=== PATIENT | male | born 1935 | race Caucasian/White ===

== ENCOUNTER 2017-03-05 13:53 | Inpatient (IN) | payer MEDICARE, BC ==
[~2017-03-05] VITALS: Ht 182.9 cm; Wt 61.2 kg
[~2017-03-05 13:53] MED LIST: ASPI81TA31 PO; ATOR80TA PO; CITA10TA9 PO; FINA5TAB11 PO; HYDR-3976 PO
--- NOTE | 2017-03-05 14:00 | NUR ---
PT IS IN ROOM #2B. DR OSORIO EVALUATED THE PT.
[2017-03-05] MEDS ORDERED: IV NORMAL SALINE 1000 ML BAG IV ONE (14:45)
[2017-03-05 15:20] LABS: BASOPHILS % (AUTO) 0.7 % (0.0-2.0); EOSINOPHILS # (AUTO) 0.1 K/uL (0.0-0.7); EOSINOPHILS % (AUTO) 2.1 % (0.0-7.0); HEMATOCRIT 32.7 % (36.7-47.1); HEMOGLOBIN 10.8 g/dL (12.5-16.3); LYMPHOCYTES # (AUTO) 0.8 K/uL (20.0-40.0); LYMPHOCYTES % (AUTO) 12.1 % (20.5-51.5); MEAN CORPUSCULAR HEMOGLOBIN 30.7 uug (23.8-33.4); MEAN CORPUSCULAR HGB CONC 33 g/dL (32.5-36.3); MEAN CORPUSCULAR VOLUME 92.8 fL (73.0-96.2); MONOCYTES # (AUTO) 0.9 K/uL (2.0-10.0); MONOCYTES % (AUTO) 12.6 % (0.0-11.0); NEUTROPHILS # (AUTO) 5.1 K/uL (1.8-8.9); NEUTROPHILS % (AUTO) 72.5 % (38.5-71.5); PLATELET COUNT (AUTO) 211 K/uL (152-348); RED BLOOD CELL COUNT(AUTO) 3.52 MIL/uL (4.06-5.63)
[2017-03-05 15:25] LABS: *BILIRUBIN,URIN NEGATIVE (NEGATIVE); *BLOOD, URINE 1+ (NEGATIVE); *CLARITY,URINE SLIGHTLY CLOUDY (CLEAR); *COLOR,URINE YELLOW (YELLOW); *KETONES,URINE 1+ (NEGATIVE); *PROTEIN,URINE NEGATIVE (NEGATIVE); LEUKOCYTE ESTERASE ,URINE NEGATIVE (NEGATIVE); NITRITE, URINE NEGATIVE (NEGATIVE); PH,URINE 7.5 (5.0-8.0); UGLUCOSE NEGATIVE (NEGATIVE)
[2017-03-05 15:38] LABS: ALANINE AMINOTRANSFERASE 12 U/L (16-63); ALKALINE PHOSPHATASE 72 U/L (50-136); ASPARTATE AMINOTRANSFERASE 16 U/L (15-37); BILIRUBIN,DIRECT 0.2 mg/dL (0.0-0.2); BILIRUBIN,TOTAL 0.8 mg/dL (0.2-1.0); CARBON DIOXIDE 28 mmol/L (21-32); CHLORIDE 105 mmol/L (98-107); CREATININE 0.9 mg/dL (0.6-1.3); GLUCOSE 92 mg/dL (74-106); POTASSIUM 3.9 mmol/L (3.5-5.1); TOTAL PROTEIN, SERUM 6.5 g/dL (6.4-8.2); UREA NITROGEN, BLOOD 20 mg/dL (7-18); URINE AMORPHOUS PHOSPHATES MODERATE /HPF; WBC,URINE 0-3 /HPF (0-3)
[2017-03-05 15:43] LABS: BACTERIA,URINE NONE SEEN /HPF (NONE SEEN); SQUAMOUS EPITHELIAL CELL,UR FEW /HPF (NONE SEEN)
[2017-03-05 15:45] LABS: ACETAMINOPHEN < 2.0 ug/mL (10-30)
[2017-03-05 15:46] LABS: THYROID STIMULATING HORMONE 3.826 mIU/mL (0.358-3.740)
[2017-03-05 16:04] LABS: ETHANOL < 3 MG/DL (0-0)
--- NOTE | 2017-03-05 18:03 | NUR ---
REPORT WAS GIVEN TO WARP KNITTER HELPER . PT WAS TRANSFERED TO ROOM #208.
--- NOTE | 2017-03-05 18:30 | NUR ---
received from ER awake but confused, on room air,tele applied SR 80's, denies of pain, oriented to self only, bed alarm on- will endorse to next shift
[2017-03-05 18:39] VITALS: BP 147/78
[2017-03-05] MEDS ORDERED: Z GUARD REMEDY PASTE 57 GM TUBE TOP PRN (19:15)
[2017-03-05] MEDS ORDERED: ENOXAPARIN SODIUM 40 MG/0.4 ML DISP.SYRIN SQ SCH ×2 (19:15→21:00)
--- NOTE | 2017-03-05 19:30 | NUR ---
admitted new patient ,awake,confused calm and cooperative,skin slightly jaundice,NSR on monitor,family at bedside, plan of care explained to patient and family, stated patient having 2 falls at home today,no injury or wound noted,fall precautions, bed alarm on, closely monitor.
[2017-03-05 20:00] VITALS: BP 118/70
[2017-03-05] MEDS: ATORVASTATIN 40 MG TABLET PO SCH (20:43)
[2017-03-05] MEDS: IV NS 1000 ML 1,000 ML IV PRN (20:53)
[2017-03-06] MEDS ORDERED: LORAZEPAM 1 MG TABLET PO ONE (01:15)
--- NOTE | 2017-03-06 01:15 | NUR ---
patient got very confused,agitated, kicking,hitting,try to remove ivf and tele monitor, was notified, Ativan 1 mg po admin.
[2017-03-06] MEDS ORDERED: LORAZEPAM 1 MG TABLET ONE (01:33)
--- NOTE | 2017-03-06 02:35 | NUR ---
Troponin 0.103 ,Oscar Moore SIGNS SALES REPRESENTATIVE was notified order received .patient calm down, no acute distress.
[2017-03-06 04:00] VITALS: BP 133/51
--- NOTE | 2017-03-06 08:00 | NUR ---
awake, alert, very confused, oriented to self only, trying to get out of bed, legs on the rail, repositioned up in bed, bed alarm on, no distress noted, has bruises on right thigh and abrased area on left epperson, fed with breakfast by EPIC ANALYST, aspiration precaution observed
[2017-03-06 08:18] LABS: BASOPHILS # (AUTO) 0.1 K/uL (0.0-8.0); BASOPHILS % (AUTO) 0.8 % (0.0-2.0); HEMOGLOBIN 10.6 g/dL (12.5-16.3); LYMPHOCYTES # (AUTO) 0.7 K/uL (20.0-40.0); MEAN CORPUSCULAR HEMOGLOBIN 30.7 uug (23.8-33.4); MEAN CORPUSCULAR HGB CONC 33 g/dL (32.5-36.3); MEAN CORPUSCULAR VOLUME 92.4 fL (73.0-96.2); MONOCYTES # (AUTO) 1.4 K/uL (2.0-10.0); MONOCYTES % (AUTO) 10.1 % (0.0-11.0); NEUTROPHILS # (AUTO) 11.6 K/uL (1.8-8.9); NEUTROPHILS % (AUTO) 84.1 % (38.5-71.5); PLATELET COUNT (AUTO) 224 K/uL (152-348); RED BLOOD CELL COUNT(AUTO) 3.47 MIL/uL (4.06-5.63); WHITE BLOOD COUNT (AUTO) 13.8 K/uL (3.6-10.2)
[2017-03-06] MEDS: ASPIRIN 81 MG TAB.CHEW PO SCH (08:32)
[2017-03-06] MEDS: CITALOPRAM 10 MG TABLET PO SCH (08:32)
[2017-03-06] MEDS: FINASTERIDE 5 MG TABLET PO SCH (08:32)
[2017-03-06 09:02] LABS: IRON, SERUM 9 ug/dL (50-175)
[2017-03-06 09:09] LABS: CHOLESTEROL 136 mg/dL (<200); HDL CHOLESTEROL 53 mg/dL (40-60); TRIGLYCERIDES 36 MG/DL (30-150)
[2017-03-06 09:20] LABS: ALANINE AMINOTRANSFERASE 14 U/L (16-63); ALKALINE PHOSPHATASE 71 U/L (50-136); ASPARTATE AMINOTRANSFERASE 32 U/L (15-37); BILIRUBIN,TOTAL 1.1 mg/dL (0.2-1.0); CARBON DIOXIDE 23 mmol/L (21-32); CHLORIDE 106 mmol/L (98-107); GLUCOSE 96 mg/dL (74-106); LIPASE 34 U/L (73-393); MAGNESIUM 1.5 mg/dL (1.8-2.4); PHOSPHOROUS 3.1 mg/dL (2.5-4.9); POTASSIUM 3.9 mmol/L (3.5-5.1); TOTAL PROTEIN, SERUM 6.5 g/dL (6.4-8.2); UREA NITROGEN, BLOOD 19 mg/dL (7-18)
--- NOTE | 2017-03-06 10:00 | NUR ---
placed on margaux chair, call light with reach, monitored closely
--- NOTE | 2017-03-06 10:30 | NUR ---
seen by PT- ambulated in [place]- see notes
[2017-03-06 11:45] VITALS: BP 132/59
[2017-03-06] MEDS: IV NS 1000 ML 1,000 ML IV PRN (12:11)
--- NOTE | 2017-03-06 13:00 | NUR ---
back to bed with assist- bed alrm on, family here visiting, 2d tv technician here
--- NOTE | 2017-03-06 14:40 | NUR ---
out of bed, assisted to margaux chair, here at bedside
[2017-03-06 15:56] VITALS: BP 139/54
--- NOTE | 2017-03-06 17:00 | NUR ---
back to bed, still trying to get out of bed, kept clean and dry, at bedside
--- NOTE | 2017-03-06 18:47 | NUR ---
still trying to get out of bed, sitter at bedside, all needs attended and met, no distress noted, remains on SR
[2017-03-06 20:00] VITALS: BP 155/78
[2017-03-06] MEDS ORDERED: ENOXAPARIN SODIUM 40 MG/0.4 ML DISP.SYRIN SQ SCH (21:00)
--- NOTE | 2017-03-06 22:00 | NUR ---
Patient constantly tries to get out of bed, tries to pull out IV and bandages on right elbow. Placed patient on margaux chair, patient settled down. 1:1 sitter provided for safety. Will continue to monitor.
[2017-03-06] MEDS: ATORVASTATIN 40 MG TABLET PO SCH (22:15)
[2017-03-06] MEDS: ACETAMINOPHEN 325 MG TABLET PO PRN (22:15)
[2017-03-06] MEDS: METOPROLOL TARTRATE 25 MG TABLET PO SCH (22:16)
[2017-03-06] MEDS: ENOXAPARIN SODIUM 60 MG/0.6 ML DISP.SYRIN SQ SCH (22:19)
[2017-03-07] VITALS: BP 140/70
[2017-03-07] MEDS: IV NS 1000 ML 1,000 ML IV PRN (01:49)
[2017-03-07] MEDS: ONDANSETRON 4 MG/2 ML VIAL IV PRN (02:03)
[2017-03-07 05:00] VITALS: BP 131/65
--- NOTE | 2017-03-07 06:30 | NUR ---
Patient awake most of the night, keeps eyes close but easily wakes up. Patient more comfortable in margaux chair than in bed, does not try to get up. Patient is in no distress, no sob, no repeated episodes of c/o nausea/vomiting. Provided oral fluids. IVF infusing, no infiltration noted. Safety measures in place, 1:1 sitter provided, will continue to monitor.
[2017-03-07 07:07] LABS: BASOPHILS % (AUTO) 0.1 % (0.0-2.0); HEMATOCRIT 32.3 % (36.7-47.1); HEMOGLOBIN 10.7 g/dL (12.5-16.3); LYMPHOCYTES # (AUTO) 0.8 K/uL (20.0-40.0); LYMPHOCYTES % (AUTO) 3.8 % (20.5-51.5); MEAN CORPUSCULAR HEMOGLOBIN 30.7 uug (23.8-33.4); MEAN CORPUSCULAR HGB CONC 33 g/dL (32.5-36.3); MEAN CORPUSCULAR VOLUME 92.7 fL (73.0-96.2); MONOCYTES # (AUTO) 1.7 K/uL (2.0-10.0); MONOCYTES % (AUTO) 8.2 % (0.0-11.0); NEUTROPHILS # (AUTO) 18.4 K/uL (1.8-8.9); NEUTROPHILS % (AUTO) 87.9 % (38.5-71.5); PLATELET COUNT (AUTO) 283 K/uL (152-348); RED BLOOD CELL COUNT(AUTO) 3.49 MIL/uL (4.06-5.63); WHITE BLOOD COUNT (AUTO) 20.9 K/uL (3.6-10.2)
[2017-03-07 07:22] VITALS: BP 149/68
[2017-03-07 07:28] LABS: ALANINE AMINOTRANSFERASE 32 U/L (16-63); ALKALINE PHOSPHATASE 73 U/L (50-136); ASPARTATE AMINOTRANSFERASE 109 U/L (15-37); BILIRUBIN,TOTAL 0.9 mg/dL (0.2-1.0); CARBON DIOXIDE 23 mmol/L (21-32); CHLORIDE 108 mmol/L (98-107); CREATININE 1.8 mg/dL (0.6-1.3); GLUCOSE 96 mg/dL (74-106); MAGNESIUM 1.9 mg/dL (1.8-2.4); PHOSPHOROUS 4.1 mg/dL (2.5-4.9); POTASSIUM 4.5 mmol/L (3.5-5.1); TOTAL PROTEIN, SERUM 6.9 g/dL (6.4-8.2); UREA NITROGEN, BLOOD 33 mg/dL (7-18)
--- NOTE | 2017-03-07 08:00 | NUR ---
still very confused, still tries to get out of bed, sitter at bedside, fed with breakfast by CORE WINDER MACHINE OPERATOR, took his meds, aspiration precautions observed, Tele SR with PACs, bed alarm on, Troponin level 6.793- called Dr Kaufman and informed, no order given
[2017-03-07] MEDS: FINASTERIDE 5 MG TABLET PO SCH (08:29)
[2017-03-07] MEDS: ASPIRIN 81 MG TAB.CHEW PO SCH (08:29)
[2017-03-07] MEDS: CITALOPRAM 10 MG TABLET PO SCH (08:30)
[2017-03-07] MEDS: METOPROLOL TARTRATE 25 MG TABLET PO SCH ×2 (08:30→21:02)
[2017-03-07] MEDS: ENOXAPARIN SODIUM 60 MG/0.6 ML DISP.SYRIN SQ SCH ×2 (08:31→21:05)
--- NOTE | 2017-03-07 11:00 | NUR ---
pt calm and resting, seen by Dr Franco with orders- in need of urine specimen- 1:[address] Wright informed of elevated troponin and bun and creat- no order given
[2017-03-07] MEDS ORDERED: DOSING BY PHARMACY-MD TO SPECIFY MED/ROUTE XX PRN (11:45)
[2017-03-07 12:01] VITALS: BP 116/58
[2017-03-07 12:02] LABS: BAND % (MANUAL) 7 % (0-10); LYMPHOCYTES % (MANUAL) 4 % (20-40); MONOCYTES % (MANUAL) 5 % (2-10); NEUTROPHILS % (MANUAL) 84 % (42-75)
[2017-03-07] MEDS ORDERED: VANCOMYCIN IV 1 G in PREMIXED 0 EACH IV ONE (14:15)
[2017-03-07] MEDS: PIPERACILLIN/TAZOBACTAM/D5W 2.25 G in PREMIXED 1 EACH IV SCH ×3 (14:29→23:38)
--- NOTE | 2017-03-07 14:58 | NUR ---
Clinical pharmacy Note: Vancomycin Pharmacy to Dose Subjective: To start vancomycin in this 81 y/o gentleman for indication of sepsis Objective: height 182 cm weight 61 kg BUN 33 Scr 1.8 Wbc 20.9 temp 98.6 Assessment/Plan Due to advanced age and renal function, will dose per fall off level for now. 1gm x 1 given today at 1430. Random level ordered with am labs tomorrow. Will check level and dose as needed. Will follow renal function and consider ordering scheduled regimen if were to appear stable.
--- NOTE | 2017-03-07 15:25 | NUR ---
voided small amount of very cloudy urine- sent to lab
[2017-03-07 16:00] VITALS: BP 139/61
--- NOTE | 2017-03-07 16:00 | NUR ---
restless and looks in discomfort, urinary bladder looks distended, bladder scan done- obtained >900ml, informed with order to insert nazario cath and send urine for culture
--- NOTE | 2017-03-07 16:23 | NUR ---
nazario cath coudet #16 inserted- dtolerated fairly- drained over 1000ml, urine specimen sent to lab, Dr Kaufman spoke to at length and so with Dr Bowling (family MD) and Dr Wright- pt to be DNR/DNI
[2017-03-07 16:39] LABS: *BILIRUBIN,URIN NEGATIVE (NEGATIVE); *BLOOD, URINE 3+ (NEGATIVE); *CLARITY,URINE TURBID (CLEAR); *COLOR,URINE YELLOW (YELLOW); *KETONES,URINE 1+ (NEGATIVE); *PROTEIN,URINE 2+ (NEGATIVE); *UROBILINOGEN,URINE 0.2 E.U./dl (NORMAL); LEUKOCYTE ESTERASE ,URINE 3+ (NEGATIVE); NITRITE, URINE NEGATIVE (NEGATIVE); UGLUCOSE NEGATIVE (NEGATIVE)
[2017-03-07 17:09] LABS: *CREATININE,URINE 109.3 mg/dL (30-125); *URINE TOTAL PROTEIN RANDOM 134.6 mg/dL (<150/24HR)
--- NOTE | 2017-03-07 18:00 | NUR ---
pt is resting on bed. pt urine draining amounted 1750 ml . safety was provided. Medications are given.
[2017-03-07 18:31] LABS: BACTERIA,URINE MANY /HPF (NONE SEEN); SQUAMOUS EPITHELIAL CELL,UR MODERATE /HPF (NONE SEEN); WBC,URINE TNTC /HPF (0-3)
[2017-03-07 19:00] VITALS: BP 109/54
--- NOTE | 2017-03-07 19:30 | NUR ---
PATIENT IN BED AWAKE, NO SOB NO CHEST PAIN NOTED, RHYTHM IS SINUS RHYTHM AT THIS TIME, KIM CATH DRAINING WITH BLOOD TINGE COLOR, CONT TO MONITOR.
--- NOTE | 2017-03-07 20:00 | NUR ---
DR RENEE UROLOGIST CAME TO SEE THE PATIENT WITH NO NEW ORDER AT THIS TIME. CONT TO MONITOR.
[2017-03-07] MEDS: ATORVASTATIN 40 MG TABLET PO SCH (21:01)
[2017-03-08] VITALS (7 sets, daily range): BP systolic 90–113; BP diastolic 41–67
--- NOTE | 2017-03-08 02:11 | NUR ---
PATIENT KIM CATH STILL DRAINING WITH BLOODY TINGE COLOR URINE, NOTIFY DR. JURGEN RIOJAS WITH ORDER OF CBC, AND IRRIGATE THE KIM NEEDED.
--- NOTE | 2017-03-08 02:15 | NUR ---
PATIENT KIM CATH DRAINING WITH BLOODY URINE, IRRIGATED PATIENT KIM UNTIL FAIRLY CLEAR, NO SOB NO CHEST PAIN NOTED, RHYTHM SINUS RHYTHM, NO COMPLAIN OF PAIN, AWAKE, VERBALLY RESPONSIVE, CONT TO MONITOR. CONT 1;1 SITTER FOR SAFETY, NO BEHAVIORAL PROBLEM NOTED, AT THIS TIME. CONT TO MONITOR.
[2017-03-08 02:55] LABS: BASOPHILS % (AUTO) 0.3 % (0.0-2.0); EOSINOPHILS % (AUTO) 0.3 % (0.0-7.0); HEMATOCRIT 29.3 % (36.7-47.1); HEMOGLOBIN 9.9 g/dL (12.5-16.3); LYMPHOCYTES # (AUTO) 0.6 K/uL (20.0-40.0); LYMPHOCYTES % (AUTO) 3.8 % (20.5-51.5); MEAN CORPUSCULAR HEMOGLOBIN 31.2 uug (23.8-33.4); MEAN CORPUSCULAR HGB CONC 34 g/dL (32.5-36.3); MEAN CORPUSCULAR VOLUME 92.4 fL (73.0-96.2); MONOCYTES # (AUTO) 0.8 K/uL (2.0-10.0); NEUTROPHILS # (AUTO) 14.6 K/uL (1.8-8.9); NEUTROPHILS % (AUTO) 90.6 % (38.5-71.5); PLATELET COUNT (AUTO) 268 K/uL (152-348); RED BLOOD CELL COUNT(AUTO) 3.17 MIL/uL (4.06-5.63); WHITE BLOOD COUNT (AUTO) 16.1 K/uL (3.6-10.2)
--- NOTE | 2017-03-08 03:37 | NUR ---
PATIENT STAT CBC RESULTED HGH 9.9, HCT 29.3, CONT TO MONITOR.
[2017-03-08] MEDS: PIPERACILLIN/TAZOBACTAM/D5W 2.25 G in PREMIXED 1 EACH IV SCH ×3 (05:06→17:21)
--- NOTE | 2017-03-08 06:28 | NUR ---
PATIENT AWAKE EYES OPENS, NO SOB NO CHEST PAIN, RHYTHM IS SINUS RHYTHM AT THIS TIME, KIM CATH DRAINING WITH BLOODY TINGED COLOR, IRRIGATE KIM ORDERED WITH HELP, CONT TO MONITOR HGH AND HCT, CONT 1;1 SITTER FOR SAFETY, NO BEHAVIORAL PROBLEM NOTED AT THIS TIME. CONT TO MONITOR.
[2017-03-08 08:17] LABS: BASOPHILS # (AUTO) 0.1 K/uL (0.0-8.0); BASOPHILS % (AUTO) 0.6 % (0.0-2.0); EOSINOPHILS # (AUTO) 0.2 K/uL (0.0-0.7); EOSINOPHILS % (AUTO) 1.7 % (0.0-7.0); HEMATOCRIT 29.9 % (36.7-47.1); HEMOGLOBIN 10.1 g/dL (12.5-16.3); LYMPHOCYTES # (AUTO) 0.7 K/uL (20.0-40.0); MEAN CORPUSCULAR HGB CONC 34 g/dL (32.5-36.3); MONOCYTES # (AUTO) 0.7 K/uL (2.0-10.0); MONOCYTES % (AUTO) 4.8 % (0.0-11.0); NEUTROPHILS % (AUTO) 87.9 % (38.5-71.5); PLATELET COUNT (AUTO) 279 K/uL (152-348); RED BLOOD CELL COUNT(AUTO) 3.25 MIL/uL (4.06-5.63); WHITE BLOOD COUNT (AUTO) 13.6 K/uL (3.6-10.2)
[2017-03-08] MEDS: METOPROLOL TARTRATE 25 MG TABLET PO SCH ×2 (08:23→21:00)
[2017-03-08] MEDS: FINASTERIDE 5 MG TABLET PO SCH (08:23)
[2017-03-08] MEDS: CITALOPRAM 10 MG TABLET PO SCH (08:23)
[2017-03-08] MEDS: ASPIRIN 81 MG TAB.CHEW PO SCH (09:00)
[2017-03-08] MEDS: ENOXAPARIN SODIUM 60 MG/0.6 ML DISP.SYRIN SQ SCH (09:00)
[2017-03-08 09:13] LABS: ALANINE AMINOTRANSFERASE 28 U/L (16-63); ALKALINE PHOSPHATASE 57 U/L (50-136); ASPARTATE AMINOTRANSFERASE 60 U/L (15-37); BILIRUBIN,TOTAL 0.6 mg/dL (0.2-1.0); CARBON DIOXIDE 25 mmol/L (21-32); CHLORIDE 111 mmol/L (98-107); CREATINE KINASE, TOTAL 263 U/L (39-308); CREATININE 1.6 mg/dL (0.6-1.3); GLUCOSE 89 mg/dL (74-106); MAGNESIUM 2.1 mg/dL (1.8-2.4); PHOSPHOROUS 3.8 mg/dL (2.5-4.9); POTASSIUM 3.7 mmol/L (3.5-5.1); UREA NITROGEN, BLOOD 40 mg/dL (7-18); VANCOMYCIN,RANDOM 8.4 ug/mL (18.0-26.0)
--- NOTE | 2017-03-08 10:05 | NUR ---
Upon receiving report patient assessed and bloody urine output noted. As reported both attending physician and urologist aware. Hicks irrigated at this time and several blood clots removed. Patient reporting tolerable level of pain 1/10. vitals stable at this time.
[2017-03-08] MEDS ORDERED: VANCOMYCIN IV 1 G in PREMIXED 0 EACH IV ONE (11:00)
--- NOTE | 2017-03-08 14:07 | NUR ---
Clinical pharmacy Note: Vancomycin Pharmacy to Dose Subjective: To continue vancomycin in this 81 y/o gentleman for indication of sepsis Objective: height 182 cm weight 61 kg BUN 40 Scr 1.6 Wbc 13.6 temp 98 Vanco random level: 8.4 (with am labs- post one dose of 1gm yesterday at 1430) UC + Staph - pending sensitivity Assessment/Plan Due to advanced age and renal function, will dose per fall off level for now. Will give vanco 1gm IVPB x1 today at 1200. Random level ordered with am labs tomorrow. Will check level and dose as needed. Will follow renal function and consider ordering scheduled regimen if were to appear stable.
--- NOTE | 2017-03-08 19:47 | NUR ---
RECEIVED PATIENT IN BED AWAKE, VERBALLY RESPONSIVE, KIM CATH PATENT DRAINING WITH BLOOD TINGED COLOR URINE, DR RENEE UROLOGIST CAME TO SEE THE PATIENT WITH NEW INSTRUCTIONS. CONT TO MONITOR.
[2017-03-08] MEDS: ATORVASTATIN 40 MG TABLET PO SCH (22:01)
[2017-03-09 00:02] VITALS: BP 102/54
[2017-03-09] MEDS: PIPERACILLIN/TAZOBACTAM/D5W 2.25 G in PREMIXED 1 EACH IV SCH ×3 (01:01→11:23)
[2017-03-09] MEDS: ACETAMINOPHEN 325 MG TABLET PO PRN ×2 (01:02→23:23)
[2017-03-09 04:45] VITALS: BP 113/52
--- NOTE | 2017-03-09 06:15 | NUR ---
PATIENT SLEPT MOST OF THE NIGHT, KIM CATH DRAINING WITH PALE BLOOD TINGED COLOR URINE IN MODERATE AMOUNT, IRRIGATE KIM WITH NS X2 TO PREVENT CLOTS FORMING, MEDICATED FOR MILD PAIN GEN. WITH HELP AFTER ONE HOUR, NO SOB NO CHEST PAIN, RHYTHM SINUS RHYTHM, RESPIRATION EVEN AND UNLABORED, OXYGEN SAT WNL, CONT 1;1 SITTER FOR SAFETY. KEPT COMFORTABLE.
[2017-03-09 07:24] LABS: EOSINOPHILS # (AUTO) 0.5 K/uL (0.0-0.7); LYMPHOCYTES # (AUTO) 0.8 K/uL (20.0-40.0); MONOCYTES # (AUTO) 0.5 K/uL (2.0-10.0); RED BLOOD CELL COUNT(AUTO) 2.86 MIL/uL (4.06-5.63)
[2017-03-09 07:25] LABS: CARBON DIOXIDE 25 mmol/L (21-32); CHLORIDE 111 mmol/L (98-107); CREATININE 1.1 mg/dL (0.6-1.3); GLUCOSE 87 mg/dL (74-106); MAGNESIUM 1.8 mg/dL (1.8-2.4); PHOSPHOROUS 2.6 mg/dL (2.5-4.9); UREA NITROGEN, BLOOD 35 mg/dL (7-18); VANCOMYCIN,RANDOM 11.9 ug/mL (18.0-26.0)
[2017-03-09 07:36] LABS: BASOPHILS % (AUTO) 0.5 % (0.0-2.0); EOSINOPHILS % (AUTO) 7.8 % (0.0-7.0); HEMOGLOBIN 8.9 g/dL (12.5-16.3); LYMPHOCYTES % (AUTO) 11.1 % (20.5-51.5); MEAN CORPUSCULAR HEMOGLOBIN 31.1 uug (23.8-33.4); MEAN CORPUSCULAR HGB CONC 34 g/dL (32.5-36.3); MEAN CORPUSCULAR VOLUME 91.9 fL (73.0-96.2); MONOCYTES % (AUTO) 7.2 % (0.0-11.0); NEUTROPHILS % (AUTO) 73.4 % (38.5-71.5)
[2017-03-09 07:37] LABS: WHITE BLOOD COUNT (AUTO) 6.8 K/uL (3.6-10.2)
[2017-03-09 07:38] LABS: HEMATOCRIT 26.3 % (36.7-47.1); PLATELET COUNT (AUTO) 206 K/uL (152-348)
[2017-03-09] MEDS: ASPIRIN 81 MG TAB.CHEW PO SCH (08:41)
[2017-03-09] MEDS: METOPROLOL TARTRATE 25 MG TABLET PO SCH ×2 (08:41→21:20)
[2017-03-09] MEDS: CITALOPRAM 10 MG TABLET PO SCH (08:41)
[2017-03-09] MEDS: FINASTERIDE 5 MG TABLET PO SCH (08:41)
[2017-03-09 08:46] VITALS: BP 128/50
[2017-03-09] MEDS ORDERED: VANCOMYCIN IV 1 G in PREMIXED 0 EACH IV ONE ×2 (09:30→11:30)
[2017-03-09 10:07] LABS: A/G RATIO 0.8 (0.7-1.7); ALBUMIN 2.4 g/dL (2.9-4.4); ALPHA-1-GLOBULIN 0.5 g/dL (0.0-0.4); BETA GLOBULIN 0.8 g/dL (0.7-1.3); GAMMA GLOBULIN 0.6 g/dL (0.4-1.8); GLOBULIN, TOTAL 2.9 g/dL (2.2-3.9); M-SPIKE Not Observed g/dL (Not Observed)
[2017-03-09] MEDS ORDERED: POTASSIUM CHLORIDE 20 MEQ POWDER PACKET PO ONE (12:00)
[2017-03-09] MEDS ORDERED: POTASSIUM CHLORIDE 50 ML IV SCH (12:00)
--- NOTE | 2017-03-09 14:48 | NUR ---
Clinical pharmacy Note: Vancomycin Pharmacy to Dose Subjective: To continue vancomycin in this 81 y/o gentleman for indication of sepsis due to UTI Objective: height 182 cm weight 61 kg BUN 35 Scr 1.1 Wbc 6.8 temp 99.4 Vancomycin random 11.9- today at 0600 Assessment/Plan Since random level is under 20, 1 gram Vancomycin was given today at 1200. Since renal function is stable, will start Vancomycin 1 gram IV every 23 hrs (second dose tomorrow at 1100) and draw trough by 4th dose(not ordered yet) for expected trough around 15. Will monitor daily.
[2017-03-09 15:07] VITALS: BP 93/49
[2017-03-09] MEDS: CLOPIDOGREL 75 MG TABLET PO SCH (17:26)
[2017-03-09] MEDS: PIPERACILLIN/TAZOBACTAM/D5W 50 ML IV SCH ×2 (17:27→23:23)
[2017-03-09 19:00] VITALS: BP 108/52
--- NOTE | 2017-03-09 19:35 | NUR ---
RECEIVED PATIENT IN BED, NO CHEST PAIN NO COUGHING NOTED, KIM CATH PATENT, WITH BLOOD TINGED COLOR URINE, UROLOGIST CAME TO SEE THE PATIENT, IRRIGATE KIM CATH ORDERED, CONT 1;1 SITTER FOR SAFETY, NO COMPLAIN OF PAIN CONT TO MONITOR.
[2017-03-09] MEDS: ATORVASTATIN 40 MG TABLET PO SCH (21:19)
--- NOTE | 2017-03-10 03:30 | NUR ---
HEARD A BANG NOISE WHILE I WAS STATION CHARTING. WHEN WENT TO ROOM 208 FOUND PATIENT SEATING ON THE FLOOR WHILE SITTER HOLDING THE PATIENT. WHEN INNERVED THE SITTER, SITTER STATED THAT PATIENT TRIED TO GET OUT OF BED TRYING TO WALK, SITTER TRIED TO UNPLUG THE IV PUMP FROM THE WALL, THE PATIENT TRIP FROM KIM CATHETER CAUSING OFF BALANCE LANDED ON BOTH KNEES. PATIENT HAS NO APPARENT INJURY NOTED AT THIS TIME, CONT TO MONITOR. REORIENT THE PATIENT NOT TO WALK, CONT 1;1 SITTER. PATIENT HAS NO COMPLAIN OF PAIN NOR DISCOMFORT, SKIN INTACT. CONT TO MONITOR.
[2017-03-10 04:00] VITALS: BP 139/68
--- NOTE | 2017-03-10 05:00 | NUR ---
PATIENT AWAKE VERBALLY RESPONSIVE NO COMPLAIN OF PAIN NOR DISCOMFORT, CONT 1;1 SITTER FOR SAFETY, NOTED WITH BRUISE ON R KNEE SKIN INTACT, KEPT CLEAN AND ICE PACK WAS APPLIED, NO COMPLAIN OF PAIN , ABLE TO MOVED BOTH LOWER EXTREMETY WITHOUT DIFFICULTY. DR. UGARTE S WAS NOTIFY OF INCIDENT. CONT TO MONITOR.
[2017-03-10] MEDS: PIPERACILLIN/TAZOBACTAM/D5W 50 ML IV SCH ×4 (05:40→23:22)
[2017-03-10 06:06] LABS: *TESTOSTERONE, SERUM 36 ng/dL (264-916)
[2017-03-10 06:56] LABS: BASOPHILS % (AUTO) 0.4 % (0.0-2.0); EOSINOPHILS # (AUTO) 0.5 K/uL (0.0-0.7); EOSINOPHILS % (AUTO) 7.5 % (0.0-7.0); HEMATOCRIT 26.2 % (36.7-47.1); HEMOGLOBIN 8.9 g/dL (12.5-16.3); LYMPHOCYTES # (AUTO) 0.8 K/uL (20.0-40.0); LYMPHOCYTES % (AUTO) 12.1 % (20.5-51.5); MEAN CORPUSCULAR HGB CONC 34 g/dL (32.5-36.3); MEAN CORPUSCULAR VOLUME 91.2 fL (73.0-96.2); MONOCYTES # (AUTO) 0.6 K/uL (2.0-10.0); MONOCYTES % (AUTO) 8.7 % (0.0-11.0); NEUTROPHILS # (AUTO) 4.8 K/uL (1.8-8.9); NEUTROPHILS % (AUTO) 71.3 % (38.5-71.5); PLATELET COUNT (AUTO) 219 K/uL (152-348); RED BLOOD CELL COUNT(AUTO) 2.87 MIL/uL (4.06-5.63); WHITE BLOOD COUNT (AUTO) 6.7 K/uL (3.6-10.2)
[2017-03-10 07:08] LABS: ALANINE AMINOTRANSFERASE 28 U/L (16-63); ALKALINE PHOSPHATASE 54 U/L (50-136); ASPARTATE AMINOTRANSFERASE 44 U/L (15-37); BILIRUBIN,TOTAL 0.5 mg/dL (0.2-1.0); CARBON DIOXIDE 25 mmol/L (21-32); CHLORIDE 109 mmol/L (98-107); CREATININE 0.9 mg/dL (0.6-1.3); GLUCOSE 87 mg/dL (74-106); MAGNESIUM 1.6 mg/dL (1.8-2.4); PHOSPHOROUS 2.8 mg/dL (2.5-4.9); POTASSIUM 3.4 mmol/L (3.5-5.1); TOTAL PROTEIN, SERUM 5.5 g/dL (6.4-8.2); UREA NITROGEN, BLOOD 24 mg/dL (7-18)
--- NOTE | 2017-03-10 07:43 | NUR ---
ENDORSED TO NEXT SHIFT TO NOTIFY THE REGARDING THE INCIDENT.
[2017-03-10] MEDS: CITALOPRAM 10 MG TABLET PO SCH (08:51)
[2017-03-10] MEDS: FINASTERIDE 5 MG TABLET PO SCH (08:51)
[2017-03-10] MEDS: METOPROLOL TARTRATE 25 MG TABLET PO SCH ×2 (08:52→20:37)
[2017-03-10] MEDS: ASPIRIN 81 MG TAB.CHEW PO SCH (08:52)
[2017-03-10] MEDS: ACETAMINOPHEN 325 MG TABLET PO PRN ×2 (09:43→20:34)
[2017-03-10] MEDS ORDERED: POTASSIUM CHLORIDE 20 MEQ TAB.PRT.SR PO ONE (11:00)
[2017-03-10] MEDS ORDERED: VANCOMYCIN IV 1 G in PREMIXED 0 EACH IV SCH (11:00)
[2017-03-10] MEDS: CLOPIDOGREL 75 MG TABLET PO SCH (11:11)
[2017-03-10] MEDS: MAGNESIUM SULFATE/D5W 100 ML IV SCH ×2 (11:11→13:31)
--- NOTE | 2017-03-10 11:30 | NUR ---
PT NOTED TO HAVE ABOUT 50CC REDDISH URINE IN KIM BAG, BLADDER SCAN PERFORMED SHOWING 430CC RETAINED URINE. ATTEMPTED TO FLUSH AND ADVANCE CATHETER BUT RESISTANCE WAS MET. CALLED DR CORREA EXCHANGE AND ANALOG DESIGN ENGINEER RETURNED PHONE BUT NO PRIVILEGES TO GIVE ORDERS. ENDORSED TO CHARGE NURSE AND MANAGER ZONE.
[2017-03-10 11:32] VITALS: BP 117/55
[2017-03-10 13:00] VITALS: BP 142/63
--- NOTE | 2017-03-10 14:10 | NUR ---
Clinical pharmacy Note: Vancomycin Pharmacy to Dose Subjective: To continue vancomycin in this 81 y/o gentleman for indication of sepsis due to UTI Objective: height 182 cm weight 61 kg BUN 24 Scr 0.9 Wbc 6.7 temp 98.7 Assessment/Plan Since Scr further improved overnight, will reschedule Vancomycin 1 gram IV every 23 hrs to 1gm q20hr for new expected trough of 15.04. First dose at 1400 today, will order trough before 4th scheduled dose (not ordered yet). Will follow
[2017-03-10] MEDS ORDERED: LIDOCAINE 2% (UROJET) 10 ML JELLY MM PRN (15:00)
--- NOTE | 2017-03-10 15:02 | NUR ---
CHARGE NURSE WAS ABLE TO REACH DR CORREA, ADVANCE CATHETER AND 625CC DARK RED URINE WAS DRAINED. BLADDER SCAN DONE WHICH SHOWED 30CC, WILL CONTINUE TO MONITOR CLOSELY
[2017-03-10] MEDS: VANCOMYCIN IV 1 G in PREMIXED 0 EACH IV SCH (15:22)
--- NOTE | 2017-03-10 17:52 | NUR ---
PT RESTING IN BED. KIM CATHETER CONTINUING TO DRAIN GOOD URINE OUTPUT. STILL RED IN COLOR. 1:1 SITTER MAINTAINED THROUGHOUT SHIFT FOR SAFETY.CALL LIGHT IN REACH.
[2017-03-10] MEDS: ATORVASTATIN 40 MG TABLET PO SCH (20:27)
[2017-03-10 20:38] VITALS: BP 145/61
--- NOTE | 2017-03-10 20:54 | NUR ---
PATIENT HAS EPISODE OF AGITATION , TRIES TO PULL OUT KIM CATHETER, RESIST CARE, ASSESSED FOR PAIN, CONT ON 1;1 SITTER FOR SAFETY, DR REAL CAME IN AND REPORT THE BEHAVIOR WITH ORDER. ORDER NOTED AND CARRIED OUT.
[2017-03-10] MEDS: QUETIAPINE FUMARATE 25 MG TABLET PO PRN (20:58)
[2017-03-10] MEDS ORDERED: QUETIAPINE FUMARATE 25 MG TABLET ONE (21:13)
[2017-03-11] MEDS: ONDANSETRON 4 MG/2 ML VIAL IV PRN (00:14)
[2017-03-11 04:00] VITALS: BP 131/61
[2017-03-11] MEDS: PIPERACILLIN/TAZOBACTAM/D5W 50 ML IV SCH ×2 (05:42→12:12)
--- NOTE | 2017-03-11 06:54 | NUR ---
PATIENT HAD FEW HOURS SLEEP, NO SOB NO CHEST PAIN, DENIES PAIN, KIM CATH DRAINING WITH BLOOD TINGED COLOR URINE, IRRIGATION DONE ORDERED WITH SMALL AMOUNT OF BLOOD CLOTS NOTED, PATIENT HAD EPISODES OF AGITATION, YELLING AND SCREAMING, KEPT COMFORTABLE, MD AWARE, CONT 1;1 SITTER.
[2017-03-11 07:03] LABS: BASOPHILS % (AUTO) 0.5 % (0.0-2.0); EOSINOPHILS # (AUTO) 0.3 K/uL (0.0-0.7); EOSINOPHILS % (AUTO) 3.6 % (0.0-7.0); HEMATOCRIT 26.7 % (36.7-47.1); LYMPHOCYTES # (AUTO) 0.8 K/uL (20.0-40.0); LYMPHOCYTES % (AUTO) 11.3 % (20.5-51.5); MEAN CORPUSCULAR HEMOGLOBIN 30.5 uug (23.8-33.4); MEAN CORPUSCULAR HGB CONC 34 g/dL (32.5-36.3); MEAN CORPUSCULAR VOLUME 90.8 fL (73.0-96.2); MONOCYTES # (AUTO) 0.8 K/uL (2.0-10.0); NEUTROPHILS # (AUTO) 5.2 K/uL (1.8-8.9); NEUTROPHILS % (AUTO) 73.6 % (38.5-71.5); PLATELET COUNT (AUTO) 227 K/uL (152-348); RED BLOOD CELL COUNT(AUTO) 2.94 MIL/uL (4.06-5.63); WHITE BLOOD COUNT (AUTO) 7.1 K/uL (3.6-10.2)
[2017-03-11 07:13] VITALS: BP 131/61
[2017-03-11 07:17] LABS: CARBON DIOXIDE 22 mmol/L (21-32); CHLORIDE 107 mmol/L (98-107); CREATININE 0.9 mg/dL (0.6-1.3); GLUCOSE 85 mg/dL (74-106); MAGNESIUM 1.8 mg/dL (1.8-2.4); PHOSPHOROUS 3.3 mg/dL (2.5-4.9); POTASSIUM 3.3 mmol/L (3.5-5.1); UREA NITROGEN, BLOOD 22 mg/dL (7-18)
--- NOTE | 2017-03-11 07:47 | NUR ---
SEROQUEL WAS PULLED FROM THE Witel AT 2112 DURING THE ASSISTANT EXECUTIVE HOUSEKEEPER.
[2017-03-11] MEDS: FINASTERIDE 5 MG TABLET PO SCH (08:37)
[2017-03-11] MEDS: CITALOPRAM 10 MG TABLET PO SCH (08:38)
[2017-03-11] MEDS: CLOPIDOGREL 75 MG TABLET PO SCH (08:38)
[2017-03-11] MEDS: ASPIRIN 81 MG TAB.CHEW PO SCH (08:38)
[2017-03-11] MEDS: METOPROLOL TARTRATE 25 MG TABLET PO SCH ×2 (08:38→20:45)
[2017-03-11] MEDS: VANCOMYCIN IV 1 G in PREMIXED 0 EACH IV SCH (09:20)
[2017-03-11] MEDS ORDERED: POTASSIUM CHLORIDE 20 MEQ TAB.PRT.SR PO ONE (10:45)
--- NOTE | 2017-03-11 14:41 | NUR ---
Clinical pharmacy Note: Vancomycin Pharmacy to Dose Subjective: To continue vancomycin in this 81 y/o gentleman for indication of sepsis due to UTI Objective: height 182 cm weight 61 kg BUN 22 Scr 0.9 Wbc 7.1 temp 98.5 Assessment/Plan Renal function appears stable, Will continue 1gm q20hr for new expected trough of 15.04. Second dose was today at 1000. will order trough before 4th scheduled dose (not ordered yet). Will follow
[2017-03-11 19:00] VITALS: BP 116/50
--- NOTE | 2017-03-11 20:00 | NUR ---
RECEIVED PATIENT ASLEEP IN BED. HE IS RESTING AND CALM WITH NO EVIDENCE OF DISTRESS OR DISCOMFORT, NO AGITATION/RESTLESS AT THIS TIME. WILL CONTINUE TO MONITOR PATIENT
[2017-03-11 20:21] VITALS: BP 116/50
[2017-03-11] MEDS: ATORVASTATIN 40 MG TABLET PO SCH (20:45)
[2017-03-11] MEDS: NITROFURANTOIN/NITROFURAN MAC 100 MG CAPSULE PO SCH (20:47)
[2017-03-12] MEDS: QUETIAPINE FUMARATE 25 MG TABLET PO PRN (00:56)
--- NOTE | 2017-03-12 00:56 | NUR ---
PATIENT IS AGITATED AND RESTLESS TRYING TO GET OUT OF BED, SEROQUEL GIVEN PER MD ORDERS. CALM AND QUIET ENVIRONMENT PROVIDED WILL CONTINUE TO MONITOR PATIENT
--- NOTE | 2017-03-12 02:11 | NUR ---
SEROQUEL WITH EFFECT, PATIENT IS ASLEEP WITH NO AGITATION NOTED AT PRESENT. WILL CONTINUE TO MONITOR PATIENT
[2017-03-12 05:42] VITALS: BP 129/53
[2017-03-12] MEDS: VANCOMYCIN IV 1 G in PREMIXED 0 EACH IV SCH (05:48)
--- NOTE | 2017-03-12 07:35 | NUR ---
CLIENT ASLEEP IN SANJEEV CHAIR LISTENING TO MUSIC. SITTER IN THE ROOM. ONE ON ONE. NO SIGNS AND SYMPTOMS OF PAIN, DISTRESS OR DISCOMFORT.
[2017-03-12] MEDS: ASPIRIN 81 MG TAB.CHEW PO SCH (08:57)
[2017-03-12] MEDS: FINASTERIDE 5 MG TABLET PO SCH (08:57)
[2017-03-12] MEDS: ALFUZOSIN HCL 10 MG TAB.SR.24H PO SCH (08:57)
[2017-03-12] MEDS: CITALOPRAM 10 MG TABLET PO SCH (08:57)
[2017-03-12] MEDS: NITROFURANTOIN/NITROFURAN MAC 100 MG CAPSULE PO SCH ×2 (08:57→22:06)
--- NOTE | 2017-03-12 09:00 | NUR ---
CLIENT COMPLIANT WITH MEDICATION. CONTINUE TO SLEEP IN SANJEEV CHAIR COMFORTABLY LISTENING TO MUSIC.
[2017-03-12] MEDS: METOPROLOL TARTRATE 25 MG TABLET PO SCH ×2 (09:02→21:00)
[2017-03-12] MEDS: CLOPIDOGREL 75 MG TABLET PO SCH (09:36)
--- NOTE | 2017-03-12 11:30 | NUR ---
CLIENT IN BED RESTING, NO SIGNS AND SYMPTOMS OF PAIN, DISTRESS, DISCOMFORT OR SOB. SITTER BY BEDSIDE FOR SAFETY
[2017-03-12 12:00] VITALS: BP 110/77
--- NOTE | 2017-03-12 15:57 | NUR ---
Clinical pharmacy Note: Vancomycin Pharmacy to Dose Subjective: To continue vancomycin in this 81 y/o gentleman for indication of sepsis due to UTI Objective: height 182 cm weight 61 kg BUN 22 (03/11) Scr 0.9 (03/11) Wbc 7.1 (03/11) temp 98.5 Assessment/Plan Will continue 1gm q20hr for new expected trough of 15.04. Third dose was today at 0600. Trough due tomorrow at 0130. RN to hold if trough >20. Will check level tomorrow in am and adjust. Will continue to follow
[2017-03-12 16:00] VITALS: BP 101/58
--- NOTE | 2017-03-12 16:44 | NUR ---
CLIENT HAS BEEN MOVED FROM ROOM 208 TO ROOM 229. IS AWARE AND BY BEDSIDE
--- NOTE | 2017-03-12 17:40 | NUR ---
HOSPITAL'S LEARNING SOLUTIONS SPECIALIST DOCTOR SAW CLIENT WITH NEW ORDERS, XANAX 0.5MG PO A ROUTINE QHS. ORDERS HAVE BEEN PLACED
--- NOTE | 2017-03-12 19:30 | NUR ---
Pt in room alert with confusion. No acute distress noted. Maintaining contact isolation at this time. Denies any pain or discomfort. Sitter at bedside. 3 side rails raised. Continue to monitor.
--- NOTE | 2017-03-12 19:57 | NUR ---
LEFT AT THIS TIME. CLIENT IN BED AWAKE AND RESTING. SITTER AT BEDSIDE. NO SIGNS OF SYMPTOMS OF PAIN, DISTRESS, DISCOMFORT OR SOB. REPORT GIVEN TO OCCUPATIONAL THERAPY ASSISTANT
[2017-03-12 20:23] VITALS: BP 102/43
[2017-03-12] MEDS: ATORVASTATIN 40 MG TABLET PO SCH (22:06)
[2017-03-12] MEDS: ALPRAZOLAM 0.5 MG TABLET PO SCH (22:07)
[2017-03-13] MEDS: QUETIAPINE FUMARATE 25 MG TABLET PO PRN (00:39)
[2017-03-13] MEDS: VANCOMYCIN IV 1 G in PREMIXED 0 EACH IV SCH (02:00)
[2017-03-13 03:48] VITALS: BP 124/49
--- NOTE | 2017-03-13 05:00 | NUR ---
PT IN ROOM ASLEEP WITH NO INCREASED AGITATION NOTED. PT NOTED WITH SITTER. VANCOMYCIN HELD D/T AWAITING TROUGH LEVELS ORDERED. CONTINUE TO MONITOR.
--- NOTE | 2017-03-13 07:30 | NUR ---
RECEIVED CLIENT IN A SANJEEV-CHAIR SOUND ASLEEP. CLIENT HAS A 1:1 SITTER. NO APPARENT SIGNS AND SYMPTOMS OF SOB, PAIN, DISTRESS OR DISCOMFORT.
[2017-03-13 07:33] LABS: BASOPHILS % (AUTO) 0.6 % (0.0-2.0); EOSINOPHILS # (AUTO) 0.3 K/uL (0.0-0.7); EOSINOPHILS % (AUTO) 4.2 % (0.0-7.0); HEMATOCRIT 28.6 % (36.7-47.1); HEMOGLOBIN 9.6 g/dL (12.5-16.3); LYMPHOCYTES # (AUTO) 0.9 K/uL (20.0-40.0); LYMPHOCYTES % (AUTO) 12.6 % (20.5-51.5); MEAN CORPUSCULAR HEMOGLOBIN 30.5 uug (23.8-33.4); MEAN CORPUSCULAR HGB CONC 34 g/dL (32.5-36.3); MEAN CORPUSCULAR VOLUME 90.7 fL (73.0-96.2); MONOCYTES # (AUTO) 0.8 K/uL (2.0-10.0); MONOCYTES % (AUTO) 11.5 % (0.0-11.0); NEUTROPHILS # (AUTO) 5.2 K/uL (1.8-8.9); NEUTROPHILS % (AUTO) 71.1 % (38.5-71.5); PLATELET COUNT (AUTO) 250 K/uL (152-348); RED BLOOD CELL COUNT(AUTO) 3.15 MIL/uL (4.06-5.63); WHITE BLOOD COUNT (AUTO) 7.3 K/uL (3.6-10.2)
[2017-03-13 08:00] VITALS: BP 120/42
[2017-03-13 08:30] LABS: ALANINE AMINOTRANSFERASE 24 U/L (16-63); ALKALINE PHOSPHATASE 66 U/L (50-136); ASPARTATE AMINOTRANSFERASE 27 U/L (15-37); BILIRUBIN,TOTAL 0.5 mg/dL (0.2-1.0); CARBON DIOXIDE 24 mmol/L (21-32); CHLORIDE 105 mmol/L (98-107); CREATININE 0.8 mg/dL (0.6-1.3); GLUCOSE 91 mg/dL (74-106); MAGNESIUM 1.7 mg/dL (1.8-2.4); PHOSPHOROUS 2.9 mg/dL (2.5-4.9); POTASSIUM 3.4 mmol/L (3.5-5.1); TOTAL PROTEIN, SERUM 6.2 g/dL (6.4-8.2); UREA NITROGEN, BLOOD 20 mg/dL (7-18)
[2017-03-13] MEDS: FINASTERIDE 5 MG TABLET PO SCH (08:56)
[2017-03-13] MEDS: CLOPIDOGREL 75 MG TABLET PO SCH (08:56)
[2017-03-13] MEDS: ASPIRIN 81 MG TAB.CHEW PO SCH (08:56)
[2017-03-13] MEDS: CITALOPRAM 10 MG TABLET PO SCH (08:56)
[2017-03-13] MEDS: ALFUZOSIN HCL 10 MG TAB.SR.24H PO SCH (08:56)
[2017-03-13] MEDS: NITROFURANTOIN/NITROFURAN MAC 100 MG CAPSULE PO SCH ×3 (08:56→21:00)
--- NOTE | 2017-03-13 09:00 | NUR ---
CLIENT IN BED AWAKE, ALERT AND ORIENTED TIMES 2, LAYING SUPINE WITH THE HOB AT 30 DEGREES. COMPLIANT WITH MORNING MEDICATIONS. CLIENT KEEPS ASKING FOR HIS STATING HE HAS NOT SEEN HER IN WEEKS. 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 1:1 SITTER FOR SAFETY.
[2017-03-13] MEDS: METOPROLOL TARTRATE 25 MG TABLET PO SCH ×2 (09:01→20:24)
[2017-03-13] MEDS ORDERED: POTASSIUM CHLORIDE 10 MEQ CAPSULE.SA PO ONE (10:45)
--- NOTE | 2017-03-13 10:59 | NUR ---
AT BEDSIDE AND BROUGHT THE CLIENT ORACOAT XYLIMETS FOR DRY MOUTH. PHARMACY AWARE STATING TO BRING THEM DOWN TO PHARMACY AND GE AN ORDER FROM DOCTOR. IS AWARE OF PHARMACY REQUEST, SHE STATES SHE WILL HOLD ON TO THE ORACOAT XYLIMETS AND ASK THE DOCTOR IF IT IS OK TO GIVE.
--- NOTE | 2017-03-13 13:38 | NUR ---
SEEN BY UROLOGIST WITH NEW ORDERS TO D/C KIM CATHETER. PLACE A URINAL BY BEDSIDE AND CHART URINE OUTPUT AND BLADDER SCAN STARTING AT 1800 HRS FOLLOW BY BLADDER SCAN EVERY 12 HOURS. IS AT BEDSIDE, DOCTOR INFORMED THAT CLIENT WILL NOT BE DISCHARGED TODAY.
--- NOTE | 2017-03-13 14:12 | NUR ---
KIM CATHETER D/C PER UROLOGIST ORDERS. 400 MLS REMOVED FROM CATHETER. URINAL PLACED BY BEDSIDE. CLIENT TOLERATED PROCEDURE WELL. NO COMPLIANT OF PAIN OR DISCOMFORT. BY BEDSIDE WITH THE PERMISSION OF THE CLIENT
[2017-03-13] MEDS ORDERED: MAGNESIUM OXIDE 400 MG TABLET PO ONE (14:45)
[2017-03-13 16:00] VITALS: BP 103/36
--- NOTE | 2017-03-13 18:10 | NUR ---
Bladder scan done as ordered, result were 271 ml noted
--- NOTE | 2017-03-13 19:30 | NUR ---
PT IN ROOM IN NO ACUTE DISTRESS. CONTINUES REDIRECTION AND REORIENTATION. PT SEATED IN GERICHAIR. CONTINUE TO MONITOR FOR ANY S/S OF AGITATION. NO SIGNS OF DISTENDED BLADDER. PT REMINDED TO USE URINAL WHEN NEEDING TO VOID. SITTER AT BEDSIDE.
[2017-03-13] MEDS: ALPRAZOLAM 0.5 MG TABLET PO SCH ×2 (20:53→21:00)
[2017-03-13] MEDS: ATORVASTATIN 40 MG TABLET PO SCH (21:00)
--- NOTE | 2017-03-13 22:20 | NUR ---
PT NOTED WITH INCREASED CONFUSION AND AGITATION TOWARDS SITTER. DR DAVIS WAS NOTIFED THAT PT WAS NON COMPLIANT WITH HS ROUTINE PO MEDICATIONS. ORDERED ATIVAN 1M IVP ONCE. NOTED AND CARRIED OUT. CONTINUE TO MONITOR.
[2017-03-13] MEDS ORDERED: LORAZEPAM 2 MG/1 ML VIAL IV PRN (22:30)
[2017-03-13] MEDS ORDERED: LORAZEPAM 2 MG/1 ML VIAL ONE (22:40)
--- NOTE | 2017-03-14 01:48 | NUR ---
SKIN TEARS NOTED TO RIGHT LOWER ANTEIOR FOOT 0.5CM X 0.5CM AND LEFT FOREARM 0.3 X 0.3CM AND RIGHT HAND 0.5CM X 0.5CM. PT CONTINUES TO BE NOTED WITH AGITATION AND REFUSES TO HAVE PCITURES TAKEN. SITE WAS CLEANSED WITH NS, AND WRAPPED WITH DSD. CONTINUE TO MONITOR.
[2017-03-14] MEDS: ACETAMINOPHEN 325 MG TABLET PO PRN (04:24)
--- NOTE | 2017-03-14 04:30 | NUR ---
PT REFUSING ROUTINE V/S AT THIS TIME AND NON COMPLIANT. CONTINUE TO MONITOR.
--- NOTE | 2017-03-14 06:00 | NUR ---
PT ABLE TO SLEEP IN GERICHAIR AT THIS TIME. BLADDER SCAN NOTED 239ML AND NOTED WITH 2 VOIDS SINCE MIDNIGHT. NO C/O ABDOMINAL PAIN OR DISTENTION NOTED. CONTINUE TO MONITOR. MULTIPLE SKIN ABRASIONS WERE COVERED TO UPPER AND LOWER EXTREMITIES. PT AGITATED AND UNABLE TO TAKE PICTURES WHEN ATTEMPTED. CONTINUE TO MONITOR.
--- NOTE | 2017-03-14 07:10 | NUR ---
RECEIVED CLIENT SLEEPING IN A SAJNEEV-CHAIR. 1:1 SITTER FOR SAFETY. NO APPARENT SIGNS AND SYMPTOMS OF PAIN, SOB, DISTRESS OR DISCOMFORT
[2017-03-14 07:26] LABS: CARBON DIOXIDE 24 mmol/L (21-32); CHLORIDE 108 mmol/L (98-107); GLUCOSE 85 mg/dL (74-106); MAGNESIUM 1.7 mg/dL (1.8-2.4); POTASSIUM 3.9 mmol/L (3.5-5.1); UREA NITROGEN, BLOOD 27 mg/dL (7-18)
[2017-03-14 08:00] VITALS: BP 118/76
--- NOTE | 2017-03-14 08:10 | NUR ---
RECEIVED CALL FROM UROLOGIST, ENDORSED TO HIM ABOUT LAST NIGHT'S REPORT: CLIENT VOIDED TWICE IN A DIAPER, UNABLE TO USE URINAL. DOCTOR STATED IT WOULD BE OK TO DISCHARGE TODAY
[2017-03-14] MEDS: CLOPIDOGREL 75 MG TABLET PO SCH (09:33)
[2017-03-14] MEDS: ALFUZOSIN HCL 10 MG TAB.SR.24H PO SCH (09:33)
[2017-03-14] MEDS: ASPIRIN 81 MG TAB.CHEW PO SCH (09:34)
[2017-03-14] MEDS: FINASTERIDE 5 MG TABLET PO SCH (09:34)
[2017-03-14] MEDS: NITROFURANTOIN/NITROFURAN MAC 100 MG CAPSULE PO SCH (09:34)
[2017-03-14] MEDS: CITALOPRAM 10 MG TABLET PO SCH (09:34)
[2017-03-14] MEDS: METOPROLOL TARTRATE 25 MG TABLET PO SCH (09:35)
[2017-03-14] MEDS ORDERED: MAGNESIUM OXIDE 400 MG TABLET PO ONE (11:15)
[2017-03-14 12:00] VITALS: BP 96/41
--- NOTE | 2017-03-14 14:39 | NUR ---
BLADDER SCAN DONE AT BEDSIDE WITH UROLOGIST IN THE ROOM. DOCTOR STATED IT WAS OKAY TO BE DISCHARGE
[2017-03-14 16:00] VITALS: BP 107/53
[2017-03-14] MEDS ORDERED: ALFU10TA PO (19:22)
[2017-03-14] MEDS ORDERED: MULT1TAB73 PO (19:22)
[2017-03-14] MEDS ORDERED: NITR100C11 PO (19:22)
[2017-03-14] MEDS ORDERED: QUET25TA PO ×2 (19:22)
[2017-03-14] MEDS ORDERED: CLOP75TA15 PO (19:22)
[2017-03-14] MEDS ORDERED: HYDR-3326 PO (19:22)
[2017-03-14] MEDS ORDERED: ALPR0.5T PO (19:22)
[2017-03-14] MEDS ORDERED: MENT71OI TOP (19:22)
[2017-03-14] MEDS ORDERED: ACET325T53 PO (19:22)
--- NOTE | 2017-03-14 19:28 | NUR ---
CLIENT IN BED SLEEPING IN A SUPINE POSITION. IS AT BED SIDE. PENDING FINALIZED DISCHARGE ORDER FROM DOCTOR.
--- NOTE | 2017-03-14 20:50 | NUR ---
PATIENT DISCHARGE TO [facility] USER EXPERIENCE MANAGER BY AMBULANCE ACCOMPANIED BY , REPORT GIVEN TO WILFREDO HARRIS . PATIENT CELLPHONE WAS WITH THE . SO INVENTORY STATE THAT NO CELL PHONE. TOOK ALL HIS BELONGINGS.
== END 2017-03-14 20:54 | DRG 871 ==
LOC: ER 13:53 → TELE 17:57 → MED 03-09 13:30
PROVIDERS: ADMIT Nurse Practitioner Acute Care; ATTEND Nurse Practitioner Acute Care
DX: A41.9 Sepsis, unspecified organism (principal); N17.0 Acute kidney failure with tubular necrosis; I21.A1 Myocardial infarction type 2; E43 Unspecified severe protein-calorie malnutrition; G92 Toxic encephalopathy; D68.59 Other primary thrombophilia; I50.33 Acute on chronic diastolic (congestive) heart failure; R13.10 Dysphagia, unspecified; D63.8 Anemia in other chronic diseases classified elsewhere; N39.0 Urinary tract infection, site not specified; Z68.1 Body mass index [BMI] 19.9 or less, adult; W18.30XA Fall on same level, unspecified, initial encounter; G30.9 Alzheimer's disease, unspecified; F02.80 Dementia in other diseases classified elsewhere, unspecified severity, without behavioral disturbance, psychotic disturbance, mood disturbance, and anxiety; Z66 Do not resuscitate; I11.0 Hypertensive heart disease with heart failure; I67.2 Cerebral atherosclerosis; I73.9 Peripheral vascular disease, unspecified; R65.20 Severe sepsis without septic shock; B95.62 Methicillin resistant Staphylococcus aureus infection as the cause of diseases classified elsewhere; B95.2 Enterococcus as the cause of diseases classified elsewhere; S40.011A Contusion of right shoulder, initial encounter; S20.211A Contusion of right front wall of thorax, initial encounter; Y92.009 Unspecified place in unspecified non-institutional (private) residence as the place of occurrence of the external cause; Z96.643 Presence of artificial hip joint, bilateral; Z85.810 Personal history of malignant neoplasm of tongue; E78.5 Hyperlipidemia, unspecified; Z79.82 Long term (current) use of aspirin; Z79.899 Other long term (current) drug therapy; R29.6 Repeated falls; M50.31 Other cervical disc degeneration, high cervical region; M25.78 Osteophyte, vertebrae; F41.9 Anxiety disorder, unspecified; E87.6 Hypokalemia; E03.9 Hypothyroidism, unspecified; I25.10 Atherosclerotic heart disease of native coronary artery without angina pectoris; Z87.440 Personal history of urinary (tract) infections; Z74.09 Other reduced mobility; T14.8XXA Other injury of unspecified body region, initial encounter; N40.1 Benign prostatic hyperplasia with lower urinary tract symptoms; R33.8 Other retention of urine; R31.0 Gross hematuria; I35.1 Nonrheumatic aortic (valve) insufficiency
CPT/HCPCS: 36415; 70030-TC; 70450; 71010; 72125; 82378; 83550; 83605; 83690; 83735; 83970; 84100; 84153; 84155; 84156; 84165; 84300; 84403; 84443; 85025; 85730; 87040; 87077; 87086; 93005; 93307; 97116; 97530; A4217; A4663; C1758; G0480; G0480-TC; J1650; J2060; J2405; J2543; J3370; J3475; J7030; J7050

== ENCOUNTER 2017-10-01 11:35 | Emergency (ER) | payer MEDICARE, BC ==
[~2017-10-01] VITALS: Ht 177.8 cm; Wt 56.7 kg
[~2017-10-01 11:35] MED LIST changes: +ACET325T53 PO; +ALFU10TA PO; +ALPR0.5T PO; +CLOP75TA15 PO; +HYDR-3326 PO; -HYDR-3976 PO; +MENT71OI TOP; +MULT1TAB73 PO; +NITR100C11 PO; +QUET25TA PO
--- NOTE | 2017-10-01 12:35 | NUR ---
Dr James at the bedside for MSE.
[2017-10-01] MEDS ORDERED: NEOMY/BACITRA/POLYMYXIN B OINT UD PACKET TP ONE ×2 (12:59→13:00)
--- NOTE | 2017-10-01 13:27 | NUR ---
Patient discharged to home in stable conditon. Written and verbal after care instructions given. Patient verbalizes understanding of instructions. Pt left ER w/ steady gait accompained by .
[2017-10-01 13:28] VITALS: BP 129/52
== END 2017-10-01 13:29 | disposition home or self-care (01) ==
LOC: ER 11:35
DX: S61.412A Laceration without foreign body of left hand, initial encounter (principal); S61.512A Laceration without foreign body of left wrist, initial encounter; S41.012A Laceration without foreign body of left shoulder, initial encounter; E78.5 Hyperlipidemia, unspecified; Z79.891 Long term (current) use of opiate analgesic; Z79.01 Long term (current) use of anticoagulants; Z79.82 Long term (current) use of aspirin; Z79.899 Other long term (current) drug therapy; W18.30XA Fall on same level, unspecified, initial encounter; Y93.89 Activity, other specified; Y92.89 Other specified places as the place of occurrence of the external cause; Y99.8 Other external cause status
CPT/HCPCS: 99283; A4217; A4663

== ENCOUNTER 2017-12-13 22:44 | Inpatient (IN) | payer MEDICARE, BC ==
[~2017-12-13] VITALS: Ht 177.8 cm; Wt 58.1 kg
--- NOTE | 2017-12-13 23:05 | NUR ---
MD DUENAS AT BEDSIDE FOR MSE
--- NOTE | 2017-12-13 23:35 | NUR ---
PT IN ROUTE TO CT IN [place] W/ TRANSPORTER
[2017-12-13 23:37] LABS: LYMPHOCYTES % (AUTO) 14.9 % (20.5-51.5)
[2017-12-13 23:44] LABS: BASOPHILS % (AUTO) 0.4 % (0.0-2.0); EOSINOPHILS # (AUTO) 0.1 K/uL (0.0-0.7); EOSINOPHILS % (AUTO) 0.8 % (0.0-7.0); HEMATOCRIT 33.5 % (36.7-47.1); HEMOGLOBIN 11.8 g/dL (12.5-16.3); MEAN CORPUSCULAR HEMOGLOBIN 33.1 uug (23.8-33.4); MEAN CORPUSCULAR HGB CONC 35 g/dL (32.5-36.3); MEAN CORPUSCULAR VOLUME 94.4 fL (73.0-96.2); MONOCYTES # (AUTO) 0.6 K/uL (2.0-10.0); MONOCYTES % (AUTO) 9.3 % (0.0-11.0); NEUTROPHILS # (AUTO) 5.1 K/uL (1.8-8.9); NEUTROPHILS % (AUTO) 74.6 % (38.5-71.5); PLATELET COUNT (AUTO) 165 K/uL (152-348); RED BLOOD CELL COUNT(AUTO) 3.56 MIL/uL (4.06-5.63); WHITE BLOOD COUNT (AUTO) 6.8 K/uL (3.6-10.2)
[2017-12-13 23:47] LABS: ALANINE AMINOTRANSFERASE 26 U/L (16-63); ALKALINE PHOSPHATASE 94 U/L (50-136); ASPARTATE AMINOTRANSFERASE 35 U/L (15-37); BILIRUBIN,DIRECT 0.3 mg/dL (0.0-0.2); BILIRUBIN,TOTAL 0.7 mg/dL (0.2-1.0); CARBON DIOXIDE 23 mmol/L (21-32); CHLORIDE 101 mmol/L (98-107); GLUCOSE 94 mg/dL (74-106); POTASSIUM 3.4 mmol/L (3.5-5.1); TOTAL PROTEIN, SERUM 7.3 g/dL (6.4-8.2); UREA NITROGEN, BLOOD 26 mg/dL (7-18)
[2017-12-14] MEDS ORDERED: IV NORMAL SALINE 500 ML BAG IV ONE (00:15)
--- NOTE | 2017-12-14 01:02 | NUR ---
PT IN BED RESTING QUIETLY WITH EYES CLOSED. PT IS EASILY ARROUSABLE TO VOICE. PT IS AAOX1. PT IS CALM AND COOPERATIVE. NO SIGNS OF DISTRESS WITNESSED AT THIS TIME.
[2017-12-14 01:07] LABS: *BILIRUBIN,URIN NEGATIVE (NEGATIVE); *BLOOD, URINE 2+ (NEGATIVE); *CLARITY,URINE SLIGHTLY CLOUDY (CLEAR); *COLOR,URINE YELLOW (YELLOW); *KETONES,URINE 1+ (NEGATIVE); *PROTEIN,URINE 1+ (NEGATIVE); *UROBILINOGEN,URINE 0.2 E.U./dl (NORMAL); LEUKOCYTE ESTERASE ,URINE 1+ (NEGATIVE); NITRITE, URINE NEGATIVE (NEGATIVE); PH,URINE 5.5 (5.0-8.0); UGLUCOSE NEGATIVE (NEGATIVE)
[2017-12-14 01:17] LABS: BACTERIA,URINE FEW /HPF (NONE SEEN); MUCUS,URINE FEW /LPF (0-FEW); RBC,URINE 20-50 /HPF (0-3); SQUAMOUS EPITHELIAL CELL,UR FEW /HPF (NONE SEEN); WBC,URINE 50-80 /HPF (0-3); YEAST,URINE BUDDING YEAST /HPF (NONE SEEN)
[2017-12-14] MEDS ORDERED: CEFTRIAXONE 1 G VIAL ONE (01:23)
[2017-12-14] MEDS ORDERED: ONDANSETRON 4 MG/2 ML VIAL IV PRN (01:30)
[2017-12-14] MEDS ORDERED: MAGNESIUM HYDROXIDE 30 ML LIQUID UDC PO PRN (01:30)
[2017-12-14] MEDS ORDERED: CEFTRIAXONE 1 G in IV DEXTROSE 5% 50 ML IV ONE (01:30)
--- NOTE | 2017-12-14 01:30 | NUR ---
REPORT GIVEN TO TELE NURSEALICIA
[2017-12-14] MEDS ORDERED: CEFTRIAXONE 1 G in IV DEXTROSE 5% 50 ML IV SCH (02:00)
--- NOTE | 2017-12-14 02:00 | NUR ---
Pt. admitted to TELEMETRY, under care of Dr. LESTER Belongs List completed
[2017-12-14 02:10] VITALS: BP 151/51
--- NOTE | 2017-12-14 02:50 | NUR ---
RECEIVED PT FROM ER VIA [facility]. UNDER THE CARE OF DR. LESTER. DX: DEHYDRATION. PT SHOWS NO SIGNS OF DISTRESS. IV INTACT AND PATENT. HALFWAY ASSESSMENT DONE. SAFETY AND COMFORT PROVIDED. BELONGING LIST DONE. ADMISSION PROCESS AND CARE PLAN INITIATED. WILL CONTINUE TO MONITOR.
[2017-12-14] MEDS: IV NS 1000 ML 1,000 ML IV PRN ×2 (03:30→17:22)
[2017-12-14 04:00] VITALS: BP 117/51
[2017-12-14] MEDS: ACETAMINOPHEN 325 MG TABLET PO PRN (04:21)
--- NOTE | 2017-12-14 06:12 | NUR ---
PT SLEPT INTERMITTENTLY. PT TRYING TO GET OUT OF THE BED. PT CONFUSED. SAFETY AND COMFORT PROVIDED. IV INTACT AND PATENT. ALL NEEDS ARE MET. WILL ENDORSE ACCORDINGLY TO DAYSHIFT NURSE FOR CONTINUITY OF CARE.
--- NOTE | 2017-12-14 07:30 | NUR ---
PT.IN BED,STILL SLEEPY,DENIES ANY PAIN,NO S/S OF DISTRESS.
[2017-12-14] MEDS: ASPIRIN 81 MG TAB.CHEW PO SCH (10:56)
[2017-12-14] MEDS ORDERED: POTASSIUM CHLORIDE 10 MEQ, LIDOCAINE-MPF 1% 1 ML in IV DEXTROSE 5% 100 ML IV SCH (11:00)
[2017-12-14] MEDS ORDERED: POTASSIUM CHLORIDE 20 MEQ TAB.PRT.SR PO ONE (11:15)
[2017-12-14 11:52] VITALS: BP 131/55
--- NOTE | 2017-12-14 12:15 | NUR ---
PT.EATING LUNCH,WATCHING TV.
--- NOTE | 2017-12-14 13:30 | NUR ---
FAMILY MEMBERS AT BEDSIDE,UPDATED WITH PT.CONDITION AND PLAN OF CARE.
--- NOTE | 2017-12-14 15:47 | NUR ---
PT.WATCHING TV,NO S/S OF DISTRESS.
[2017-12-14 15:58] VITALS: BP 124/58
--- NOTE | 2017-12-14 17:30 | NUR ---
PT.WAS SEEN BY .
--- NOTE | 2017-12-14 19:30 | NUR ---
Received patient from day shift nurse. Patient in stable condition with no acute distress noted. A/Ox1-2 with periods of confusion & needs frequent reorienting. Sinus rhythm on tele monitor. at the bedside with the patient. Noted with right forearm 20G running with NS at 75cc/hr. No signs of infiltration at IV site. On ATB therapy for UTI. Bed in low position, locked, x2 side rails up. Bed alarm placed on. Call light in reach. Will continue to monitor.
[2017-12-14] MEDS: CIPROFLOXACIN HCL 250 MG TABLET PO SCH (20:12)
[2017-12-14 20:15] VITALS: BP 150/66
--- NOTE | 2017-12-14 21:10 | NUR ---
Patient noted to be agitated, restless, non compliant, & confused. Attempting to get out of bed on his own & pull out his IV. Spoke with inbound call center representative BRICK SHADER Iman Lyle with new order for 1:1 sitter for safety & one time dose of seroquel 25mg PO. Will carry out order & continue to monitor.
[2017-12-14] MEDS ORDERED: QUETIAPINE FUMARATE 25 MG TABLET PO ONE (21:30)
[2017-12-15 00:05] VITALS: BP 133/66
[2017-12-15] MEDS: IV NS 1000 ML 1,000 ML IV PRN ×2 (05:43→20:58)
[2017-12-15 06:08] LABS: BASOPHILS % (AUTO) 0.4 % (0.0-2.0); EOSINOPHILS # (AUTO) 0.2 K/uL (0.0-0.7); EOSINOPHILS % (AUTO) 4.7 % (0.0-7.0); HEMATOCRIT 29.8 % (36.7-47.1); HEMOGLOBIN 10.3 g/dL (12.5-16.3); LYMPHOCYTES # (AUTO) 0.7 K/uL (20.0-40.0); LYMPHOCYTES % (AUTO) 12.9 % (20.5-51.5); MEAN CORPUSCULAR HEMOGLOBIN 32.2 uug (23.8-33.4); MEAN CORPUSCULAR HGB CONC 34 g/dL (32.5-36.3); MEAN CORPUSCULAR VOLUME 93.8 fL (73.0-96.2); MONOCYTES # (AUTO) 0.4 K/uL (2.0-10.0); NEUTROPHILS # (AUTO) 3.7 K/uL (1.8-8.9); PLATELET COUNT (AUTO) 131 K/uL (152-348); RED BLOOD CELL COUNT(AUTO) 3.18 MIL/uL (4.06-5.63); WHITE BLOOD COUNT (AUTO) 5.1 K/uL (3.6-10.2)
[2017-12-15 06:17] LABS: ALANINE AMINOTRANSFERASE 17 U/L (16-63); ALKALINE PHOSPHATASE 73 U/L (50-136); ASPARTATE AMINOTRANSFERASE 25 U/L (15-37); BILIRUBIN,TOTAL 0.8 mg/dL (0.2-1.0); CARBON DIOXIDE 20 mmol/L (21-32); CHLORIDE 107 mmol/L (98-107); CHOLESTEROL 95 mg/dL (<200); CREATININE 0.8 mg/dL (0.6-1.3); GLUCOSE 81 mg/dL (74-106); HDL CHOLESTEROL 33 mg/dL (40-60); MAGNESIUM 1.5 mg/dL (1.8-2.4); PHOSPHOROUS 2.8 mg/dL (2.5-4.9); POTASSIUM 3.2 mmol/L (3.5-5.1); TOTAL PROTEIN, SERUM 5.7 g/dL (6.4-8.2); TRIGLYCERIDES 27 MG/DL (30-150); UREA NITROGEN, BLOOD 12 mg/dL (7-18)
--- NOTE | 2017-12-15 06:28 | NUR ---
Patient slept intermittently through the night. Continues to have periods of restlessness, confusion, & gets easily agitated. 1:1 sitter at bedside for safety. Vital signs within range. Medications administered per MD order. Sinus rhythm on tele monitor with frequent PVC's. All needs attended to. Kept clean & dry, changed per diaper soiling. Safety measures implemented. Will endorse to day shift nurse.
[2017-12-15 06:55] VITALS: BP 160/64
--- NOTE | 2017-12-15 07:30 | NUR ---
on bed, resting . anxious, trying to get oob per self. voided urinal due to difficulty walking steady. food encourage
[2017-12-15] MEDS ORDERED: CEFTRIAXONE 1 G in IV DEXTROSE 5% 50 ML IV SCH (09:00)
[2017-12-15] MEDS: ASPIRIN 81 MG TAB.CHEW PO SCH (09:36)
[2017-12-15] MEDS: CIPROFLOXACIN HCL 250 MG TABLET PO SCH (09:38)
--- NOTE | 2017-12-15 11:00 | NUR ---
in ,supportive of patient care. able to encourage patient to have more fluid and to eat later.
[2017-12-15] MEDS ORDERED: DEXTROSE 50% 50 ML DISP.SYRIN IV PRN (11:45)
[2017-12-15] MEDS: BLOOD SUGAR DIAGNOSTIC 1 EACH STRIP VI SCH ×3 (12:17→20:57)
[2017-12-15] MEDS ORDERED: POTASSIUM CHLORIDE 20 MEQ TAB.PRT.SR PO ONE (15:00)
--- NOTE | 2017-12-15 15:00 | NUR ---
med supplement given as requested.
[2017-12-15] MEDS: MAGNESIUM SULFATE/D5W 100 ML IV SCH ×2 (15:04→16:08)
[2017-12-15 15:30] VITALS: BP 142/65
--- NOTE | 2017-12-15 17:45 | NUR ---
patient resting well. no outburst noted, needed prn reminder of plan of care, need to eat , drink and take meds
--- NOTE | 2017-12-15 18:04 | NUR ---
seen by dr Brown,aware of patient status, cipro change to iv as of tonight. voiding well, x 1 blood clot with urination.
--- NOTE | 2017-12-15 18:18 | NUR ---
back, aware seen by dr Brown, appreciative of follow up
[2017-12-15 19:31] VITALS: BP 133/66
--- NOTE | 2017-12-15 19:45 | NUR ---
RECEIVED IN BED ALERT BUT FORGETFUL, NO SOB NO CHEST PAIN NOTED, TELE SINUS RYTHM WITH PVC, NO COMPLAIN OF PAIN AT THIS TIME. ON 1 SITTER FOR SAFETY, TURN AND REPOSITION EVERY TWO HOURS, CALL LIGHT WITHIN REACH.
[2017-12-15] MEDS: CIPROFLOXACIN IV 400 MG in PREMIXED 1 EACH IV SCH (20:28)
[2017-12-15] MEDS: HYDROCODONE/APAP 5-325MG TABLET PO PRN (20:28)
[2017-12-15] MEDS ORDERED: QUETIAPINE FUMARATE 25 MG TABLET PO PRN (22:00)
[2017-12-16] VITALS (12 sets, daily range): BP systolic 76–151; BP diastolic 37–70
[2017-12-16] MEDS: ACETAMINOPHEN 325 MG TABLET PO PRN (05:43)
[2017-12-16] MEDS: BLOOD SUGAR DIAGNOSTIC 1 EACH STRIP VI SCH ×4 (06:07→21:38)
[2017-12-16 06:42] LABS: BASOPHILS % (AUTO) 0.4 % (0.0-2.0); EOSINOPHILS # (AUTO) 0.3 K/uL (0.0-0.7); EOSINOPHILS % (AUTO) 4.7 % (0.0-7.0); HEMATOCRIT 31.1 % (36.7-47.1); HEMOGLOBIN 10.9 g/dL (12.5-16.3); LYMPHOCYTES # (AUTO) 0.8 K/uL (20.0-40.0); MEAN CORPUSCULAR HEMOGLOBIN 32.2 uug (23.8-33.4); MEAN CORPUSCULAR HGB CONC 35 g/dL (32.5-36.3); MEAN CORPUSCULAR VOLUME 91.6 fL (73.0-96.2); MONOCYTES # (AUTO) 0.6 K/uL (2.0-10.0); NEUTROPHILS # (AUTO) 4.5 K/uL (1.8-8.9); NEUTROPHILS % (AUTO) 72.9 % (38.5-71.5); PLATELET COUNT (AUTO) 146 K/uL (152-348); RED BLOOD CELL COUNT(AUTO) 3.39 MIL/uL (4.06-5.63); WHITE BLOOD COUNT (AUTO) 6.2 K/uL (3.6-10.2)
[2017-12-16 07:26] LABS: CARBON DIOXIDE 20 mmol/L (21-32); CHLORIDE 109 mmol/L (98-107); CREATININE 0.8 mg/dL (0.6-1.3); GLUCOSE 89 mg/dL (74-106); MAGNESIUM 1.7 mg/dL (1.8-2.4); PHOSPHOROUS 2.6 mg/dL (2.5-4.9); POTASSIUM 3.5 mmol/L (3.5-5.1); UREA NITROGEN, BLOOD 10 mg/dL (7-18)
[2017-12-16] MEDS: FINASTERIDE 5 MG TABLET PO SCH (08:46)
[2017-12-16] MEDS: MULTIVITAMINS,THERAPEUTIC TABLET PO SCH (08:46)
[2017-12-16] MEDS: CITALOPRAM 10 MG TABLET PO SCH (08:46)
[2017-12-16] MEDS: ASPIRIN 81 MG TAB.CHEW PO SCH (08:46)
[2017-12-16] MEDS: ALFUZOSIN HCL 10 MG TAB.SR.24H PO SCH (08:46)
[2017-12-16] MEDS: CIPROFLOXACIN IV 400 MG in PREMIXED 1 EACH IV SCH ×2 (08:47→21:55)
[2017-12-16] MEDS ORDERED: ASPIRIN 81 MG TAB.CHEW PO SCH (09:00)
[2017-12-16] MEDS: CLOPIDOGREL 75 MG TABLET PO SCH (09:58)
[2017-12-16] MEDS ORDERED: MAGNESIUM OXIDE 400 MG TABLET PO ONE (10:45)
[2017-12-16] MEDS: Z GUARD REMEDY PASTE 57 GM TUBE TOP PRN (11:31)
--- NOTE | 2017-12-16 12:10 | NUR ---
BP LOW, WILL MONITOR, FLUIDS GIVEN . DENIES PAIN OR DISCOMFORT, HR ELEVATED.
[2017-12-16] MEDS ORDERED: IV NORMAL SALINE 500 ML IV ONE (12:30)
[2017-12-16] MEDS ORDERED: FLUCONAZOLE 200 MG/NS 100ML IV 100 MG in PREMIXED 1 EACH IV SCH (12:30)
--- NOTE | 2017-12-16 12:30 | NUR ---
MONITORED FOR CONTINUED LOW BP, SEEN BY JOE BUNCH. MADE ORDER AND CARRIED OUT
--- NOTE | 2017-12-16 13:26 | NUR ---
IN , AT BEDSIDE, SUPPORTIVE OF PATIENT CARE. SPOKE WITH JOE BUNCH ABOUT PATIENT STATUS. SEE VITAL SIGNS IN CHART
[2017-12-16] MEDS ORDERED: MICAFUNGIN SODIUM 100 MG in IV NORMAL SALINE 100 ML IV SCH (15:00)
--- NOTE | 2017-12-16 16:00 | NUR ---
PATIENT TRANSFERRED TO [facility] TELE TD, REPORT GIVEN TO HOMER, RN. PATIENT COMFORTABLE, NO COMPLAINT OF CHEST PAIN OR DISCOMFORT. AND DAUGHTER AT BEDSIDE, AWARE OF CHANGES, APPRECIATIVE OF CARE. WILL CONTINUE MONITOR BP AND TELE
[2017-12-16] MEDS: QUETIAPINE FUMARATE 25 MG TABLET PO PRN (17:04)
[2017-12-16] MEDS ORDERED: POTASSIUM CHLORIDE 20 MEQ TAB.PRT.SR PO ONE (17:30)
[2017-12-16] MEDS: HYDROCODONE/APAP 5-325MG TABLET PO PRN (17:52)
--- NOTE | 2017-12-16 19:30 | NUR ---
PT A/A BUT CONFUSED, AT BS. NO DISTRESS NOTED OR VOICED.
[2017-12-16] MEDS ORDERED: ATORVASTATIN 40 MG TABLET PO SCH (21:00)
[2017-12-16] MEDS: IV NS 1000 ML 1,000 ML IV PRN (21:39)
--- NOTE | 2017-12-17 00:15 | NUR ---
INFORMED THAT PT HAD RUN 8 BEAT RUN OF V-TACH. NOTED PT HANDLING MONITOR BOX.WILL CONTINUE TO MONITOR.
[2017-12-17] MEDS: HYDROCODONE/APAP 5-325MG TABLET PO PRN (00:46)
[2017-12-17 05:15] VITALS: BP 135/53
[2017-12-17 06:36] LABS: CARBON DIOXIDE 21 mmol/L (21-32); CHLORIDE 108 mmol/L (98-107); CREATININE 0.8 mg/dL (0.6-1.3); GLUCOSE 92 mg/dL (74-106); MAGNESIUM 1.7 mg/dL (1.8-2.4); PHOSPHOROUS 2.9 mg/dL (2.5-4.9); UREA NITROGEN, BLOOD 13 mg/dL (7-18)
--- NOTE | 2017-12-17 07:00 | NUR ---
PT RESTLESS MOST OF NIGHT EVEN AFTER BEING GIVEN SEROQUEL. EASILY CALMED DOWN AFTER SPEAKING SOFTLY TO HIM.
[2017-12-17] MEDS: BLOOD SUGAR DIAGNOSTIC 1 EACH STRIP VI SCH ×4 (07:39→20:21)
[2017-12-17 07:45] LABS: BASOPHILS % (AUTO) 0.3 % (0.0-2.0); EOSINOPHILS # (AUTO) 0.2 K/uL (0.0-0.7); EOSINOPHILS % (AUTO) 4.5 % (0.0-7.0); LYMPHOCYTES # (AUTO) 0.7 K/uL (20.0-40.0); LYMPHOCYTES % (AUTO) 13.3 % (20.5-51.5); MEAN CORPUSCULAR HEMOGLOBIN 32.4 uug (23.8-33.4); MEAN CORPUSCULAR HGB CONC 35 g/dL (32.5-36.3); MEAN CORPUSCULAR VOLUME 93.8 fL (73.0-96.2); MONOCYTES # (AUTO) 0.6 K/uL (2.0-10.0); MONOCYTES % (AUTO) 10.9 % (0.0-11.0); NEUTROPHILS # (AUTO) 3.7 K/uL (1.8-8.9); PLATELET COUNT (AUTO) 135 K/uL (152-348); RED BLOOD CELL COUNT(AUTO) 2.88 MIL/uL (4.06-5.63); WHITE BLOOD COUNT (AUTO) 5.2 K/uL (3.6-10.2)
[2017-12-17 07:48] LABS: HEMOGLOBIN 9.3 g/dL (12.5-16.3)
--- NOTE | 2017-12-17 08:00 | NUR ---
1:1 sitter for safety at bedside. Plan of care implemented re: fall precaution, pain management. Call light is within reach.
[2017-12-17 08:30] VITALS: BP 111/54
[2017-12-17] MEDS: CITALOPRAM 10 MG TABLET PO SCH (08:46)
[2017-12-17] MEDS: FINASTERIDE 5 MG TABLET PO SCH (08:46)
[2017-12-17] MEDS: MULTIVITAMINS,THERAPEUTIC TABLET PO SCH (08:46)
[2017-12-17] MEDS: ASPIRIN 81 MG TAB.CHEW PO SCH (08:46)
[2017-12-17] MEDS: ALFUZOSIN HCL 10 MG TAB.SR.24H PO SCH (08:46)
[2017-12-17] MEDS: QUETIAPINE FUMARATE 25 MG TABLET PO PRN (08:53)
[2017-12-17] MEDS: CIPROFLOXACIN IV 400 MG in PREMIXED 1 EACH IV SCH (10:19)
[2017-12-17] MEDS: MAGNESIUM SULFATE/D5W 100 ML IV SCH ×2 (10:19→11:29)
[2017-12-17] MEDS: CLOPIDOGREL 75 MG TABLET PO SCH (10:19)
[2017-12-17] MEDS: METOPROLOL TARTRATE 25 MG TABLET PO SCH ×2 (11:50→20:25)
[2017-12-17 12:00] VITALS: BP 122/54
[2017-12-17 15:30] VITALS: BP 94/43
--- NOTE | 2017-12-17 19:30 | NUR ---
RECEIVED PT VERBALLY RESPONSIVE, FOLLOWS TO COMMAND, IV RESTARTED ON L HAND W/ #22 ANGIO ON IVF OF NS @ 75CC/HR. SITTER @ BEDSIDE AT ALL TIMES FOR PT. SAFETY. C-SCOPE SR. TEMP-99.9 ORALLY, TYLENOL 650MG GIVEN PO.
[2017-12-17 19:40] LABS: *BILIRUBIN,URIN NEGATIVE (NEGATIVE); *BLOOD, URINE Trace-lysed (NEGATIVE); *CLARITY,URINE CLEAR (CLEAR); *COLOR,URINE YELLOW (YELLOW); *KETONES,URINE NEGATIVE (NEGATIVE); *PROTEIN,URINE NEGATIVE (NEGATIVE); *UROBILINOGEN,URINE 0.2 E.U./dl (NORMAL); LEUKOCYTE ESTERASE ,URINE 3+ (NEGATIVE); NITRITE, URINE NEGATIVE (NEGATIVE); PH,URINE 7.5 (5.0-8.0); UGLUCOSE NEGATIVE (NEGATIVE)
[2017-12-17 20:00] VITALS: BP 121/48
[2017-12-17 20:14] LABS: BACTERIA,URINE FEW /HPF (NONE SEEN); SQUAMOUS EPITHELIAL CELL,UR FEW /HPF (NONE SEEN)
[2017-12-17] MEDS: ACETAMINOPHEN 325 MG TABLET PO PRN (20:22)
[2017-12-17] MEDS: CIPROFLOXACIN HCL 250 MG TABLET PO SCH (20:23)
--- NOTE | 2017-12-17 21:00 | NUR ---
REPORT GIVEN TO DENAE HARRIS FOR CONTINUITY OF CARE.
[2017-12-18] VITALS: BP 115/49
--- NOTE | 2017-12-18 02:00 | NUR ---
PT. IS CONFUSED & DISORIENTED SLEPT @ SHORT INTERVAL. NOT IN ANY DISTRESS.
[2017-12-18] MEDS: QUETIAPINE FUMARATE 25 MG TABLET PO PRN ×3 (02:57→12:06)
--- NOTE | 2017-12-18 07:30 | NUR ---
report received from Jasmyne HARRIS. 82 yr old socrates was admitted on 12/14/17 for dehydration. ROBERT status. patient confused. has 1 24 hr 1:1 sitter. IV fluid NS infusing at 75ml/hr via left #22 Addendum: 12/18/17 at 1055 by SOPHIA ARROYO RN Amended: Links added.
[2017-12-18 07:33] LABS: BASOPHILS % (AUTO) 0.3 % (0.0-2.0); EOSINOPHILS # (AUTO) 0.2 K/uL (0.0-0.7); EOSINOPHILS % (AUTO) 3.9 % (0.0-7.0); HEMATOCRIT 29.4 % (36.7-47.1); LYMPHOCYTES # (AUTO) 0.8 K/uL (20.0-40.0); LYMPHOCYTES % (AUTO) 12.6 % (20.5-51.5); MEAN CORPUSCULAR HEMOGLOBIN 31.9 uug (23.8-33.4); MEAN CORPUSCULAR HGB CONC 34 g/dL (32.5-36.3); MEAN CORPUSCULAR VOLUME 93.8 fL (73.0-96.2); MONOCYTES # (AUTO) 0.6 K/uL (2.0-10.0); MONOCYTES % (AUTO) 9.5 % (0.0-11.0); NEUTROPHILS # (AUTO) 4.4 K/uL (1.8-8.9); NEUTROPHILS % (AUTO) 73.7 % (38.5-71.5); PLATELET COUNT (AUTO) 168 K/uL (152-348); RED BLOOD CELL COUNT(AUTO) 3.13 MIL/uL (4.06-5.63)
[2017-12-18 07:40] LABS: CARBON DIOXIDE 21 mmol/L (21-32); CHLORIDE 108 mmol/L (98-107); CREATININE 0.8 mg/dL (0.6-1.3); GLUCOSE 82 mg/dL (74-106); MAGNESIUM 1.8 mg/dL (1.8-2.4); PHOSPHOROUS 3.2 mg/dL (2.5-4.9); POTASSIUM 3.9 mmol/L (3.5-5.1); UREA NITROGEN, BLOOD 13 mg/dL (7-18)
--- NOTE | 2017-12-18 07:45 | NUR ---
KRISTI VARGAS BS 86, NO COVERAGE Addendum: 12/18/17 at 0809 by SOPHIA ARROYO RN Amended: Links added.
[2017-12-18] MEDS: BLOOD SUGAR DIAGNOSTIC 1 EACH STRIP VI SCH ×4 (08:07→21:25)
[2017-12-18] MEDS: ASPIRIN 81 MG TAB.CHEW PO SCH (08:51)
[2017-12-18] MEDS: FINASTERIDE 5 MG TABLET PO SCH (08:52)
[2017-12-18] MEDS: CLOPIDOGREL 75 MG TABLET PO SCH (08:52)
[2017-12-18] MEDS: ALFUZOSIN HCL 10 MG TAB.SR.24H PO SCH (08:52)
[2017-12-18] MEDS: MULTIVITAMINS,THERAPEUTIC TABLET PO SCH (08:52)
[2017-12-18] MEDS: CITALOPRAM 10 MG TABLET PO SCH (08:52)
[2017-12-18] MEDS: CIPROFLOXACIN HCL 250 MG TABLET PO SCH ×2 (08:53→20:21)
[2017-12-18] MEDS: METOPROLOL TARTRATE 25 MG TABLET PO SCH ×2 (08:58→20:21)
[2017-12-18] MEDS: IV NS 1000 ML 1,000 ML IV PRN ×2 (09:09→15:30)
[2017-12-18 10:51] VITALS: BP 136/53
--- NOTE | 2017-12-18 11:26 | NUR ---
KRISTI 86, NO INSULIN COVERAGE. Addendum: 12/18/17 at 1126 by SOPHIA ARROYO RN Amended: Links added.
--- NOTE | 2017-12-18 11:30 | NUR ---
ambulated with PT. desaturated down to 88% whith activity. back to bed. o2 at 2l nc Addendum: 12/18/17 at 1250 by SOPHIA ARROYO RN Amended: Links added. Addendum: 12/18/17 at 1251 by SOPHIA ARROYO RN Amended: Links added. Addendum: 12/18/17 at 1253 by SOPHIA ARROOY RN Amended: Links added.
--- NOTE | 2017-12-18 12:51 | NUR ---
medicated with seroquel for increased agitation Addendum: 12/18/17 at 1251 by SOPHIA ARROYO RN Amended: Vanessa added. Addendum: 12/18/17 at 1253 by SOPHIA ARROYO RN Amended: Vanessa added.
--- NOTE | 2017-12-18 12:52 | NUR ---
seen by JOE Gotti Addendum: 12/18/17 at 1253 by SOPHIA ARROYO RN Amended: Links added.
--- NOTE | 2017-12-18 13:35 | NUR ---
nilda Mayers Telemetry status Addendum: 12/18/17 at 1335 by SOPHIA ARROYO RN Amended: Links added.
--- NOTE | 2017-12-18 15:02 | NUR ---
PATIENT HIGHLY AGITATED. AMBULATED ALL THE WAY [facility] DESPITE PRESENCE OF THE SITTER.assisted back to room Addendum: 12/18/17 at 1503 by SOPHIA ARROYO RN Amended: Links added.
[2017-12-18] MEDS: LORAZEPAM 2 MG/1 ML VIAL IV PRN ×2 (15:45→23:10)
--- NOTE | 2017-12-18 15:45 | NUR ---
medicated with ativan 1 mg IV for agitation. lynn ryan was called to assist patient back to bed. Addendum: 12/18/17 at 1557 by SOPHIA ARROYO RN Amended: Links added.
[2017-12-18 16:00] VITALS: BP 129/50
--- NOTE | 2017-12-18 16:06 | NUR ---
anisa 89, no coverage Addendum: 12/18/17 at 1606 by SOPHIA ARROYO RN Amended: Links added.
--- NOTE | 2017-12-18 16:11 | NUR ---
charge nurse Indira left message to Dr Louise Pompa to see patient. Addendum: 12/18/17 at 1612 by SOPHIA ARROYO RN Amended: Links added.
--- NOTE | 2017-12-18 19:27 | NUR ---
report given to Riky RN Addendum: 12/18/17 at 1927 by SOPHIA ARROYO RN Amended: Links added.
[2017-12-18 20:00] VITALS: BP 121/48
[2017-12-18] MEDS: ACETAMINOPHEN 325 MG TABLET PO PRN (20:22)
[2017-12-18] MEDS: Z GUARD REMEDY PASTE 57 GM TUBE TOP PRN (20:22)
[2017-12-18 23:50] VITALS: BP 149/79
[2017-12-19 04:00] VITALS: BP 150/78
[2017-12-19] MEDS: IV NS 1000 ML 1,000 ML IV PRN (05:46)
[2017-12-19 07:03] LABS: BASOPHILS % (AUTO) 0.4 % (0.0-2.0); EOSINOPHILS # (AUTO) 0.3 K/uL (0.0-0.7); EOSINOPHILS % (AUTO) 3.6 % (0.0-7.0); HEMATOCRIT 29.1 % (36.7-47.1); LYMPHOCYTES # (AUTO) 0.9 K/uL (20.0-40.0); LYMPHOCYTES % (AUTO) 12.1 % (20.5-51.5); MEAN CORPUSCULAR HEMOGLOBIN 32.3 uug (23.8-33.4); MEAN CORPUSCULAR HGB CONC 34 g/dL (32.5-36.3); MEAN CORPUSCULAR VOLUME 93.9 fL (73.0-96.2); MONOCYTES # (AUTO) 0.7 K/uL (2.0-10.0); MONOCYTES % (AUTO) 9.6 % (0.0-11.0); NEUTROPHILS # (AUTO) 5.5 K/uL (1.8-8.9); NEUTROPHILS % (AUTO) 74.3 % (38.5-71.5); PLATELET COUNT (AUTO) 188 K/uL (152-348); WHITE BLOOD COUNT (AUTO) 7.4 K/uL (3.6-10.2)
[2017-12-19 07:08] LABS: CARBON DIOXIDE 22 mmol/L (21-32); CHLORIDE 107 mmol/L (98-107); CREATININE 0.8 mg/dL (0.6-1.3); GLUCOSE 74 mg/dL (74-106); UREA NITROGEN, BLOOD 13 mg/dL (7-18)
[2017-12-19 08:00] VITALS: BP 150/54
[2017-12-19] MEDS: FINASTERIDE 5 MG TABLET PO SCH (08:10)
[2017-12-19] MEDS: CITALOPRAM 10 MG TABLET PO SCH (08:10)
[2017-12-19] MEDS: ASPIRIN 81 MG TAB.CHEW PO SCH (08:10)
[2017-12-19] MEDS: METOPROLOL TARTRATE 25 MG TABLET PO SCH ×2 (08:10→20:13)
[2017-12-19] MEDS: MULTIVITAMINS,THERAPEUTIC TABLET PO SCH (08:10)
[2017-12-19] MEDS: CLOPIDOGREL 75 MG TABLET PO SCH (08:10)
[2017-12-19] MEDS: BLOOD SUGAR DIAGNOSTIC 1 EACH STRIP VI SCH ×4 (08:11→20:16)
[2017-12-19] MEDS: CIPROFLOXACIN HCL 250 MG TABLET PO SCH ×2 (08:12→20:12)
[2017-12-19] MEDS: ALFUZOSIN HCL 10 MG TAB.SR.24H PO SCH (08:12)
[2017-12-19 10:44] VITALS: BP 100/48
[2017-12-19 12:00] VITALS: BP 100/48
[2017-12-19] MEDS ORDERED: HALOPERIDOL LACTATE 5 MG/1 ML VIAL IM PRN (13:15)
[2017-12-19] MEDS ORDERED: TEMAZEPAM 7.5 MG CAPSULE PO PRN (13:30)
[2017-12-19 15:37] LABS: BILIRUBIN,DIRECT 0.1 mg/dL (0.0-0.2); BILIRUBIN,TOTAL 0.6 mg/dL (0.2-1.0); TOTAL PROTEIN, SERUM 5.8 g/dL (6.4-8.2)
[2017-12-19 16:13] VITALS: BP 92/46
[2017-12-19] MEDS ORDERED: FLUCONAZOLE 200 MG/NS 100ML IV 100 MG in PREMIXED 1 EACH IV SCH ×4 (18:00)
--- NOTE | 2017-12-19 18:39 | NUR ---
PATIENT SLEPT INTERMITTENTLY THROUGHOUT THE SHIFT. PATIENT IS COOPERATIVE WITH PATIENT CARE, NO BEHAVIORAL ISSUES, NON COMBATIVE. PATIENT OCCASIONALLY TRIES TO GET OUT OF BED BUT IS REDIRECTABLE. IVF RUNNING, SAFETY MEASURES IN PLACE. 1:1 SITTER PROVIDED.
--- NOTE | 2017-12-19 19:20 | NUR ---
Received patient lying in bed. AAOX1. Able to make needs known and understand simple questions. In no acute distress. On O2 at 2LPM via NC in place.O2 sat at 95%. Denies any SOB. Companied of back pain. Will give [place] PRN per order. 1:1 sitter on bedside. No anxiety noted at this time. IV site on left hand intact and patent. IVF infusing. Safety measure initiated and Addendum: 12/19/17 at 2058 by LONDON FRITZ RN call abdi within reach.
[2017-12-19 19:43] VITALS: BP 131/62
[2017-12-19] MEDS ORDERED: MICAFUNGIN SODIUM 100 MG in IV NORMAL SALINE 100 ML IV SCH (20:00)
[2017-12-19] MEDS: CLONAZEPAM 0.5 MG TABLET PO SCH (20:12)
[2017-12-19] MEDS: HYDROCODONE/APAP 5-325MG TABLET PO PRN (20:13)
[2017-12-19] MEDS ORDERED: TRAZODONE 50 MG TABLET PO SCH (21:00)
[2017-12-19] MEDS ORDERED: PIPERACILLIN SODIUM/TAZO 3.375 GM VIAL ONE (23:42)
[2017-12-20] MEDS: PIPERACILLIN/TAZOBACTAM/D5W 3.375 G in PREMIXED 1 EACH IV SCH ×3 (00:08→11:02)
[2017-12-20 05:16] VITALS: BP 125/71
--- NOTE | 2017-12-20 06:03 | NUR ---
AAOX1 with periods of confusion. In no acute distress. On O2 at 2LPM via NC in place. O2 sat at 94%. No s/sx of SOB. No further pain complain. 1:1 sitter on bedside. IV site on left hand intact and patent. No adverse effect noted from IV ABX. Safety measure maintained and call abdi within reach.
[2017-12-20 08:15] VITALS: BP 134/58
[2017-12-20] MEDS: CLONAZEPAM 0.5 MG TABLET PO SCH (08:21)
[2017-12-20] MEDS: PROTEIN SUPPLEMENT (PROSTAT) 30 ML LIQUID PO SCH ×2 (08:21→11:01)
[2017-12-20] MEDS: ASPIRIN 81 MG TAB.CHEW PO SCH (08:21)
[2017-12-20] MEDS: MULTIVITAMINS,THERAPEUTIC TABLET PO SCH (08:21)
[2017-12-20] MEDS: CLOPIDOGREL 75 MG TABLET PO SCH (08:21)
[2017-12-20] MEDS: FINASTERIDE 5 MG TABLET PO SCH (08:21)
[2017-12-20] MEDS ORDERED: LACTOBACILLUS RHAMNOSUS GG 1 EACH CAPSULE PO SCH (09:00)
[2017-12-20 12:00] VITALS: BP 152/73
[2017-12-20] MEDS ORDERED: TRAZ-213 PO (16:01)
[2017-12-20] MEDS ORDERED: CLON0.5T12 PO (16:01)
[2017-12-20] MEDS ORDERED: PIPE3.379 IV (16:01)
[2017-12-20] MEDS ORDERED: PROT30LI PO (16:01)
[2017-12-20] MEDS ORDERED: ALFU10TA PO (16:01)
[2017-12-20] MEDS ORDERED: TEMA7.5C PO (16:01)
[2017-12-20] MEDS ORDERED: LACT1CAP57 PO (16:01)
[2017-12-20 16:07] VITALS: BP 130/59
--- NOTE | 2017-12-20 16:30 | NUR ---
PATIENT DISCHARGED TO ARU. DISCHARGE INSTRUCTIONS/TEACHINGS PROVIDED TO PT/SPOUSE, SPOUSE VERBALIZED UNDERSTANDING. PATIENT'S IV SITE INTACT, ID BAND ON. BELONGING LIST DONE. PHOTOS TAKEN.
--- NOTE | 2017-12-20 16:40 | NUR ---
PATIENT TRANSPORTED TO ARU VIA GURNEY. REPORT GIVEN TO KIMBERLY PINA. PATIENT IS ALERT, RESPONSIVE, IN NO DISTRESS.
[2017-12-20] MEDS ORDERED: ALFUZOSIN HCL 10 MG TAB.SR.24H PO SCH (21:00)
== END 2017-12-20 16:45 | DRG 871 ==
LOC: ER 22:47 → TELE 12-14 01:00 → TELE-TD 12-16 15:08 → TELE 12-18 14:34 → MED 12-19 10:32
PROVIDERS: ADMIT Internal Medicine; ATTEND Nurse Practitioner Acute Care
DX: A41.9 Sepsis, unspecified organism (principal); J69.0 Pneumonitis due to inhalation of food and vomit; E43 Unspecified severe protein-calorie malnutrition; G92 Toxic encephalopathy; J96.01 Acute respiratory failure with hypoxia; B37.49 Other urogenital candidiasis; Z68.1 Body mass index [BMI] 19.9 or less, adult; I50.32 Chronic diastolic (congestive) heart failure; E87.1 Hypo-osmolality and hyponatremia; D68.59 Other primary thrombophilia; Z86.14 Personal history of Methicillin resistant Staphylococcus aureus infection; E83.42 Hypomagnesemia; E78.5 Hyperlipidemia, unspecified; R29.6 Repeated falls; N40.1 Benign prostatic hyperplasia with lower urinary tract symptoms; R35.0 Frequency of micturition; R39.15 Urgency of urination; G30.9 Alzheimer's disease, unspecified; F02.80 Dementia in other diseases classified elsewhere, unspecified severity, without behavioral disturbance, psychotic disturbance, mood disturbance, and anxiety; B96.5 Pseudomonas (aeruginosa) (mallei) (pseudomallei) as the cause of diseases classified elsewhere; N39.3 Stress incontinence (female) (male); F41.9 Anxiety disorder, unspecified; F32.9 Major depressive disorder, single episode, unspecified; I25.10 Atherosclerotic heart disease of native coronary artery without angina pectoris; I73.9 Peripheral vascular disease, unspecified; E86.0 Dehydration; I11.0 Hypertensive heart disease with heart failure; I25.2 Old myocardial infarction; M43.12 Spondylolisthesis, cervical region; M48.02 Spinal stenosis, cervical region; Z79.82 Long term (current) use of aspirin; Z85.810 Personal history of malignant neoplasm of tongue; Z96.643 Presence of artificial hip joint, bilateral; Z91.81 History of falling; E87.6 Hypokalemia; D69.6 Thrombocytopenia, unspecified; Z74.09 Other reduced mobility; D63.8 Anemia in other chronic diseases classified elsewhere
CPT/HCPCS: 36415; 70030-TC; 70450; 71045; 72125; 83735; 84100; 85025; 85730; 87086; 92610; 93005; 93307; 97110; 97116; 97530; A4663; J0696; J0744; J1630; J2060; J2248; J2543; J3475; J3490; J7030; J7040; J7060; J8499

== ENCOUNTER 2017-12-20 16:57 | Inpatient (IN) | payer MEDICARE, BC ==
[~2017-12-20] VITALS: Ht 180.3 cm; Wt 61.7 kg
[~2017-12-20 16:57] MED LIST changes: +CLON0.5T12 PO; +LACT1CAP57 PO; +PIPE3.379 IV; +PROT30LI PO; +TEMA7.5C PO; +TRAZ-213 PO
[2017-12-20] MEDS ORDERED: Z GUARD REMEDY PASTE 57 GM TUBE TOP PRN (17:15)
--- NOTE | 2017-12-20 18:18 | NUR ---
Patient came from [facility] in stable condition at 5pm with oxygen via nasal cannula PRN with pulse OXY 95% with diagnosis of Acute metabolic encephalopathy. MD notified. Continue for recurrent UTI. will continue monitor
[2017-12-20] MEDS ORDERED: BISACODYL 10 MG SUPP.RECT RC PRN (18:45)
[2017-12-20 19:34] VITALS: BP 110/50
[2017-12-20] MEDS: CLONAZEPAM 0.5 MG TABLET PO SCH (20:40)
[2017-12-20] MEDS: LACTOBACILLUS RHAMNOSUS GG 1 EACH CAPSULE PO SCH (20:40)
[2017-12-20] MEDS: DOCUSATE SODIUM 100 MG CAPSULE PO SCH (20:40)
[2017-12-20] MEDS: ALFUZOSIN HCL 10 MG TAB.SR.24H PO SCH (20:41)
[2017-12-20] MEDS: TRAZODONE 50 MG TABLET PO SCH (20:45)
[2017-12-20] MEDS: PIPERACILLIN/TAZOBACTAM/D5W 50 ML IV SCH (21:02)
[2017-12-20] MEDS ORDERED: PIPERACILLIN/TAZO/D5W 3.375 GM FROZEN IV SCH (22:00)
--- NOTE | 2017-12-21 04:45 | NUR ---
admitted from med-surg with admitting diagnosis of recurrent UTI/ acute metabolic encepalopathy. aaox2-3 with periodsof confusion and forgetful at times. Patient redirected and follow commands. Hx of dementia, recurrent UTI, anxiety, PVD and S/P carotid endarterectomy. Lung CTA. No respiratory distress noted. On pureed diet. Aspiration precautions maintained. Took meds whole with pudding. Denies any pain nor any discomfort. Voiding in urinal sometimes get incontinence. Fall precautions maintained. Will monitor patient. VSS. Patient on antibiotic for UTI. Tolerated well. No ill effects noted. Skin assessment done, bruises noted and scabs noted all over. left elbow has a skin tear. ( see pictures) Fall precautions maintained. siderails up for safety.
[2017-12-21 05:21] VITALS: BP 131/54
[2017-12-21] MEDS: PIPERACILLIN/TAZOBACTAM/D5W 50 ML IV SCH ×3 (05:33→22:15)
[2017-12-21 07:26] LABS: BASOPHILS % (AUTO) 0.6 % (0.0-2.0); EOSINOPHILS # (AUTO) 0.2 K/uL (0.0-0.7); HEMATOCRIT 27.7 % (36.7-47.1); HEMOGLOBIN 9.6 g/dL (12.5-16.3); LYMPHOCYTES # (AUTO) 0.8 K/uL (20.0-40.0); MEAN CORPUSCULAR HGB CONC 35 g/dL (32.5-36.3); MEAN CORPUSCULAR VOLUME 92.6 fL (73.0-96.2); MONOCYTES # (AUTO) 0.7 K/uL (2.0-10.0); MONOCYTES % (AUTO) 9.9 % (0.0-11.0); NEUTROPHILS # (AUTO) 5.6 K/uL (1.8-8.9); NEUTROPHILS % (AUTO) 75.5 % (38.5-71.5); PLATELET COUNT (AUTO) 239 K/uL (152-348); RED BLOOD CELL COUNT(AUTO) 2.99 MIL/uL (4.06-5.63); WHITE BLOOD COUNT (AUTO) 7.4 K/uL (3.6-10.2)
[2017-12-21 07:44] LABS: CARBON DIOXIDE 24 mmol/L (21-32); CHLORIDE 104 mmol/L (98-107); CHOLESTEROL 96 mg/dL (<200); GLUCOSE 86 mg/dL (74-106); HDL CHOLESTEROL 26 mg/dL (40-60); POTASSIUM 3.5 mmol/L (3.5-5.1); TRIGLYCERIDES 34 MG/DL (30-150); UREA NITROGEN, BLOOD 17 mg/dL (7-18)
[2017-12-21] MEDS ORDERED: Medication Not On Formulary EA (Protein Supplement (Prosource) 30 ML) PO SCH (08:00)
[2017-12-21] MEDS: PROTEIN SUPPLEMENT (PROSTAT) 30 ML LIQUID PO SCH ×3 (08:11→18:32)
[2017-12-21] MEDS: LACTOBACILLUS RHAMNOSUS GG 1 EACH CAPSULE PO SCH ×2 (08:12→21:08)
[2017-12-21] MEDS: MULTIVITAMINS,THERAPEUTIC TABLET PO SCH (08:12)
[2017-12-21] MEDS: CLONAZEPAM 0.5 MG TABLET PO SCH ×2 (08:13→21:09)
[2017-12-21] MEDS: METOPROLOL TARTRATE 25 MG TABLET PO SCH ×2 (11:30→21:10)
[2017-12-21] MEDS: CLOPIDOGREL 75 MG TABLET PO SCH (12:30)
[2017-12-21] MEDS: ASPIRIN 81 MG TAB.CHEW PO SCH (12:30)
--- NOTE | 2017-12-21 18:38 | NUR ---
Pt currently sitting up with visiting at bedside. Pt refused dinner. VSS. Bed in locked and lowest position, with side rails up x2. Bed alarm on, call light within reach. Pt compliant with routine medication administration. No change in status this shift. Pt pulled out IV intact this morning, new IV #18 started in right forearm, flushed, intact, and wrapped for protection. Will continue to monitor and endorse to oncoming research advisor.
[2017-12-21 19:30] VITALS: BP 123/48
[2017-12-21] MEDS: DOCUSATE SODIUM 100 MG CAPSULE PO SCH (21:09)
[2017-12-21] MEDS: TRAZODONE 50 MG TABLET PO SCH (21:09)
[2017-12-21] MEDS: ALFUZOSIN HCL 10 MG TAB.SR.24H PO SCH (21:09)
--- NOTE | 2017-12-21 23:34 | NUR ---
INTERDISCIPLINARY TEAM CONFERENCE
[2017-12-22] MEDS: PIPERACILLIN/TAZOBACTAM/D5W 50 ML IV SCH ×3 (06:28→21:33)
--- NOTE | 2017-12-22 07:15 | NUR ---
Patient received in bed, AAO X3, confused. Able to make needs known. No sign of acute distress or SOB noted. On O2 2 L/min via N/C. No complain of pain V/S checked, brief assessment done. Medication given as ordered. IV on RT FA G 20, intact, no sign of inflammation. Safety measures maintained. Bed brake and alarm on, side rails upx2. Call light and personal belonging within reach. Continue to monitor and will endorse to the day shift nurse.
[2017-12-22 08:00] VITALS: BP 110/44
[2017-12-22] MEDS: PROTEIN SUPPLEMENT (PROSTAT) 30 ML LIQUID PO SCH ×3 (08:00→17:57)
[2017-12-22] MEDS: METOPROLOL TARTRATE 25 MG TABLET PO SCH ×2 (09:00→21:24)
--- NOTE | 2017-12-22 10:00 | NUR ---
Received pt. sitting in chair, no s/sx of distress noted. Pt. A/Ox1 with baseline confusion / dx: Dementia. Denies chest pain or SOB. On 2 LPM via NC sat 99% and tolerating well. No new skin condition noted, Lt. skin tear cleaned and kept dry. On IV zosyn for UTI with RFA PIV. All due meds administered and tolerated well. Held Toprol this AM due to low BP, pt asymptomatic. Fall precaution and safety measures in place. Call light and all frequently used items in reach. Will continue to monitor accordingly.
[2017-12-22] MEDS: ASPIRIN 81 MG TAB.CHEW PO SCH (10:03)
[2017-12-22] MEDS: MULTIVITAMINS,THERAPEUTIC TABLET PO SCH (10:03)
[2017-12-22] MEDS: CLOPIDOGREL 75 MG TABLET PO SCH (10:04)
[2017-12-22] MEDS: LACTOBACILLUS RHAMNOSUS GG 1 EACH CAPSULE PO SCH ×2 (10:04→21:25)
[2017-12-22] MEDS: CLONAZEPAM 0.5 MG TABLET PO SCH ×2 (10:04→21:23)
[2017-12-22 16:15] VITALS: BP 110/52
--- NOTE | 2017-12-22 19:30 | NUR ---
Received patient in bed. Alert and verbally responsive. Able to make needs known. Denies any pain and discomfort at this time. No acute distress. No SOB. IV site on right forearm. No s/s of infection. Patent and intact. Kept clean and dry. All needs attended to promptly. Call light within reach. Will continue to monitor.
[2017-12-22 20:00] VITALS: BP 132/67
[2017-12-22] MEDS: DOCUSATE SODIUM 100 MG CAPSULE PO SCH (21:23)
[2017-12-22] MEDS: TRAZODONE 50 MG TABLET PO SCH (21:24)
[2017-12-22] MEDS: ALFUZOSIN HCL 10 MG TAB.SR.24H PO SCH (21:26)
[2017-12-23 04:00] VITALS: BP 115/55
[2017-12-23 05:34] VITALS: BP 115/55
[2017-12-23] MEDS: PIPERACILLIN/TAZOBACTAM/D5W 50 ML IV SCH ×3 (06:22→23:15)
--- NOTE | 2017-12-23 07:13 | NUR ---
Patient slept comfortably throughout the night. No c/o pain and discomfort. No acute distress. No SOB. IV site to right arm patent and intact. Tolerated IV abx. Kept clean and dry. All needs attended to promptly. Call light within reach. Will continue to monitor.
[2017-12-23] MEDS: LACTOBACILLUS RHAMNOSUS GG 1 EACH CAPSULE PO SCH ×2 (08:48→20:57)
[2017-12-23] MEDS: MULTIVITAMINS,THERAPEUTIC TABLET PO SCH (08:49)
[2017-12-23] MEDS: METOPROLOL TARTRATE 25 MG TABLET PO SCH ×2 (08:49→20:57)
[2017-12-23] MEDS: CLONAZEPAM 0.5 MG TABLET PO SCH ×2 (08:49→20:57)
[2017-12-23] MEDS: PROTEIN SUPPLEMENT (PROSTAT) 30 ML LIQUID PO SCH ×3 (08:50→18:00)
[2017-12-23] MEDS: CLOPIDOGREL 75 MG TABLET PO SCH (08:50)
[2017-12-23] MEDS: ASPIRIN 81 MG TAB.CHEW PO SCH (08:50)
--- NOTE | 2017-12-23 15:35 | NUR ---
PATIENT PULLED OUT RIGHT UPPER ARM IV 20 GAUGE CATHETER INTACT. RE-INSERTED 22 GAUGE LEFT FOREARM. TOLERATED WELL.
[2017-12-23 15:48] VITALS: BP 115/44
--- NOTE | 2017-12-23 19:30 | NUR ---
Sleeping during initial rounds. No s/s of respiratory distress. No s/s of pain/discomforts noted. Safety measures and fall precaution maintained. Continue care as planned.
[2017-12-23 20:52] VITALS: BP 124/55
[2017-12-23] MEDS: DOCUSATE SODIUM 100 MG CAPSULE PO SCH (20:56)
[2017-12-23] MEDS: TRAZODONE 50 MG TABLET PO SCH (20:57)
[2017-12-23] MEDS: ALFUZOSIN HCL 10 MG TAB.SR.24H PO SCH (20:58)
[2017-12-23] MEDS: TEMAZEPAM 7.5 MG CAPSULE PO PRN (23:57)
[2017-12-24] MEDS: PIPERACILLIN/TAZOBACTAM/D5W 50 ML IV SCH ×3 (05:42→22:43)
[2017-12-24 06:05] VITALS: BP 124/55
[2017-12-24 06:09] VITALS: BP 106/68
--- NOTE | 2017-12-24 06:56 | NUR ---
Shift End Report: Vs stable. Slept in between care. Attempted to get out of bed several times when awake, Confused and disoriented. Closed visual observation and fall precaution maintained. Continue on IV antibiotic as ordered without s/s of adverse reaction noted. Continue current rehab plan of care.
[2017-12-24] MEDS: PROTEIN SUPPLEMENT (PROSTAT) 30 ML LIQUID PO SCH ×3 (08:34→17:30)
[2017-12-24] MEDS: CLONAZEPAM 0.5 MG TABLET PO SCH ×2 (08:35→20:21)
[2017-12-24] MEDS: ASPIRIN 81 MG TAB.CHEW PO SCH (08:35)
[2017-12-24] MEDS: LACTOBACILLUS RHAMNOSUS GG 1 EACH CAPSULE PO SCH ×2 (08:35→20:19)
[2017-12-24] MEDS: METOPROLOL TARTRATE 25 MG TABLET PO SCH ×2 (08:35→20:23)
[2017-12-24] MEDS: CLOPIDOGREL 75 MG TABLET PO SCH (08:35)
[2017-12-24] MEDS: MULTIVITAMINS,THERAPEUTIC TABLET PO SCH (08:35)
[2017-12-24] MEDS: MEGESTROL ACETATE 400 MG/10 ML LIQUID UDC PO SCH (14:19)
[2017-12-24 15:51] VITALS: BP 95/43
[2017-12-24 19:43] VITALS: BP 133/52
[2017-12-24] MEDS: ALFUZOSIN HCL 10 MG TAB.SR.24H PO SCH (20:19)
[2017-12-24] MEDS: MIRTAZAPINE 15 MG TABLET PO SCH (20:24)
[2017-12-24] MEDS: TRAZODONE 50 MG TABLET PO SCH (20:44)
[2017-12-24] MEDS: DOCUSATE SODIUM 100 MG CAPSULE PO SCH (20:51)
--- NOTE | 2017-12-25 04:13 | NUR ---
Patient received in bed, AAO X2, confused. Able to make needs known. No sign of acute distress or SOB noted. On O2 2 L/min via N/C. No complain of pain V/S checked, brief assessment done. Medication given as ordered. IV on RT FA G 20, intact, no sign of inflammation. IV antibiotic administered. Safety measures maintained. Bed brake and alarm on, side rails upx2. Call light and personal belonging within reach. Continue to monitor and will endorse to the day shift nurse.
[2017-12-25] MEDS: PIPERACILLIN/TAZOBACTAM/D5W 50 ML IV SCH ×3 (06:07→21:01)
[2017-12-25 06:31] VITALS: BP 117/48
[2017-12-25] MEDS: PROTEIN SUPPLEMENT (PROSTAT) 30 ML LIQUID PO SCH ×3 (08:00→16:55)
[2017-12-25] MEDS: MEGESTROL ACETATE 400 MG/10 ML LIQUID UDC PO SCH (09:01)
[2017-12-25] MEDS: METOPROLOL TARTRATE 25 MG TABLET PO SCH ×2 (09:02→20:56)
[2017-12-25] MEDS: CLONAZEPAM 0.5 MG TABLET PO SCH ×2 (09:02→20:55)
[2017-12-25] MEDS: MULTIVITAMINS,THERAPEUTIC TABLET PO SCH (09:02)
[2017-12-25] MEDS: LACTOBACILLUS RHAMNOSUS GG 1 EACH CAPSULE PO SCH ×2 (09:02→20:55)
[2017-12-25] MEDS: ASPIRIN 81 MG TAB.CHEW PO SCH (09:03)
[2017-12-25] MEDS: CLOPIDOGREL 75 MG TABLET PO SCH (09:03)
[2017-12-25 16:20] VITALS: BP 94/52
--- NOTE | 2017-12-25 17:12 | NUR ---
Patient continue monitoring for safety. safety precaution maintained. Continue therapy for ambulation and unsteady gait. Ongoing ABT IV for UTI. For collection of urine sample. Applied condom catheter but the removed it. urinal also was removed by the patient. will continue monitor
--- NOTE | 2017-12-25 17:28 | NUR ---
Patient with ongoing condom catheter, awaiting to urinate. will continue monitor
--- NOTE | 2017-12-25 19:50 | NUR ---
Received pt in bed, AAO x 1 to self only. No acute distress noted. Able to verbalize basic needs. Denies pain or discomfort at this time, no facial indications of pain noted. All safety measures and fall precautions maintained. Call light and all personal belongings within reach. Will continue to monitor.
[2017-12-25 19:51] VITALS: BP 126/57
[2017-12-25] MEDS: MIRTAZAPINE 15 MG TABLET PO SCH (20:55)
[2017-12-25] MEDS: TRAZODONE 50 MG TABLET PO SCH (20:55)
[2017-12-25] MEDS: ALFUZOSIN HCL 10 MG TAB.SR.24H PO SCH (20:55)
[2017-12-25] MEDS: DOCUSATE SODIUM 100 MG CAPSULE PO SCH (20:55)
[2017-12-25] MEDS: ACETAMINOPHEN 325 MG TABLET PO PRN (20:57)
--- NOTE | 2017-12-25 22:35 | NUR ---
Pt pulled out IV after IV antibiotic infusion completed. Catheter intact. Dressing applied. Safety maintained. Call light within reach. Will continue to monitor.
--- NOTE | 2017-12-26 02:00 | NUR ---
Patient refused IV re-insertion. Offered x 3. Benefits and risks explained. Educated about importance of IV for IV antibiotics. Continued to refuse. Safety maintained. Call light within reach. Will continue to monitor.
--- NOTE | 2017-12-26 05:15 | NUR ---
Patient continues to refuse IV re-insertion. Noted with agitation. Offered x 3, explained risks and benefits. Educated regarding importance of IV. Safety maintained. Call light within reach. Will continue to monitor. Will endorse accordingly AM shift.
[2017-12-26] MEDS: PIPERACILLIN/TAZOBACTAM/D5W 50 ML IV SCH ×2 (06:00→13:48)
[2017-12-26 07:32] LABS: BASOPHILS # (AUTO) 0.1 K/uL (0.0-8.0); BASOPHILS % (AUTO) 1.1 % (0.0-2.0); EOSINOPHILS # (AUTO) 0.5 K/uL (0.0-0.7); EOSINOPHILS % (AUTO) 6.4 % (0.0-7.0); HEMATOCRIT 29.6 % (36.7-47.1); HEMOGLOBIN 10.1 g/dL (12.5-16.3); LYMPHOCYTES # (AUTO) 1.1 K/uL (20.0-40.0); LYMPHOCYTES % (AUTO) 14.3 % (20.5-51.5); MEAN CORPUSCULAR HEMOGLOBIN 31.7 uug (23.8-33.4); MEAN CORPUSCULAR HGB CONC 34 g/dL (32.5-36.3); MEAN CORPUSCULAR VOLUME 92.8 fL (73.0-96.2); MONOCYTES # (AUTO) 0.7 K/uL (2.0-10.0); MONOCYTES % (AUTO) 9.6 % (0.0-11.0); NEUTROPHILS # (AUTO) 5.2 K/uL (1.8-8.9); NEUTROPHILS % (AUTO) 68.6 % (38.5-71.5); PLATELET COUNT (AUTO) 334 K/uL (152-348); RED BLOOD CELL COUNT(AUTO) 3.19 MIL/uL (4.06-5.63); WHITE BLOOD COUNT (AUTO) 7.5 K/uL (3.6-10.2)
[2017-12-26 07:48] LABS: ALANINE AMINOTRANSFERASE 31 U/L (16-63); ALKALINE PHOSPHATASE 68 U/L (50-136); ASPARTATE AMINOTRANSFERASE 21 U/L (15-37); BILIRUBIN,TOTAL 0.4 mg/dL (0.2-1.0); CARBON DIOXIDE 25 mmol/L (21-32); CHLORIDE 107 mmol/L (98-107); CREATININE 1.1 mg/dL (0.6-1.3); GLUCOSE 84 mg/dL (74-106); MAGNESIUM 2.1 mg/dL (1.8-2.4); PHOSPHOROUS 3.4 mg/dL (2.5-4.9); POTASSIUM 3.5 mmol/L (3.5-5.1); TOTAL PROTEIN, SERUM 6.3 g/dL (6.4-8.2); UREA NITROGEN, BLOOD 21 mg/dL (7-18)
[2017-12-26] MEDS: PROTEIN SUPPLEMENT (PROSTAT) 30 ML LIQUID PO SCH ×3 (08:00→17:17)
[2017-12-26 09:00] VITALS: BP 109/43
[2017-12-26] MEDS: METOPROLOL TARTRATE 25 MG TABLET PO SCH ×2 (09:00→20:53)
[2017-12-26] MEDS: CLONAZEPAM 0.5 MG TABLET PO SCH ×2 (09:03→20:52)
[2017-12-26] MEDS: MEGESTROL ACETATE 400 MG/10 ML LIQUID UDC PO SCH (09:03)
[2017-12-26] MEDS: LACTOBACILLUS RHAMNOSUS GG 1 EACH CAPSULE PO SCH ×2 (09:03→21:03)
[2017-12-26] MEDS: CLOPIDOGREL 75 MG TABLET PO SCH (09:04)
[2017-12-26] MEDS: MULTIVITAMINS,THERAPEUTIC TABLET PO SCH (09:04)
[2017-12-26] MEDS: ASPIRIN 81 MG TAB.CHEW PO SCH (09:04)
--- NOTE | 2017-12-26 10:33 | NUR ---
Received patient awake in chair, alert and confused. tried IV for reinsertion but refused. Patient allow to take photos of wound and bruises in arms but refuse in left hip. will try again later. Patient seen in the bathroom by himself without asking for help from the staff. redirect and re orient about the use of call light. will continue monitor
--- NOTE | 2017-12-26 15:30 | NUR ---
IV reinserted on left forearm. intact and patent. Continue ABT Zosyn for infection. no adverse reaction noted. BEVERLY Randolph recommended psych consult but refused. not in distress. will continue monitor
[2017-12-26 16:20] VITALS: BP 123/73
--- NOTE | 2017-12-26 19:30 | NUR ---
Sleeping during initial rounds. No s/s of respiratory distress. Safety measure and fall precaution maintained. Continue care as planned.
[2017-12-26 20:38] VITALS: BP 132/49
[2017-12-26] MEDS: MIRTAZAPINE 15 MG TABLET PO SCH (20:52)
[2017-12-26] MEDS: ALFUZOSIN HCL 10 MG TAB.SR.24H PO SCH (20:52)
[2017-12-26] MEDS: DOCUSATE SODIUM 100 MG CAPSULE PO SCH (20:52)
[2017-12-26] MEDS: TRAZODONE 50 MG TABLET PO SCH (21:01)
--- NOTE | 2017-12-26 21:05 | NUR ---
Awake. confused and disoriented to time. place and situation. Re orientation done. Will monitor.
[2017-12-26] MEDS: TEMAZEPAM 7.5 MG CAPSULE PO PRN (23:44)
[2017-12-26] MEDS: ACETAMINOPHEN 325 MG TABLET PO PRN (23:44)
--- NOTE | 2017-12-27 05:26 | NUR ---
Shift End Report: VS stable. Confused and disoriented. Attempted to get out of bed twice. No fall/injury. No complaint presented. No significant event reported all night, All needs attended. Continue current plan of care.
[2017-12-27 05:30] VITALS: BP 118/46
[2017-12-27 08:00] VITALS: BP 115/40
[2017-12-27] MEDS: PROTEIN SUPPLEMENT (PROSTAT) 30 ML LIQUID PO SCH ×3 (08:00→17:29)
[2017-12-27] MEDS: METOPROLOL TARTRATE 25 MG TABLET PO SCH ×2 (09:00→21:00)
[2017-12-27] MEDS: CLOPIDOGREL 75 MG TABLET PO SCH (11:15)
[2017-12-27] MEDS: LACTOBACILLUS RHAMNOSUS GG 1 EACH CAPSULE PO SCH ×2 (11:15→20:36)
[2017-12-27] MEDS: ASPIRIN 81 MG TAB.CHEW PO SCH (11:15)
[2017-12-27] MEDS: CLONAZEPAM 0.5 MG TABLET PO SCH ×2 (11:15→20:30)
[2017-12-27] MEDS: MULTIVITAMINS,THERAPEUTIC TABLET PO SCH (11:15)
[2017-12-27] MEDS: MEGESTROL ACETATE 400 MG/10 ML LIQUID UDC PO SCH (11:16)
--- NOTE | 2017-12-27 15:30 | NUR ---
Assumed responsibility. Report received from Charo HARRIS. Patient awake, verbally responsive, not in any form of acute distress. Patient denies any pain or discomfort at this time. Billy Goode at bedside. Addendum: 12/27/17 at 1818 by JAYESH ALDANA RN RN Correction: Assumed care at this time.
[2017-12-27 16:00] VITALS: BP 109/40
--- NOTE | 2017-12-27 19:10 | NUR ---
received pt asleep on bed, no signs of acute distress noted at this time. IV site on L hand, patent and intact. safety measures initiated, call abdi within reach.
[2017-12-27 20:24] VITALS: BP 108/60
[2017-12-27] MEDS: DOCUSATE SODIUM 100 MG CAPSULE PO SCH (20:29)
[2017-12-27] MEDS: MIRTAZAPINE 15 MG TABLET PO SCH (20:29)
[2017-12-27] MEDS: TRAZODONE 50 MG TABLET PO SCH (20:29)
[2017-12-27] MEDS: ALFUZOSIN HCL 10 MG TAB.SR.24H PO SCH (20:36)
[2017-12-27] MEDS: FLUCONAZOLE 100 MG TABLET PO SCH (22:22)
[2017-12-28] MEDS: TEMAZEPAM 7.5 MG CAPSULE PO PRN (00:05)
[2017-12-28] MEDS: ACETAMINOPHEN 325 MG TABLET PO PRN (00:09)
--- NOTE | 2017-12-28 06:04 | NUR ---
pt resting comfortably on bed, with periods of confusion throughout the shift. redirection and pericare provided. no signs of discomfort noted at this time. safe environment maintained at all times, call abdi within reach.
[2017-12-28 08:00] VITALS: BP 130/52
[2017-12-28] MEDS: PROTEIN SUPPLEMENT (PROSTAT) 30 ML LIQUID PO SCH ×3 (08:00→17:10)
[2017-12-28] MEDS: ASPIRIN 81 MG TAB.CHEW PO SCH (10:15)
[2017-12-28] MEDS: FLUCONAZOLE 100 MG TABLET PO SCH (10:15)
[2017-12-28] MEDS: LACTOBACILLUS RHAMNOSUS GG 1 EACH CAPSULE PO SCH ×2 (10:15→22:12)
[2017-12-28] MEDS: CLOPIDOGREL 75 MG TABLET PO SCH (10:16)
[2017-12-28] MEDS: MEGESTROL ACETATE 400 MG/10 ML LIQUID UDC PO SCH (10:16)
[2017-12-28] MEDS: MULTIVITAMINS,THERAPEUTIC TABLET PO SCH (10:16)
[2017-12-28] MEDS: CLONAZEPAM 0.5 MG TABLET PO SCH ×2 (10:17→22:07)
[2017-12-28] MEDS: METOPROLOL TARTRATE 25 MG TABLET PO SCH ×2 (11:29→22:10)
--- NOTE | 2017-12-28 13:43 | NUR ---
INTERDISCIPLINARY TEAM CONFERENCE
[2017-12-28 16:00] VITALS: BP 122/56
--- NOTE | 2017-12-28 18:59 | NUR ---
PT'S AWAKE, RESPONSIVE BUT WITH CONFUSION AT TIMES. WITH POOR APPETITE, SELECTIVE ON WHAT HE EATS .MOSTLY DRINKS ENSURE . NO C/O PAIN NOR DISCOMFORT. TOOK HIS MEDS TODAY. FALL PRECAUTION MAINTAINED.
[2017-12-28 19:30] VITALS: BP 128/50
--- NOTE | 2017-12-28 20:15 | NUR ---
Patient is confused and disoriented. Wandered into other patient's room. Difficult to redirect. Argumentative,. However, no violent behavior. Patient assisted to a chair outside his room. Vital signs remained WNL. Will monitor behavior and medication effectiveness throughout shift.
[2017-12-28] MEDS: ALFUZOSIN HCL 10 MG TAB.SR.24H PO SCH (22:05)
[2017-12-28] MEDS: DOCUSATE SODIUM 100 MG CAPSULE PO SCH (22:05)
[2017-12-28] MEDS: TRAZODONE 50 MG TABLET PO SCH (22:08)
[2017-12-28] MEDS: MIRTAZAPINE 15 MG TABLET PO SCH (22:11)
[2017-12-29] MEDS: ACETAMINOPHEN 325 MG TABLET PO PRN ×2 (01:35→23:01)
[2017-12-29] MEDS: TEMAZEPAM 7.5 MG CAPSULE PO PRN ×2 (01:36→23:01)
[2017-12-29 04:00] VITALS: BP 124/55
[2017-12-29 09:00] VITALS: BP 102/41
[2017-12-29] MEDS: METOPROLOL TARTRATE 25 MG TABLET PO SCH ×2 (09:00→21:18)
[2017-12-29] MEDS: MULTIVITAMINS,THERAPEUTIC TABLET PO SCH (09:01)
[2017-12-29] MEDS: ASPIRIN 81 MG TAB.CHEW PO SCH (09:01)
[2017-12-29] MEDS: PROTEIN SUPPLEMENT (PROSTAT) 30 ML LIQUID PO SCH ×3 (09:01→17:00)
[2017-12-29] MEDS: FLUCONAZOLE 100 MG TABLET PO SCH (09:01)
[2017-12-29] MEDS: LACTOBACILLUS RHAMNOSUS GG 1 EACH CAPSULE PO SCH ×2 (09:01→21:17)
[2017-12-29] MEDS: CLOPIDOGREL 75 MG TABLET PO SCH (09:01)
[2017-12-29] MEDS: MEGESTROL ACETATE 400 MG/10 ML LIQUID UDC PO SCH (09:01)
[2017-12-29] MEDS: CLONAZEPAM 0.5 MG TABLET PO SCH ×2 (09:02→21:17)
[2017-12-29 16:00] VITALS: BP 133/62
[2017-12-29 19:30] VITALS: BP 121/48
[2017-12-29] MEDS: TRAZODONE 50 MG TABLET PO SCH (21:17)
[2017-12-29] MEDS: DOCUSATE SODIUM 100 MG CAPSULE PO SCH (21:17)
[2017-12-29] MEDS: ALFUZOSIN HCL 10 MG TAB.SR.24H PO SCH (21:18)
[2017-12-29] MEDS: MIRTAZAPINE 15 MG TABLET PO SCH (21:18)
[2017-12-30 04:00] VITALS: BP 111/41
[2017-12-30] MEDS: PROTEIN SUPPLEMENT (PROSTAT) 30 ML LIQUID PO SCH ×3 (07:53→18:35)
[2017-12-30 08:00] VITALS: BP 147/76
[2017-12-30] MEDS: MULTIVITAMINS,THERAPEUTIC TABLET PO SCH (09:17)
[2017-12-30] MEDS: ASPIRIN 81 MG TAB.CHEW PO SCH (09:17)
[2017-12-30] MEDS: CLONAZEPAM 0.5 MG TABLET PO SCH ×2 (09:17→20:47)
[2017-12-30] MEDS: CLOPIDOGREL 75 MG TABLET PO SCH (09:17)
[2017-12-30] MEDS: FLUCONAZOLE 100 MG TABLET PO SCH (09:18)
[2017-12-30] MEDS: METOPROLOL TARTRATE 25 MG TABLET PO SCH ×2 (09:18→20:49)
[2017-12-30] MEDS: LACTOBACILLUS RHAMNOSUS GG 1 EACH CAPSULE PO SCH ×2 (09:19→20:46)
[2017-12-30] MEDS: MEGESTROL ACETATE 400 MG/10 ML LIQUID UDC PO SCH (09:19)
[2017-12-30 16:16] VITALS: BP 105/59
--- NOTE | 2017-12-30 20:15 | NUR ---
Start Of Shift: A/O x1 Lungs clear bilat V/s wnl in his own bedroom complaining that he doesn't know why he is here, where his is and how long he will be here. Reorientated to place, time and why he was admitted into the hospital. 1-1 with patient for 15 min to reorientate him.
[2017-12-30] MEDS: ALFUZOSIN HCL 10 MG TAB.SR.24H PO SCH (20:46)
[2017-12-30] MEDS: TRAZODONE 50 MG TABLET PO SCH (20:48)
[2017-12-30] MEDS: DOCUSATE SODIUM 100 MG CAPSULE PO SCH (20:48)
[2017-12-30] MEDS: MIRTAZAPINE 15 MG TABLET PO SCH (20:49)
--- NOTE | 2017-12-30 21:10 | NUR ---
Administrated pt Hs meds took 15 mins to explain his meds to pt given them crushed with nectar obey forbes. Brandon well.
--- NOTE | 2017-12-30 22:45 | NUR ---
Assisted pt to bed, given a warm blanket. Denies of any distress.
--- NOTE | 2017-12-31 06:04 | NUR ---
End of Shift: Lying in bed eyes closed rep even and unlab slept 7 hours. Siderails up, Call light within reach.
[2017-12-31 08:00] VITALS: BP 117/59
[2017-12-31] MEDS: ASPIRIN 81 MG TAB.CHEW PO SCH (09:30)
[2017-12-31] MEDS: CLOPIDOGREL 75 MG TABLET PO SCH (09:31)
[2017-12-31] MEDS: MULTIVITAMINS,THERAPEUTIC TABLET PO SCH (09:31)
[2017-12-31] MEDS: FLUCONAZOLE 100 MG TABLET PO SCH (09:31)
[2017-12-31] MEDS: CLONAZEPAM 0.5 MG TABLET PO SCH ×2 (09:31→20:41)
[2017-12-31] MEDS: PROTEIN SUPPLEMENT (PROSTAT) 30 ML LIQUID PO SCH ×3 (09:31→18:29)
[2017-12-31] MEDS: LACTOBACILLUS RHAMNOSUS GG 1 EACH CAPSULE PO SCH ×2 (09:32→20:40)
[2017-12-31] MEDS: MEGESTROL ACETATE 400 MG/10 ML LIQUID UDC PO SCH (09:32)
[2017-12-31] MEDS: METOPROLOL TARTRATE 25 MG TABLET PO SCH ×2 (09:35→20:41)
--- NOTE | 2017-12-31 11:23 | NUR ---
Received pt. in bed lying comfortable. No s/sx of acute distress noted. Pt. A/OX1-2 with baseline confusion 2/2 dx: dementia, able to follow simple commands. All due AM medications administered as ordered and tolerated well. Kept pt. clean and dry. Oral care provided. No new skin condition identified. No s/sx of bleeding, currently on Plavix. Fall precaution and all safety measures in place. Call light and all frequently used items in reach. Will continue to monitor accordingly.
[2017-12-31 15:48] VITALS: BP 112/55
--- NOTE | 2017-12-31 18:51 | NUR ---
EOS Note: No significant change during this shift. Pt. A/OX1, oriented to self only with confusion. Encourage pt. extra po fluid intake as tolerated. Offered cranberry for UTI PPX. Safety measures and fall precaution in place. No new skin identified. Spouse visited pt. today. All due medications administered as ordered. Kept. pt. comfortable, all needs met. Call light and all frequently used items within pt. reach. Will endorse to oncoming shift. accordingly.
[2017-12-31 19:30] VITALS: BP 117/49
[2017-12-31] MEDS: DOCUSATE SODIUM 100 MG CAPSULE PO SCH (20:40)
[2017-12-31] MEDS: TRAZODONE 50 MG TABLET PO SCH (20:41)
[2017-12-31] MEDS: MIRTAZAPINE 15 MG TABLET PO SCH (20:41)
[2017-12-31] MEDS: ALFUZOSIN HCL 10 MG TAB.SR.24H PO SCH (20:41)
--- NOTE | 2017-12-31 20:53 | NUR ---
Received pt at beginning of shift in bed, shouting 's name. Explained that is at home but she will come tomorrow morning. Pt verbalized understanding. A/O x 1 to self. Verbally responsive and able to make needs known. No acute distress noted. Denies pain or discomfort at this time. No noted facial indications of pain. All due medications given and well tolerated. All safety measures and fall precautions maintained. Call light and all personal belongings within reach. Will continue to monitor.
[2018-01-01] MEDS: TEMAZEPAM 7.5 MG CAPSULE PO PRN (00:27)
[2018-01-01] MEDS: ACETAMINOPHEN 325 MG TABLET PO PRN (00:27)
[2018-01-01 04:00] VITALS: BP 111/42
[2018-01-01 08:00] VITALS: BP 117/60
--- NOTE | 2018-01-01 08:30 | NUR ---
Received patient, awake, alert x1-2. With periods of confusion. Not in apparent pain. Not in any form of distress. For discharge to home today. Encouraged small frequent meals.
[2018-01-01] MEDS: PROTEIN SUPPLEMENT (PROSTAT) 30 ML LIQUID PO SCH ×2 (09:41→11:44)
[2018-01-01] MEDS: LACTOBACILLUS RHAMNOSUS GG 1 EACH CAPSULE PO SCH (09:42)
[2018-01-01] MEDS: FLUCONAZOLE 100 MG TABLET PO SCH (09:42)
[2018-01-01] MEDS: ASPIRIN 81 MG TAB.CHEW PO SCH (09:42)
[2018-01-01] MEDS: CLONAZEPAM 0.5 MG TABLET PO SCH (09:42)
[2018-01-01] MEDS: MEGESTROL ACETATE 400 MG/10 ML LIQUID UDC PO SCH (09:42)
[2018-01-01] MEDS: CLOPIDOGREL 75 MG TABLET PO SCH (09:42)
[2018-01-01 09:56] VITALS: BP 117/60
[2018-01-01] MEDS: METOPROLOL TARTRATE 25 MG TABLET PO SCH (09:56)
[2018-01-01] MEDS: MULTIVITAMINS,THERAPEUTIC TABLET PO SCH (09:56)
--- NOTE | 2018-01-01 12:30 | NUR ---
Discharge order obtained from Dr. Baird. Routine discharge care done. Medication prescriptions completed by Dr. Lawler, aware of discharge. instructed Rupa about follow-up with PCP. Instructed to take medications as prescribed. Instructed patient about honey thick liquids and to have patient on mechanical soft diet. Went home in stable condition per private transport accompanied by Rupa, .
== END 2018-01-01 12:40 | disposition home health service (06) | DRG 91 ==
PROVIDERS: ADMIT Physical Medicine & Rehabilitation Pain Medicine; ATTEND Physical Medicine & Rehabilitation Pain Medicine
DX: G92 Toxic encephalopathy (principal); E43 Unspecified severe protein-calorie malnutrition; J69.0 Pneumonitis due to inhalation of food and vomit; I47.1 Supraventricular tachycardia; D68.59 Other primary thrombophilia; I50.32 Chronic diastolic (congestive) heart failure; Z68.1 Body mass index [BMI] 19.9 or less, adult; B48.8 Other specified mycoses; N39.0 Urinary tract infection, site not specified; I25.2 Old myocardial infarction; I10 Essential (primary) hypertension; R29.6 Repeated falls; I25.10 Atherosclerotic heart disease of native coronary artery without angina pectoris; D63.8 Anemia in other chronic diseases classified elsewhere; Z98.1 Arthrodesis status; I73.9 Peripheral vascular disease, unspecified; B96.89 Other specified bacterial agents as the cause of diseases classified elsewhere; E78.5 Hyperlipidemia, unspecified; I11.0 Hypertensive heart disease with heart failure; I70.0 Atherosclerosis of aorta; N40.0 Benign prostatic hyperplasia without lower urinary tract symptoms; R13.10 Dysphagia, unspecified; Z85.810 Personal history of malignant neoplasm of tongue; Z96.643 Presence of artificial hip joint, bilateral; R26.81 Unsteadiness on feet; G30.9 Alzheimer's disease, unspecified; F02.80 Dementia in other diseases classified elsewhere, unspecified severity, without behavioral disturbance, psychotic disturbance, mood disturbance, and anxiety; R77.1 Abnormality of globulin
CPT/HCPCS: 36415; 71045; 83735; 84100; 85025; 87086; 92523; 92526; 92610; 97110; 97112; 97116; 97530; 97535; A4663; C1758; J2543; J7040; J8499; J8999

== ENCOUNTER 2018-01-04 11:59 | Inpatient (IN) | payer MEDICARE, BC ==
[~2018-01-04] VITALS: Ht 180.3 cm; Wt 61.2 kg
[~2018-01-04 11:59] MED LIST changes: -ALPR0.5T PO; -ASPI81TA31 PO; -ATOR80TA PO; -CITA10TA9 PO; -CLOP75TA15 PO; -FINA5TAB11 PO; -HYDR-3326 PO; -MENT71OI TOP; -MULT1TAB73 PO; -NITR100C11 PO; -QUET25TA PO
--- NOTE | 2018-01-04 12:21 | NUR ---
Pt was brought in by ambulance for complaints of frequent falls, bilat shoulder pain, R wrist pain. Last fall was last night. Denies LOC, head or neck injury. Pt tried to break fall by sticking arms out. Unable to lift BUE above chest level d/t severe pain. R wrist swelling, bruising and pain noted. Gen shaking. Febrile upon arrival. Alert, oriented x3. No sob noted. No s/sx of distress noted. Resp even and unlabored. Will cont to monitor. Skin to buttocks intact. Call light within reach. Cooling measures provided. FSBS 112 Addendum: 01/04/18 at 1559 by KRYSTAL Alert, oriented x1
[2018-01-04] MEDS ORDERED: ATOR80TA PO (12:41)
[2018-01-04] MEDS ORDERED: ASPI81TA31 PO (12:41)
[2018-01-04] MEDS ORDERED: MIRT45TA83 PO (12:41)
[2018-01-04] MEDS ORDERED: METO-356 PO (12:41)
[2018-01-04] MEDS ORDERED: ESCI20TA PO (12:41)
[2018-01-04] MEDS ORDERED: CLOP75TA15 PO (12:41)
[2018-01-04] MEDS ORDERED: IV NORMAL SALINE 1000 ML BAG IV ONE (12:45)
[2018-01-04] MEDS ORDERED: ACETAMINOPHEN ES 500 MG TABLET PO ONE (12:45)
[2018-01-04] MEDS ORDERED: ACETAMINOPHEN ES 500 MG TABLET ONE (13:03)
[2018-01-04 13:10] LABS: BASOPHILS # (AUTO) 0.1 K/uL (0.0-8.0); BASOPHILS % (AUTO) 0.7 % (0.0-2.0); EOSINOPHILS % (AUTO) 0.2 % (0.0-7.0); HEMATOCRIT 31.9 % (36.7-47.1); HEMOGLOBIN 10.6 g/dL (12.5-16.3); LYMPHOCYTES # (AUTO) 0.7 K/uL (20.0-40.0); LYMPHOCYTES % (AUTO) 5.9 % (20.5-51.5); MEAN CORPUSCULAR HEMOGLOBIN 30.7 uug (23.8-33.4); MEAN CORPUSCULAR HGB CONC 33 g/dL (32.5-36.3); MEAN CORPUSCULAR VOLUME 92.6 fL (73.0-96.2); MONOCYTES # (AUTO) 1.3 K/uL (2.0-10.0); MONOCYTES % (AUTO) 10.6 % (0.0-11.0); NEUTROPHILS # (AUTO) 9.9 K/uL (1.8-8.9); NEUTROPHILS % (AUTO) 82.6 % (38.5-71.5); PLATELET COUNT (AUTO) 342 K/uL (152-348); RED BLOOD CELL COUNT(AUTO) 3.45 MIL/uL (4.06-5.63)
[2018-01-04 13:19] LABS: CARBON DIOXIDE 24 mmol/L (21-32); CHLORIDE 104 mmol/L (98-107); CREATININE 1.2 mg/dL (0.6-1.3); GLUCOSE 118 mg/dL (74-106); POTASSIUM 4.1 mmol/L (3.5-5.1); UREA NITROGEN, BLOOD 27 mg/dL (7-18)
[2018-01-04] MEDS ORDERED: ONDANSETRON 4 MG/2 ML VIAL ONE (13:30)
[2018-01-04] MEDS ORDERED: MORPHINE SULFATE 4 MG/1 ML DISP.SYRIN ONE (13:30)
[2018-01-04 13:36] LABS: ALANINE AMINOTRANSFERASE 15 U/L (16-63); ALKALINE PHOSPHATASE 97 U/L (50-136); ASPARTATE AMINOTRANSFERASE 14 U/L (15-37); BILIRUBIN,DIRECT 0.2 mg/dL (0.0-0.2); BILIRUBIN,TOTAL 0.8 mg/dL (0.2-1.0); TOTAL PROTEIN, SERUM 7.3 g/dL (6.4-8.2)
[2018-01-04 14:27] LABS: *BILIRUBIN,URIN NEGATIVE (NEGATIVE); *BLOOD, URINE Trace-intact (NEGATIVE); *COLOR,URINE AMBER (YELLOW); *KETONES,URINE 1+ (NEGATIVE); *PROTEIN,URINE 1+ (NEGATIVE); *UROBILINOGEN,URINE 0.2 E.U./dl (NORMAL); LEUKOCYTE ESTERASE ,URINE 1+ (NEGATIVE); NITRITE, URINE NEGATIVE (NEGATIVE); UGLUCOSE NEGATIVE (NEGATIVE)
[2018-01-04 14:33] LABS: *CLARITY,URINE HAZY (CLEAR)
[2018-01-04 14:34] LABS: SQUAMOUS EPITHELIAL CELL,UR FEW /HPF (NONE SEEN); WBC,URINE 20-50 /HPF (0-3)
[2018-01-04 14:35] LABS: MUCUS,URINE MANY /LPF (0-FEW)
[2018-01-04] MEDS ORDERED: ONDANSETRON 4 MG/2 ML VIAL IV ONE (14:45)
[2018-01-04] MEDS ORDERED: VANCOMYCIN IV 1,000 MG in IV DEXTROSE 5% 250 ML IV ONE ×2 (14:45→15:00)
[2018-01-04] MEDS ORDERED: MORPHINE SULFATE 2 MG/1 ML DISP.SYRIN IV ONE (14:45)
[2018-01-04] MEDS ORDERED: CEFTRIAXONE 1 G in IV DEXTROSE 5% 50 ML IV ONE ×2 (14:45→15:00)
[2018-01-04] MEDS ORDERED: FLUCONAZOLE 400 MG /NS 200 ML PIGGYBACK IV ONE ×2 (14:54→15:00)
[2018-01-04] MEDS ORDERED: VANCOMYCIN IV 200 ML ONE (14:54)
[2018-01-04] MEDS ORDERED: CEFTRIAXONE 1 G VIAL ONE (14:54)
--- NOTE | 2018-01-04 15:31 | NUR ---
Report given to KIMBERLY Carrion
--- NOTE | 2018-01-04 16:38 | NUR ---
MD made aware of pt's BP. New order received.
[2018-01-04] MEDS ORDERED: IV NS 1000 ML 1,000 ML IV ONE (16:45)
--- NOTE | 2018-01-04 16:55 | NUR ---
Pt. admitted to Tele , under care of Dr. Wright Belongs List completed
[2018-01-04 17:08] VITALS: BP 114/58
[2018-01-04] MEDS ORDERED: ONDANSETRON 4 MG/2 ML VIAL IV PRN (18:45)
[2018-01-04] MEDS ORDERED: TEMAZEPAM 7.5 MG CAPSULE PO PRN (18:45)
[2018-01-04] MEDS ORDERED: MORPHINE SULFATE 2 MG/1 ML DISP.SYRIN IV PRN (18:45)
[2018-01-04] MEDS ORDERED: ACETAMINOPHEN 325 MG TABLET PO PRN ×2 (18:45)
[2018-01-04] MEDS ORDERED: Z GUARD REMEDY PASTE 57 GM TUBE TOP PRN (18:45)
[2018-01-04] MEDS ORDERED: BISACODYL 10 MG SUPP.RECT RC PRN (18:45)
[2018-01-04 19:00] VITALS: BP 123/47
[2018-01-04] MEDS ORDERED: MORPHINE SULFATE 4 MG/1 ML DISP.SYRIN IV PRN (20:00)
--- NOTE | 2018-01-04 20:00 | NUR ---
Received patient laying comfortably in bed, is at bedside. No acute distress noted. A/O x 3 but forgetful. On room air. TELE SR with some PVC's. Fall precaution initiated. Bed alarm on. Afebrile. Safety initiated. Call light within reach. Will closely monitor.
[2018-01-04] MEDS ORDERED: DOCUSATE SODIUM 250 MG CAPSULE PO SCH (21:00)
[2018-01-04] MEDS: CEFTRIAXONE 1 G in IV DEXTROSE 5% 50 ML IV SCH (21:17)
[2018-01-04] MEDS: Z GUARD REMEDY PASTE 57 GM TUBE TOP SCH (21:18)
[2018-01-04] MEDS: DOCUSATE SODIUM 100 MG CAPSULE PO SCH (21:18)
[2018-01-04] MEDS: TRAZODONE 50 MG TABLET PO SCH (21:18)
[2018-01-04] MEDS: ALFUZOSIN HCL 10 MG TAB.SR.24H PO SCH (21:18)
[2018-01-04] MEDS ORDERED: MICAFUNGIN SODIUM 100 MG in IV NORMAL SALINE 100 ML IV SCH (22:00)
[2018-01-05] VITALS: BP 116/43
[2018-01-05 04:00] VITALS: BP 112/43
--- NOTE | 2018-01-05 05:40 | NUR ---
Patient slept intermittently t/o shift. No acute distress noted. Afebrile. IV on the Left FA, patient and intact. TELE SR with some PVC's. Good urine output. Fall precautions observed t/o shift. Bed kept in low and locked position. Room kep clutter free. All meds given as ordered. All needs met.
[2018-01-05] MEDS: PANTOPRAZOLE SODIUM 40 MG TABLET.DR PO SCH (06:03)
[2018-01-05 06:49] LABS: BASOPHILS % (AUTO) 0.5 % (0.0-2.0); EOSINOPHILS # (AUTO) 0.1 K/uL (0.0-0.7); HEMATOCRIT 27.2 % (36.7-47.1); LYMPHOCYTES % (AUTO) 12.3 % (20.5-51.5); MEAN CORPUSCULAR HEMOGLOBIN 30.3 uug (23.8-33.4); MEAN CORPUSCULAR HGB CONC 33 g/dL (32.5-36.3); MEAN CORPUSCULAR VOLUME 91.7 fL (73.0-96.2); MONOCYTES % (AUTO) 11.8 % (0.0-11.0); NEUTROPHILS % (AUTO) 74.4 % (38.5-71.5); PLATELET COUNT (AUTO) 274 K/uL (152-348); RED BLOOD CELL COUNT(AUTO) 2.97 MIL/uL (4.06-5.63); WHITE BLOOD COUNT (AUTO) 8.1 K/uL (3.6-10.2)
[2018-01-05 07:12] LABS: CARBON DIOXIDE 20 mmol/L (21-32); CHLORIDE 106 mmol/L (98-107); GLUCOSE 75 mg/dL (74-106); POTASSIUM 4.1 mmol/L (3.5-5.1)
[2018-01-05 07:13] LABS: ALANINE AMINOTRANSFERASE 12 U/L (16-63); ALKALINE PHOSPHATASE 76 U/L (50-136); ASPARTATE AMINOTRANSFERASE 11 U/L (15-37); BILIRUBIN,TOTAL 0.5 mg/dL (0.2-1.0); MAGNESIUM 1.8 mg/dL (1.8-2.4); PHOSPHOROUS 2.6 mg/dL (2.5-4.9); TOTAL PROTEIN, SERUM 5.9 g/dL (6.4-8.2); UREA NITROGEN, BLOOD 19 mg/dL (7-18)
[2018-01-05] MEDS ORDERED: Medication Not On Formulary EA (Protein Supplement (Prosource) 30 ML) PO SCH (08:00)
[2018-01-05] MEDS: PROTEIN SUPPLEMENT (PROSTAT) 30 ML LIQUID PO SCH ×3 (08:00→17:44)
[2018-01-05] MEDS: Z GUARD REMEDY PASTE 57 GM TUBE TOP SCH ×2 (08:22→21:15)
[2018-01-05] MEDS: ASPIRIN EC 81 MG TABLET.DR PO SCH (08:25)
[2018-01-05] MEDS: CLOPIDOGREL 75 MG TABLET PO SCH (08:25)
[2018-01-05] MEDS: MEGESTROL ACETATE 400 MG/10 ML LIQUID UDC PO SCH (11:04)
[2018-01-05 11:20] VITALS: BP 110/41
[2018-01-05] MEDS ORDERED: VANCOMYCIN IV 1 G in PREMIXED 0 EACH IV SCH (11:30)
--- NOTE | 2018-01-05 11:41 | NUR ---
PHARMACY CLINICAL NOTES: (VANCOMYCIN DOSING) S: 82 YO male; was on rocephine and BC + G+C; wants to add Vancomycin. O: BUN/SCR (01/04) 27/1.2; (01/05) 19/1.0; WBC(01/04) 12.0 (01/05) 8.1; TEMP 98.9; BC + G+C, UC - (both prelim) A/P : PT recieved 1ST dose of VANCO IN ER @ 15:31 on 01/04. Will continue with Vancomycin 1 gm q20h second dose today @ 11:30; estimeated peak of 38 and trough of 16. Will continue monitoring renal fxn and will order a level prior to 4th dose (not ordered yet) and adjust the dose as necessary.
[2018-01-05] MEDS: VANCOMYCIN IV 1 G in PREMIXED 0 EACH IV SCH (12:26)
[2018-01-05 15:38] VITALS: BP 100/56
[2018-01-05 20:00] VITALS: BP 116/42
--- NOTE | 2018-01-05 20:00 | NUR ---
Received patient laying comfortably in bed, is at bedside. No acute distress noted. A/O x 3 but forgetful. On room air. TELE SR with some PVC's. IV on the left FA patent and intact. Wrapped in kirlex. Fall precaution initiated. Bed alarm on. Afebrile. Safety initiated. Call light within reach. Will closely monitor.
[2018-01-05] MEDS: ALFUZOSIN HCL 10 MG TAB.SR.24H PO SCH (21:15)
[2018-01-05] MEDS: CEFTRIAXONE 1 G in IV DEXTROSE 5% 50 ML IV SCH (21:15)
[2018-01-05] MEDS: TRAZODONE 50 MG TABLET PO SCH (21:15)
[2018-01-05] MEDS: DOCUSATE SODIUM 100 MG CAPSULE PO SCH (21:15)
[2018-01-06] MEDS: CLONAZEPAM 0.5 MG TABLET PO PRN ×2 (00:24→11:18)
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
[2018-01-06 04:00] VITALS: BP 121/49
--- NOTE | 2018-01-06 05:40 | NUR ---
Patient slept intermittently t/o shift. Was non compliant with meds and appears agitated at the beginning of shift. His Rupa was called via telephone and help patient understand the importance of his medications. He pulled out his IV, re-inserted a new IV on the right FA # 20. Tolerated it well. TELE SR. On Room air. Good urine output. Afebrile. No distress noted t/o shift. All meds given as ordered. All needs met. Safety and comfort measures maintained t/o shift.
[2018-01-06] MEDS: PANTOPRAZOLE SODIUM 40 MG TABLET.DR PO SCH (06:00)
[2018-01-06] MEDS: VANCOMYCIN IV 1 G in PREMIXED 0 EACH IV SCH (06:42)
[2018-01-06 07:05] LABS: CARBON DIOXIDE 22 mmol/L (21-32); CHLORIDE 106 mmol/L (98-107); CREATININE 1.1 mg/dL (0.6-1.3); GLUCOSE 83 mg/dL (74-106); MAGNESIUM 1.8 mg/dL (1.8-2.4); UREA NITROGEN, BLOOD 17 mg/dL (7-18)
[2018-01-06 07:49] LABS: BASOPHILS % (AUTO) 0.5 % (0.0-2.0); EOSINOPHILS # (AUTO) 0.2 K/uL (0.0-0.7); EOSINOPHILS % (AUTO) 2.8 % (0.0-7.0); HEMATOCRIT 25.8 % (36.7-47.1); HEMOGLOBIN 8.7 g/dL (12.5-16.3); LYMPHOCYTES # (AUTO) 0.9 K/uL (20.0-40.0); LYMPHOCYTES % (AUTO) 12.6 % (20.5-51.5); MEAN CORPUSCULAR HEMOGLOBIN 31.3 uug (23.8-33.4); MEAN CORPUSCULAR HGB CONC 34 g/dL (32.5-36.3); MEAN CORPUSCULAR VOLUME 92.7 fL (73.0-96.2); MONOCYTES # (AUTO) 0.7 K/uL (2.0-10.0); MONOCYTES % (AUTO) 10.1 % (0.0-11.0); PLATELET COUNT (AUTO) 260 K/uL (152-348); RED BLOOD CELL COUNT(AUTO) 2.79 MIL/uL (4.06-5.63); WHITE BLOOD COUNT (AUTO) 6.8 K/uL (3.6-10.2)
--- NOTE | 2018-01-06 07:54 | NUR ---
pt received in bed awake.pt is axox1.v/s are stable,bed alarm on
[2018-01-06] MEDS: PROTEIN SUPPLEMENT (PROSTAT) 30 ML LIQUID PO SCH ×3 (07:56→16:01)
[2018-01-06] MEDS: CLOPIDOGREL 75 MG TABLET PO SCH (08:00)
[2018-01-06] MEDS: ASPIRIN EC 81 MG TABLET.DR PO SCH (08:00)
[2018-01-06] MEDS: MEGESTROL ACETATE 400 MG/10 ML LIQUID UDC PO SCH (08:00)
[2018-01-06] MEDS: Z GUARD REMEDY PASTE 57 GM TUBE TOP SCH ×2 (08:00→21:00)
[2018-01-06 10:58] VITALS: BP 102/44
--- NOTE | 2018-01-06 15:25 | NUR ---
PHARMACY CLINICAL NOTES: (VANCOMYCIN DOSING) S: 82 YO male; was on rocephine and BC + G+C; added Vancomycin(ID note:clinical sepsis with bacteremia) O: BUN/SCR(04/04.1) WBC 6.8 TEMP 98 BC + MRSA A/P : Will continue with Vancomycin 1 gm q20h,third dose today @ 0642; estimated peak of 38 and trough of 16. Will continue monitoring renal fxn and will order a level prior to 4th dose (ordered for tomorrow at 0300) and adjust the dose as needed.
[2018-01-06 15:30] VITALS: BP 160/49
[2018-01-06 20:00] VITALS: BP 109/49
--- NOTE | 2018-01-06 20:00 | NUR ---
Pt observed to be sitting up in bed, alert with at bedside. No s/s of acute distress noted at this time. Safe environment implemented.
[2018-01-06] MEDS: DOCUSATE SODIUM 100 MG CAPSULE PO SCH (20:46)
[2018-01-06] MEDS: TRAZODONE 50 MG TABLET PO SCH (20:46)
[2018-01-06] MEDS: ALFUZOSIN HCL 10 MG TAB.SR.24H PO SCH (20:47)
[2018-01-07] MEDS: CLONAZEPAM 0.5 MG TABLET PO PRN ×2 (00:09→23:56)
[2018-01-07 04:00] VITALS: BP 105/50
[2018-01-07 04:00] LABS: BASOPHILS # (AUTO) 0.1 K/uL (0.0-8.0); BASOPHILS % (AUTO) 0.8 % (0.0-2.0); EOSINOPHILS # (AUTO) 0.2 K/uL (0.0-0.7); EOSINOPHILS % (AUTO) 3.1 % (0.0-7.0); HEMATOCRIT 26.8 % (36.7-47.1); HEMOGLOBIN 8.9 g/dL (12.5-16.3); LYMPHOCYTES # (AUTO) 0.9 K/uL (20.0-40.0); LYMPHOCYTES % (AUTO) 12.4 % (20.5-51.5); MEAN CORPUSCULAR HEMOGLOBIN 30.2 uug (23.8-33.4); MEAN CORPUSCULAR HGB CONC 33 g/dL (32.5-36.3); MEAN CORPUSCULAR VOLUME 90.4 fL (73.0-96.2); MONOCYTES # (AUTO) 0.6 K/uL (2.0-10.0); MONOCYTES % (AUTO) 8.3 % (0.0-11.0); NEUTROPHILS # (AUTO) 5.6 K/uL (1.8-8.9); NEUTROPHILS % (AUTO) 75.4 % (38.5-71.5); PLATELET COUNT (AUTO) 268 K/uL (152-348); RED BLOOD CELL COUNT(AUTO) 2.96 MIL/uL (4.06-5.63); WHITE BLOOD COUNT (AUTO) 7.4 K/uL (3.6-10.2)
[2018-01-07 04:12] LABS: ALANINE AMINOTRANSFERASE 14 U/L (16-63); ALKALINE PHOSPHATASE 80 U/L (50-136); ASPARTATE AMINOTRANSFERASE 15 U/L (15-37); BILIRUBIN,TOTAL 0.4 mg/dL (0.2-1.0); CARBON DIOXIDE 24 mmol/L (21-32); CHLORIDE 107 mmol/L (98-107); GLUCOSE 103 mg/dL (74-106); MAGNESIUM 1.8 mg/dL (1.8-2.4); PHOSPHOROUS 2.7 mg/dL (2.5-4.9); TOTAL PROTEIN, SERUM 6.2 g/dL (6.4-8.2)
[2018-01-07] MEDS: VANCOMYCIN IV 1 G in PREMIXED 0 EACH IV SCH ×2 (04:26→20:00)
[2018-01-07 04:31] LABS: UREA NITROGEN, BLOOD 19 mg/dL (7-18)
--- NOTE | 2018-01-07 05:54 | NUR ---
Frequent reorientation provided. No s/s of acute distress noted. All needs attended to. Safe environment implemented. Call light within reach.
[2018-01-07] MEDS: PANTOPRAZOLE SODIUM 40 MG TABLET.DR PO SCH (06:15)
[2018-01-07] MEDS: PROTEIN SUPPLEMENT (PROSTAT) 30 ML LIQUID PO SCH ×3 (08:00→16:09)
[2018-01-07] MEDS: CLOPIDOGREL 75 MG TABLET PO SCH (08:02)
[2018-01-07] MEDS: Z GUARD REMEDY PASTE 57 GM TUBE TOP SCH ×2 (08:02→20:00)
[2018-01-07] MEDS: MEGESTROL ACETATE 400 MG/10 ML LIQUID UDC PO SCH (08:02)
[2018-01-07] MEDS: ASPIRIN EC 81 MG TABLET.DR PO SCH (08:02)
--- NOTE | 2018-01-07 09:28 | NUR ---
PHARMACY CLINICAL NOTES: (VANCOMYCIN DOSING) S: 82 YO male; was on rocephine and BC + G+C; added Vancomycin(ID note:clinical sepsis with bacteremia) O: BUN/SCR(19/1.0) WBC 7.4 TEMP 98.6 BC + MRSA trough: today @0349 10.5 A/P : Based on delayed trough and early admin of dose before, will change dosing to 1gm q16h with new estimated trough of 16.2, first dose tonight at 2030. Will order trough before 4th scheduled dose of new regimen. Will cont monitoring renal fxn and change schedule or dose per level if needed. Will follow
[2018-01-07 11:40] VITALS: BP 145/58
--- NOTE | 2018-01-07 13:55 | NUR ---
WOUND CARE CONSULT: PT PRESENTS WITH BRUISING AND SCABS TO LEFT ARM AND BLANCHABLE REDNESS TO SACRUM, PRESENT ON ADMISSION. PT ABLE TO ASSIST WITH TURNING AND REPOSITIONING IN BED. PT IS CONTINENT AT THIS TIME. CURRENT DAISY SCORE IS 15. WILL SEE PRN. SKIN PROTECTION RECOMMENDATIONS DISCUSSED WITH NURSING STAFF. MD IN AGREEMENT WITH PLAN OF CARE. Addendum: 01/07/18 at 1357 by PERRY MATHIAS RN Amended: Links added.
[2018-01-07 15:30] VITALS: BP 127/53
[2018-01-07 20:00] VITALS: BP 123/55
[2018-01-07] MEDS: DOCUSATE SODIUM 100 MG CAPSULE PO SCH (20:00)
[2018-01-07] MEDS: TRAZODONE 50 MG TABLET PO SCH (20:00)
[2018-01-07] MEDS: ALFUZOSIN HCL 10 MG TAB.SR.24H PO SCH (20:00)
--- NOTE | 2018-01-07 20:00 | NUR ---
Pt noted to be alert and disoriented to time and place. Reorientation and redirection provided. No s/s of acute distress noted at this time. Safe environment implemented. Call light within reach.
[2018-01-08 05:02] VITALS: BP 114/58
--- NOTE | 2018-01-08 06:25 | NUR ---
Pt remained confused and disoriented throught shift, slept intermittently. Frequent reorientation and redirection provided. Safe environment implemented. Call light within reach.
[2018-01-08] MEDS: PANTOPRAZOLE SODIUM 40 MG TABLET.DR PO SCH (06:51)
[2018-01-08] MEDS: PROTEIN SUPPLEMENT (PROSTAT) 30 ML LIQUID PO SCH ×3 (08:00→16:17)
[2018-01-08] MEDS: CLOPIDOGREL 75 MG TABLET PO SCH (08:07)
[2018-01-08] MEDS: ASPIRIN EC 81 MG TABLET.DR PO SCH (08:07)
[2018-01-08] MEDS: MEGESTROL ACETATE 400 MG/10 ML LIQUID UDC PO SCH (08:07)
[2018-01-08] MEDS: Z GUARD REMEDY PASTE 57 GM TUBE TOP SCH ×2 (08:07→21:41)
[2018-01-08 11:13] VITALS: BP 111/52
[2018-01-08] MEDS ORDERED: HALOPERIDOL LACTATE 5 MG/1 ML VIAL IM ONE (11:30)
[2018-01-08] MEDS ORDERED: LORAZEPAM 2 MG/1 ML VIAL IM ONE (11:30)
[2018-01-08] MEDS: VANCOMYCIN IV 1 G in PREMIXED 0 EACH IV SCH (13:04)
--- NOTE | 2018-01-08 14:09 | NUR ---
PHARMACY CLINICAL NOTES: (VANCOMYCIN DOSING) S: To continue vanco dosing for this 82 YO male patient clinical sepsis with bacteremia -per ID note O: BUN/SCR 19/1.0 (01/07) WBC 7.4 (01/07) TEMP 98.5 BC + MRSA ht 180 cm wt 61.2 kg A/P : Will continue same dose of 1gm IVPB q16h for today. 2nd dose due today at 1230. Will order trough before 4th scheduled dose of new regimen (not yet ordered). Will cont monitoring renal fxn and change schedule or dose per level if needed. Will follow
[2018-01-08 15:46] VITALS: BP 136/64
--- NOTE | 2018-01-08 19:10 | NUR ---
RECEIVED PT ASLEEP ON BED, NO SIGNS OF ACUTE DISTRESS NOTED AT THIS TIME. PICC LINE ON SHAHRAM, PATENT AND INTACT. SAFETY MEASURES INITIATED, PLACED BED ON LOW AND LOCKED POSITION WITH TWO SIDE RAILS UP. PT BELONGINGS AND CALL GARCIA WITHIN REACH.
[2018-01-08 19:15] VITALS: BP 105/41
[2018-01-08] MEDS: DOCUSATE SODIUM 100 MG CAPSULE PO SCH (21:40)
[2018-01-08] MEDS: ALFUZOSIN HCL 10 MG TAB.SR.24H PO SCH (21:40)
[2018-01-08] MEDS: TRAZODONE 50 MG TABLET PO SCH (21:40)
[2018-01-09 03:19] VITALS: BP 119/60
[2018-01-09] MEDS: VANCOMYCIN IV 1 G in PREMIXED 0 EACH IV SCH (04:13)
[2018-01-09] MEDS: PANTOPRAZOLE SODIUM 40 MG TABLET.DR PO SCH (06:00)
[2018-01-09 06:25] LABS: BASOPHILS # (AUTO) 0.1 K/uL (0.0-8.0); BASOPHILS % (AUTO) 0.9 % (0.0-2.0); EOSINOPHILS # (AUTO) 0.4 K/uL (0.0-0.7); EOSINOPHILS % (AUTO) 6.4 % (0.0-7.0); HEMATOCRIT 28.7 % (36.7-47.1); HEMOGLOBIN 9.6 g/dL (12.5-16.3); LYMPHOCYTES % (AUTO) 16.6 % (20.5-51.5); MEAN CORPUSCULAR HEMOGLOBIN 30.6 uug (23.8-33.4); MEAN CORPUSCULAR HGB CONC 34 g/dL (32.5-36.3); MEAN CORPUSCULAR VOLUME 91.5 fL (73.0-96.2); MONOCYTES # (AUTO) 0.5 K/uL (2.0-10.0); MONOCYTES % (AUTO) 9.4 % (0.0-11.0); NEUTROPHILS # (AUTO) 3.9 K/uL (1.8-8.9); NEUTROPHILS % (AUTO) 66.7 % (38.5-71.5); PLATELET COUNT (AUTO) 264 K/uL (152-348); RED BLOOD CELL COUNT(AUTO) 3.14 MIL/uL (4.06-5.63); WHITE BLOOD COUNT (AUTO) 5.8 K/uL (3.6-10.2)
--- NOTE | 2018-01-09 06:39 | NUR ---
PT RESTING COMFORTABLY ON BED, PLEASANTLY CONFUSED. REDIRECTION GIVEN. PICC LINE ON SHAHRAM, PATENT AND INTACT. ORDERED ATBS, TOLERATED WELL. PT HAS BEEN COMPLIANT WITH CARE. ALL NEEDS ATTENDED AND MET. SAFE ENVIRONMENT MAINTAINED AT ALL TIMES, CALL GARCIA WITHIN REACH.
[2018-01-09 06:41] LABS: CARBON DIOXIDE 23 mmol/L (21-32); CHLORIDE 106 mmol/L (98-107); GLUCOSE 95 mg/dL (74-106); MAGNESIUM 1.7 mg/dL (1.8-2.4); POTASSIUM 3.5 mmol/L (3.5-5.1); UREA NITROGEN, BLOOD 18 mg/dL (7-18)
[2018-01-09] MEDS: ASPIRIN EC 81 MG TABLET.DR PO SCH (08:08)
[2018-01-09] MEDS: MEGESTROL ACETATE 400 MG/10 ML LIQUID UDC PO SCH (08:08)
[2018-01-09] MEDS: CLOPIDOGREL 75 MG TABLET PO SCH (08:08)
[2018-01-09] MEDS: Z GUARD REMEDY PASTE 57 GM TUBE TOP SCH (08:09)
[2018-01-09] MEDS: PROTEIN SUPPLEMENT (PROSTAT) 30 ML LIQUID PO SCH ×2 (08:09→12:27)
[2018-01-09] MEDS ORDERED: MUPIROCIN 2% OINT 22 GM TUBE NS SCH (10:30)
[2018-01-09] MEDS ORDERED: RXVAN XX (10:35)
[2018-01-09 11:11] VITALS: BP 112/48
--- NOTE | 2018-01-09 13:05 | NUR ---
patient instructed on discharge, patient will be discharged to [facility], patient to continue IV Antibiotics, , Loli,Present on discharge , instructed on discharge and follow up care at facility, patient to be discharged with PICC line on right upper extremity, patient photos taken on discharge, belongings returned and accounted form, questions and concerns addressed. Report given to ANALY Forrest at [facility].
--- NOTE | 2018-01-09 13:05 | NUR ---
patient stable on discharge no distress, remains on isolation Facility aware.
[2018-01-09] MEDS ORDERED: ENSURE ENLIVE (VAN) 240 ML LIQUID PO SCH (17:00)
[2018-01-11 11:50] VITALS: BP 170/91
== END 2018-01-09 13:06 | DRG 871 ==
LOC: ER 11:59 → TELE 16:28 → MED 01-05 11:25
PROVIDERS: ADMIT Internal Medicine; ATTEND Internal Medicine
PROC: 02HV33Z Insertion of Infusion Device into Superior Vena Cava, Percutaneous Approach (ICD-10-PCS; principal; 2018-01-08)
DX: A41.02 Sepsis due to Methicillin resistant Staphylococcus aureus (principal); N17.0 Acute kidney failure with tubular necrosis; E43 Unspecified severe protein-calorie malnutrition; N39.0 Urinary tract infection, site not specified; Z68.1 Body mass index [BMI] 19.9 or less, adult; D68.59 Other primary thrombophilia; I50.32 Chronic diastolic (congestive) heart failure; Z85.810 Personal history of malignant neoplasm of tongue; Z87.440 Personal history of urinary (tract) infections; R13.10 Dysphagia, unspecified; R29.6 Repeated falls; Z91.81 History of falling; Z96.643 Presence of artificial hip joint, bilateral; G30.9 Alzheimer's disease, unspecified; F02.80 Dementia in other diseases classified elsewhere, unspecified severity, without behavioral disturbance, psychotic disturbance, mood disturbance, and anxiety; M75.102 Unspecified rotator cuff tear or rupture of left shoulder, not specified as traumatic; M19.011 Primary osteoarthritis, right shoulder; E83.42 Hypomagnesemia; I73.9 Peripheral vascular disease, unspecified; D64.9 Anemia, unspecified; Z74.09 Other reduced mobility; E78.5 Hyperlipidemia, unspecified; Z87.01 Personal history of pneumonia (recurrent); N40.0 Benign prostatic hyperplasia without lower urinary tract symptoms; M48.00 Spinal stenosis, site unspecified
CPT/HCPCS: 36415; 70030-TC; 70450; 71045; 73030; 73110; 73200; 83605; 83735; 84100; 84153; 85025; 85730; 87040; 87077; 87086; 87400; 93005; 93307; 97110; 97116; 97530; A4663; A9150; C1751; C1758; G0378; J0696; J1450; J1630; J2060; J2248; J2270; J2405; J3370; J3490; J7030; J7060; J8499; J8999

== ENCOUNTER 2018-04-15 16:03 | Emergency (ER) | payer MEDICARE, BC ==
[~2018-04-15] VITALS: Ht 177.8 cm; Wt 67.1 kg
[~2018-04-15 16:03] MED LIST changes: +ASPI81TA31 PO; +ATOR80TA PO; -CLON0.5T12 PO; +CLOP75TA15 PO; +ESCI20TA PO; -LACT1CAP57 PO; +METO-356 PO; +MIRT45TA83 PO; -PIPE3.379 IV; +RXVAN XX
--- NOTE | 2018-04-15 17:24 | NUR ---
PT IS IN ROOM #1B. DR MAJANO EVALUATED THE PT.
[2018-04-15] MEDS ORDERED: LORAZEPAM 2 MG/1 ML VIAL IM ONE (18:15)
[2018-04-15] MEDS ORDERED: ONDANSETRON 4 MG/2 ML VIAL IM ONE (18:15)
[2018-04-15] MEDS ORDERED: MORPHINE SULFATE 4 MG/1 ML DISP.SYRIN IM ONE (18:15)
[2018-04-15] MEDS ORDERED: diphenhydrAMINE 50 MG/1 ML VIAL IM ONE (18:15)
--- NOTE | 2018-04-15 18:42 | NUR ---
PT WAS D/C'd TO HOME AFTER ER MD RE-EVALUATION. D/C INSTRUCTIONS GIVEN TO THE PT.
[2018-04-15 18:44] VITALS: BP 137/84
== END 2018-04-15 18:45 | disposition home or self-care (01) ==
LOC: ER 16:03
DX: S20.212A Contusion of left front wall of thorax, initial encounter (principal); S09.90XA Unspecified injury of head, initial encounter; E78.5 Hyperlipidemia, unspecified; Z79.82 Long term (current) use of aspirin; Z79.01 Long term (current) use of anticoagulants; Z79.899 Other long term (current) drug therapy; W18.30XA Fall on same level, unspecified, initial encounter; Y93.89 Activity, other specified; Y92.89 Other specified places as the place of occurrence of the external cause; Y99.8 Other external cause status
CPT/HCPCS: 70450; 71250; A4663

== ENCOUNTER 2018-05-06 19:30 | Emergency (ER) | payer MEDICARE, BC ==
[~2018-05-06] VITALS: Ht 172.7 cm; Wt 74.8 kg
--- NOTE | 2018-05-06 19:53 | NUR ---
Dr. Hravey at bedside for MSE.
--- NOTE | 2018-05-06 20:02 | NUR ---
Patient does not wish to proceed with medical care recommended by Dr. Harvey. Patient given information related to possible complications, up to and including , which could occur as a result of leaving the hospital at this time. Patient verbalizes understanding of risks involved due to leaving against medical advice. Patient has signed AMA form.
[2018-05-06 20:03] VITALS: BP 140/69
== END 2018-05-06 20:03 | disposition left against medical advice (07) ==
LOC: ER 19:30
DX: Z00.00 Encounter for general adult medical examination without abnormal findings (principal); E78.5 Hyperlipidemia, unspecified; Z79.899 Other long term (current) drug therapy; Z79.82 Long term (current) use of aspirin; Z79.01 Long term (current) use of anticoagulants; Z79.891 Long term (current) use of opiate analgesic
CPT/HCPCS: 93005; A4663

== ENCOUNTER 2018-07-28 10:21 | Inpatient (IN) | payer MEDICARE, BC ==
[~2018-07-28] VITALS: Ht 172.7 cm; Wt 59.0 kg
[2018-07-28] MEDS ORDERED: IV NORMAL SALINE 1000 ML BAG IV ONE (10:45)
[2018-07-28] MEDS ORDERED: CEFTRIAXONE 1 G in IV DEXTROSE 5% 50 ML IV ONE (10:45)
[2018-07-28] MEDS ORDERED: GENTAMICIN SULFATE INJ 80 MG in IV DEXTROSE 5% 100 ML IV ONE (10:45)
[2018-07-28] MEDS ORDERED: LIDOCAINE 2% (UROJET) 10 ML JELLY MM ONE ×2 (10:49→11:30)
[2018-07-28] MEDS ORDERED: METO25TA6 PO (10:59)
[2018-07-28] MEDS ORDERED: DOCU-141 PO (10:59)
[2018-07-28] MEDS ORDERED: CEFTRIAXONE 1 G VIAL ONE (11:05)
[2018-07-28] MEDS ORDERED: GENTAMICIN SULFATE 80 MG/2 ML VIAL ONE (11:05)
[2018-07-28 11:09] LABS: BASOPHILS # (AUTO) 0.1 K/uL (0.0-8.0); EOSINOPHILS # (AUTO) 0.3 K/uL (0.0-0.7); EOSINOPHILS % (AUTO) 4.2 % (0.0-7.0); HEMATOCRIT 31.1 % (36.7-47.1); HEMOGLOBIN 10.3 g/dL (12.5-16.3); LYMPHOCYTES # (AUTO) 0.9 K/uL (20.0-40.0); MEAN CORPUSCULAR HEMOGLOBIN 29.9 uug (23.8-33.4); MEAN CORPUSCULAR HGB CONC 33 g/dL (32.5-36.3); MEAN CORPUSCULAR VOLUME 89.8 fL (73.0-96.2); MONOCYTES # (AUTO) 0.7 K/uL (2.0-10.0); MONOCYTES % (AUTO) 8.7 % (0.0-11.0); NEUTROPHILS % (AUTO) 75.1 % (38.5-71.5); PLATELET COUNT (AUTO) 258 K/uL (152-348); RED BLOOD CELL COUNT(AUTO) 3.46 MIL/uL (4.06-5.63)
[2018-07-28 11:17] LABS: CARBON DIOXIDE 23 mmol/L (21-32); CHLORIDE 110 mmol/L (98-107); CREATININE 0.9 mg/dL (0.6-1.3); GLUCOSE 92 mg/dL (74-106); POTASSIUM 3.8 mmol/L (3.5-5.1); UREA NITROGEN, BLOOD 18 mg/dL (7-18)
[2018-07-28 11:28] LABS: ALANINE AMINOTRANSFERASE 75 U/L (16-63); ALKALINE PHOSPHATASE 85 U/L (50-136); ASPARTATE AMINOTRANSFERASE 72 U/L (15-37); BILIRUBIN,DIRECT 0.4 mg/dL (0.0-0.2); BILIRUBIN,TOTAL 1.1 mg/dL (0.2-1.0); TOTAL PROTEIN, SERUM 5.9 g/dL (6.4-8.2)
[2018-07-28] MEDS ORDERED: MORPHINE SULFATE 4 MG/1 ML DISP.SYRIN IV ONE (11:30)
[2018-07-28] MEDS ORDERED: ONDANSETRON IV *ER 4 MG/2 ML VIAL IV ONE (11:30)
[2018-07-28] MEDS ORDERED: MAGN400O6 PO (11:31)
[2018-07-28] MEDS ORDERED: SENN-168 PO (11:31)
[2018-07-28] MEDS ORDERED: BISA10SU8 RC (11:31)
[2018-07-28] MEDS ORDERED: MEGE400O2 PO (11:31)
[2018-07-28] MEDS ORDERED: NA P133E RC (11:31)
[2018-07-28] MEDS ORDERED: TAMS-3 PO (11:31)
[2018-07-28] MEDS ORDERED: MULT1TAB73 PO (11:31)
[2018-07-28] MEDS ORDERED: QUET25TA PO (11:31)
[2018-07-28] MEDS ORDERED: CHOL100045 PO (11:31)
[2018-07-28] MEDS ORDERED: LEVO75TA7 PO (11:31)
[2018-07-28] MEDS ORDERED: MELA5TAB PO (11:31)
[2018-07-28] MEDS ORDERED: ONDANSETRON 4 MG/2 ML VIAL ONE (11:38)
[2018-07-28] MEDS ORDERED: MORPHINE SULFATE 4 MG/1 ML DISP.SYRIN ONE (11:38)
[2018-07-28 12:06] LABS: *BILIRUBIN,URIN NEGATIVE (NEGATIVE); *CLARITY,URINE CLOUDY (CLEAR); *COLOR,URINE RED (YELLOW); *KETONES,URINE NEGATIVE (NEGATIVE); *UROBILINOGEN,URINE 0.2 E.U./dl (NORMAL); LEUKOCYTE ESTERASE ,URINE NEGATIVE (NEGATIVE); NITRITE, URINE NEGATIVE (NEGATIVE); PH,URINE 5.5 (5.0-8.0); UGLUCOSE NEGATIVE (NEGATIVE)
[2018-07-28 12:09] LABS: *BLOOD, URINE 4+ (NEGATIVE)
[2018-07-28 12:12] LABS: BACTERIA,URINE FEW /HPF (NONE SEEN); RBC,URINE TNTC /HPF (0-3); SQUAMOUS EPITHELIAL CELL,UR FEW /HPF (NONE SEEN)
[2018-07-28 13:30] VITALS: BP 141/56
[2018-07-28] MEDS ORDERED: ONDANSETRON 4 MG/2 ML VIAL IV PRN (14:00)
[2018-07-28] MEDS ORDERED: ACETAMINOPHEN 325 MG TABLET PO PRN (14:00)
[2018-07-28] MEDS ORDERED: BISACODYL 10 MG SUPP.RECT RC SCH (14:00)
[2018-07-28] MEDS ORDERED: MAGNESIUM HYDROXIDE 30 ML LIQUID UDC PO PRN (14:00)
[2018-07-28] MEDS ORDERED: Medication Not On Formulary EA (Melatonin 5 MG) PO SCH (14:00)
[2018-07-28] MEDS ORDERED: Z GUARD REMEDY PASTE 57 GM TUBE TOP PRN (14:00)
[2018-07-28] MEDS ORDERED: FLEET ENEMA 133 ML BOTTLE RC PRN (14:00)
[2018-07-28] MEDS ORDERED: MELATONIN 3 MG TABLET PO PRN (14:15)
[2018-07-28 16:15] VITALS: BP 113/61
[2018-07-28] MEDS: DOCUSATE SODIUM 100 MG CAPSULE PO SCH (17:00)
[2018-07-28] MEDS: SENNOSIDES 1 TABLET PO SCH (17:00)
[2018-07-28 19:56] VITALS: BP 137/67
[2018-07-28] MEDS: QUETIAPINE FUMARATE 25 MG TABLET PO SCH (20:29)
[2018-07-28] MEDS: METOPROLOL TARTRATE 25 MG TABLET PO SCH (20:29)
[2018-07-28] MEDS: TAMSULOSIN HCL 0.4 MG CAP.SR.24H PO SCH (20:29)
[2018-07-29 04:21] VITALS: BP 121/59
[2018-07-29] MEDS: LEVOTHYROXINE SODIUM 75 MCG TABLET PO SCH (06:08)
[2018-07-29 06:54] LABS: BASOPHILS # (AUTO) 0.1 K/uL (0.0-8.0); BASOPHILS % (AUTO) 0.4 % (0.0-2.0); EOSINOPHILS % (AUTO) 0.3 % (0.0-7.0); HEMATOCRIT 31.1 % (36.7-47.1); HEMOGLOBIN 10.1 g/dL (12.5-16.3); LYMPHOCYTES # (AUTO) 0.8 K/uL (20.0-40.0); LYMPHOCYTES % (AUTO) 5.3 % (20.5-51.5); MEAN CORPUSCULAR HEMOGLOBIN 29.4 uug (23.8-33.4); MEAN CORPUSCULAR HGB CONC 32 g/dL (32.5-36.3); MEAN CORPUSCULAR VOLUME 90.8 fL (73.0-96.2); MONOCYTES # (AUTO) 1.3 K/uL (2.0-10.0); MONOCYTES % (AUTO) 8.8 % (0.0-11.0); NEUTROPHILS # (AUTO) 12.4 K/uL (1.8-8.9); NEUTROPHILS % (AUTO) 85.2 % (38.5-71.5); PLATELET COUNT (AUTO) 322 K/uL (152-348); RED BLOOD CELL COUNT(AUTO) 3.43 MIL/uL (4.06-5.63); WHITE BLOOD COUNT (AUTO) 14.6 K/uL (3.6-10.2)
[2018-07-29 07:09] LABS: CARBON DIOXIDE 17 mmol/L (21-32); CHLORIDE 108 mmol/L (98-107); CREATININE 2.2 mg/dL (0.6-1.3); GLUCOSE 79 mg/dL (74-106); POTASSIUM 3.9 mmol/L (3.5-5.1); UREA NITROGEN, BLOOD 27 mg/dL (7-18)
[2018-07-29 07:10] LABS: ALANINE AMINOTRANSFERASE 70 U/L (16-63); ALKALINE PHOSPHATASE 81 U/L (50-136); ASPARTATE AMINOTRANSFERASE 56 U/L (15-37); BILIRUBIN,DIRECT 0.3 mg/dL (0.0-0.2); CHOLESTEROL 77 mg/dL (<200); HDL CHOLESTEROL 18 mg/dL (40-60); MAGNESIUM 1.6 mg/dL (1.8-2.4); PHOSPHOROUS 4.1 mg/dL (2.5-4.9); TRIGLYCERIDES 59 MG/DL (30-150)
[2018-07-29 07:50] VITALS: BP 146/60
[2018-07-29] MEDS ORDERED: Medication Not On Formulary EA (Multivitamins (Multivitamin) 1 TAB) PO SCH (09:00)
[2018-07-29] MEDS: DOCUSATE SODIUM 100 MG CAPSULE PO SCH ×2 (09:29→17:12)
[2018-07-29] MEDS: CHOLECALCIFEROL 1,000 UNIT TABLET PO SCH (09:29)
[2018-07-29] MEDS: MULTIVITAMINS,THERAPEUTIC TABLET PO SCH (09:29)
[2018-07-29] MEDS: SENNOSIDES 1 TABLET PO SCH ×2 (09:29→17:12)
[2018-07-29] MEDS: METOPROLOL TARTRATE 25 MG TABLET PO SCH ×2 (09:33→21:02)
[2018-07-29] MEDS: HYDROCODONE/APAP 5-325MG TABLET PO PRN (09:33)
[2018-07-29] MEDS: MEGESTROL ACETATE 400 MG/10 ML LIQUID UDC PO SCH (09:35)
[2018-07-29] MEDS ORDERED: MAGNESIUM OXIDE 400 MG TABLET PO ONE (11:30)
[2018-07-29] MEDS: IV NS 1000 ML 1,000 ML IV PRN (12:40)
[2018-07-29 12:45] VITALS: BP 122/48
[2018-07-29 16:10] VITALS: BP 130/59
[2018-07-29] MEDS: TAMSULOSIN HCL 0.4 MG CAP.SR.24H PO SCH (21:01)
[2018-07-29] MEDS: QUETIAPINE FUMARATE 25 MG TABLET PO SCH (21:01)
[2018-07-30] MEDS: IV NS 1000 ML 1,000 ML IV PRN (03:13)
[2018-07-30 05:55] VITALS: BP 143/59
[2018-07-30] MEDS: LEVOTHYROXINE SODIUM 75 MCG TABLET PO SCH (06:25)
[2018-07-30 07:08] LABS: CARBON DIOXIDE 21 mmol/L (21-32); CHLORIDE 117 mmol/L (98-107); CREATININE 1.5 mg/dL (0.6-1.3); GLUCOSE 83 mg/dL (74-106); MAGNESIUM 1.8 mg/dL (1.8-2.4); POTASSIUM 3.8 mmol/L (3.5-5.1); UREA NITROGEN, BLOOD 30 mg/dL (7-18)
[2018-07-30 07:24] LABS: EOSINOPHILS # (AUTO) 0.3 K/uL (0.0-0.7); LYMPHOCYTES # (AUTO) 0.7 K/uL (20.0-40.0); MEAN CORPUSCULAR HEMOGLOBIN 30.1 uug (23.8-33.4); MONOCYTES # (AUTO) 0.8 K/uL (2.0-10.0); NEUTROPHILS # (AUTO) 6.4 K/uL (1.8-8.9); RED BLOOD CELL COUNT(AUTO) 2.99 MIL/uL (4.06-5.63)
[2018-07-30 07:37] LABS: BASOPHILS % (AUTO) 0.4 % (0.0-2.0); LYMPHOCYTES % (AUTO) 8.4 % (20.5-51.5); MEAN CORPUSCULAR HGB CONC 33 g/dL (32.5-36.3); MEAN CORPUSCULAR VOLUME 90.6 fL (73.0-96.2); MONOCYTES % (AUTO) 9.3 % (0.0-11.0); NEUTROPHILS % (AUTO) 77.9 % (38.5-71.5)
[2018-07-30 07:39] LABS: WHITE BLOOD COUNT (AUTO) 8.2 K/uL (3.6-10.2)
[2018-07-30 07:40] LABS: HEMATOCRIT 27.1 % (36.7-47.1); PLATELET COUNT (AUTO) 235 K/uL (152-348)
[2018-07-30 08:00] VITALS: BP 131/47
[2018-07-30] MEDS: MULTIVITAMINS,THERAPEUTIC TABLET PO SCH (09:10)
[2018-07-30] MEDS: DOCUSATE SODIUM 100 MG CAPSULE PO SCH ×2 (09:10→16:27)
[2018-07-30] MEDS: SENNOSIDES 1 TABLET PO SCH ×2 (09:10→16:27)
[2018-07-30] MEDS: CHOLECALCIFEROL 1,000 UNIT TABLET PO SCH (09:10)
[2018-07-30] MEDS: CLOPIDOGREL 75 MG TABLET PO SCH (09:10)
[2018-07-30] MEDS: METOPROLOL TARTRATE 25 MG TABLET PO SCH ×2 (09:11→21:00)
[2018-07-30] MEDS: MEGESTROL ACETATE 400 MG/10 ML LIQUID UDC PO SCH (09:11)
[2018-07-30 11:30] VITALS: BP 116/42
[2018-07-30] MEDS: IV 1/2NS 1000 ML 1,000 ML IV PRN (12:40)
[2018-07-30 15:32] VITALS: BP 118/43
[2018-07-30 20:51] VITALS: BP 119/45
[2018-07-30] MEDS: MUPIROCIN 2% OINT 22 GM TUBE NS SCH (20:59)
[2018-07-30] MEDS: QUETIAPINE FUMARATE 25 MG TABLET PO SCH (20:59)
[2018-07-30] MEDS: TAMSULOSIN HCL 0.4 MG CAP.SR.24H PO SCH (21:00)
[2018-07-30] MEDS ORDERED: CEFTRIAXONE 1 G VIAL ONE (21:32)
[2018-07-30] MEDS: CEFTRIAXONE 1 G in IV DEXTROSE 5% 50 ML IV SCH (21:56)
[2018-07-31] MEDS: IV 1/2NS 1000 ML 1,000 ML IV PRN ×2 (01:59→16:11)
[2018-07-31 06:06] VITALS: BP 114/48
[2018-07-31] MEDS: LEVOTHYROXINE SODIUM 75 MCG TABLET PO SCH (06:55)
[2018-07-31 07:32] LABS: BASOPHILS % (AUTO) 0.6 % (0.0-2.0); EOSINOPHILS # (AUTO) 0.3 K/uL (0.0-0.7); EOSINOPHILS % (AUTO) 5.1 % (0.0-7.0); HEMATOCRIT 26.9 % (36.7-47.1); HEMOGLOBIN 8.8 g/dL (12.5-16.3); LYMPHOCYTES % (AUTO) 15.2 % (20.5-51.5); MEAN CORPUSCULAR HEMOGLOBIN 29.9 uug (23.8-33.4); MEAN CORPUSCULAR HGB CONC 33 g/dL (32.5-36.3); MEAN CORPUSCULAR VOLUME 91.6 fL (73.0-96.2); MONOCYTES # (AUTO) 0.6 K/uL (2.0-10.0); MONOCYTES % (AUTO) 9.9 % (0.0-11.0); NEUTROPHILS # (AUTO) 4.4 K/uL (1.8-8.9); NEUTROPHILS % (AUTO) 69.2 % (38.5-71.5); PLATELET COUNT (AUTO) 218 K/uL (152-348); RED BLOOD CELL COUNT(AUTO) 2.93 MIL/uL (4.06-5.63); WHITE BLOOD COUNT (AUTO) 6.4 K/uL (3.6-10.2)
[2018-07-31 07:45] LABS: ALANINE AMINOTRANSFERASE 39 U/L (16-63); ALKALINE PHOSPHATASE 64 U/L (50-136); ASPARTATE AMINOTRANSFERASE 36 U/L (15-37); BILIRUBIN,TOTAL 0.4 mg/dL (0.2-1.0); CARBON DIOXIDE 19 mmol/L (21-32); CHLORIDE 114 mmol/L (98-107); GLUCOSE 92 mg/dL (74-106); MAGNESIUM 1.3 mg/dL (1.8-2.4); PHOSPHOROUS 2.8 mg/dL (2.5-4.9); POTASSIUM 3.3 mmol/L (3.5-5.1); TOTAL PROTEIN, SERUM 4.8 g/dL (6.4-8.2); UREA NITROGEN, BLOOD 23 mg/dL (7-18)
[2018-07-31 08:00] VITALS: BP 129/39
[2018-07-31] MEDS: CHOLECALCIFEROL 1,000 UNIT TABLET PO SCH (08:00)
[2018-07-31] MEDS: DOCUSATE SODIUM 100 MG CAPSULE PO SCH ×2 (08:00→16:11)
[2018-07-31] MEDS: CLOPIDOGREL 75 MG TABLET PO SCH (08:00)
[2018-07-31] MEDS: MUPIROCIN 2% OINT 22 GM TUBE NS SCH ×2 (08:01→20:55)
[2018-07-31] MEDS: SENNOSIDES 1 TABLET PO SCH ×2 (08:01→16:11)
[2018-07-31] MEDS: MEGESTROL ACETATE 400 MG/10 ML LIQUID UDC PO SCH (08:01)
[2018-07-31] MEDS: MULTIVITAMINS,THERAPEUTIC TABLET PO SCH (08:01)
[2018-07-31] MEDS: METOPROLOL TARTRATE 25 MG TABLET PO SCH ×2 (08:02→20:56)
[2018-07-31] MEDS ORDERED: POTASSIUM CHLORIDE 20 MEQ TAB.PRT.SR PO ONE (09:00)
[2018-07-31] MEDS: PROTEIN SUPPLEMENT (PROSTAT) 30 ML LIQUID PO SCH ×3 (09:15→16:11)
[2018-07-31] MEDS: MAGNESIUM SULFATE/D5W 100 ML IV SCH ×2 (09:29→10:45)
[2018-07-31 11:06] VITALS: BP 114/45
[2018-07-31 15:16] VITALS: BP 119/46
[2018-07-31 20:00] VITALS: BP 120/59
[2018-07-31] MEDS: QUETIAPINE FUMARATE 25 MG TABLET PO SCH (20:55)
[2018-07-31] MEDS: TAMSULOSIN HCL 0.4 MG CAP.SR.24H PO SCH (20:55)
[2018-07-31] MEDS: CEFTRIAXONE 1 G in IV DEXTROSE 5% 50 ML IV SCH (21:01)
[2018-08-01 05:58] VITALS: BP 122/54
[2018-08-01] MEDS: LEVOTHYROXINE SODIUM 75 MCG TABLET PO SCH (06:04)
[2018-08-01] MEDS: IV 1/2NS 1000 ML 1,000 ML IV PRN (06:57)
[2018-08-01 07:34] LABS: BASOPHILS % (AUTO) 0.8 % (0.0-2.0); EOSINOPHILS # (AUTO) 0.3 K/uL (0.0-0.7); HEMATOCRIT 26.4 % (36.7-47.1); HEMOGLOBIN 8.9 g/dL (12.5-16.3); LYMPHOCYTES # (AUTO) 0.9 K/uL (20.0-40.0); LYMPHOCYTES % (AUTO) 16.9 % (20.5-51.5); MEAN CORPUSCULAR HGB CONC 34 g/dL (32.5-36.3); MEAN CORPUSCULAR VOLUME 88.7 fL (73.0-96.2); MONOCYTES # (AUTO) 0.5 K/uL (2.0-10.0); MONOCYTES % (AUTO) 9.6 % (0.0-11.0); NEUTROPHILS # (AUTO) 3.6 K/uL (1.8-8.9); NEUTROPHILS % (AUTO) 66.7 % (38.5-71.5); PLATELET COUNT (AUTO) 250 K/uL (152-348); RED BLOOD CELL COUNT(AUTO) 2.97 MIL/uL (4.06-5.63); WHITE BLOOD COUNT (AUTO) 5.5 K/uL (3.6-10.2)
[2018-08-01 07:48] LABS: ALANINE AMINOTRANSFERASE 34 U/L (16-63); ALKALINE PHOSPHATASE 67 U/L (50-136); ASPARTATE AMINOTRANSFERASE 29 U/L (15-37); BILIRUBIN,TOTAL 0.5 mg/dL (0.2-1.0); CARBON DIOXIDE 21 mmol/L (21-32); CHLORIDE 110 mmol/L (98-107); CREATININE 0.8 mg/dL (0.6-1.3); GLUCOSE 83 mg/dL (74-106); MAGNESIUM 1.4 mg/dL (1.8-2.4); PHOSPHOROUS 2.6 mg/dL (2.5-4.9); POTASSIUM 3.7 mmol/L (3.5-5.1); UREA NITROGEN, BLOOD 15 mg/dL (7-18)
[2018-08-01 08:14] VITALS: BP 134/53
[2018-08-01] MEDS: PROTEIN SUPPLEMENT (PROSTAT) 30 ML LIQUID PO SCH ×3 (08:44→17:00)
[2018-08-01] MEDS: DOCUSATE SODIUM 100 MG CAPSULE PO SCH ×2 (08:45→17:40)
[2018-08-01] MEDS: METOPROLOL TARTRATE 25 MG TABLET PO SCH (08:45)
[2018-08-01] MEDS: MEGESTROL ACETATE 400 MG/10 ML LIQUID UDC PO SCH (08:46)
[2018-08-01] MEDS: CHOLECALCIFEROL 1,000 UNIT TABLET PO SCH (08:46)
[2018-08-01] MEDS: MULTIVITAMINS,THERAPEUTIC TABLET PO SCH (08:46)
[2018-08-01] MEDS: SENNOSIDES 1 TABLET PO SCH ×2 (08:46→17:40)
[2018-08-01] MEDS: MUPIROCIN 2% OINT 22 GM TUBE NS SCH (08:46)
[2018-08-01] MEDS: CLOPIDOGREL 75 MG TABLET PO SCH (08:46)
[2018-08-01 12:00] VITALS: BP 117/42
[2018-08-01] MEDS ORDERED: POTASSIUM CHLORIDE 20 MEQ TAB.PRT.SR PO ONE (13:00)
[2018-08-01] MEDS ORDERED: MAGNESIUM OXIDE 400 MG TABLET PO ONE (13:00)
[2018-08-01] MEDS ORDERED: LEVO88TA5 PO (15:11)
[2018-08-01] MEDS ORDERED: MUPI22OI2 NS (15:11)
[2018-08-01] MEDS ORDERED: Magnesium Oxide PO (15:11)
[2018-08-01] MEDS ORDERED: ATOR10TA PO (15:11)
[2018-08-01] MEDS ORDERED: TAMS-3 PO (15:11)
[2018-08-01] MEDS ORDERED: PROT30LI PO (15:11)
[2018-08-01] MEDS ORDERED: ACID1TAB4 PO (15:11)
[2018-08-01] MEDS ORDERED: CEFT1VIA15 IV (15:11)
[2018-08-01] MEDS ORDERED: MENT71OI TOP (15:11)
[2018-08-01] MEDS ORDERED: METO25TA6 PO (15:11)
[2018-08-01 16:22] VITALS: BP 105/49
[2018-08-01] MEDS: HYDROCODONE/APAP 5-325MG TABLET PO PRN (17:41)
[2018-08-01] MEDS ORDERED: MAGNESIUM OXIDE 400 MG TABLET PO SCH (21:00)
== END 2018-08-01 19:25 | DRG 871 ==
LOC: ER 10:21 → MEDSURG3 12:58
PROVIDERS: ADMIT Nurse Practitioner Acute Care; ATTEND Nurse Practitioner Acute Care
PROC: 0T2BX0Z Change Drainage Device in Bladder, External Approach (ICD-10-PCS; principal; 2018-07-28)
PROC: 3E1K78Z Irrigation of Genitourinary Tract using Irrigating Substance, Via Natural or Artificial Opening (ICD-10-PCS; 2018-07-28)
DX: A41.9 Sepsis, unspecified organism (principal); N17.0 Acute kidney failure with tubular necrosis; E43 Unspecified severe protein-calorie malnutrition; G93.41 Metabolic encephalopathy; N13.8 Other obstructive and reflux uropathy; N13.30 Unspecified hydronephrosis; D68.59 Other primary thrombophilia; I50.32 Chronic diastolic (congestive) heart failure; N39.0 Urinary tract infection, site not specified; R64 Cachexia; Z68.1 Body mass index [BMI] 19.9 or less, adult; D62 Acute posthemorrhagic anemia; R31.0 Gross hematuria; T83.021A Displacement of indwelling urethral catheter, initial encounter; R65.20 Severe sepsis without septic shock; Y73.8 Miscellaneous gastroenterology and urology devices associated with adverse incidents, not elsewhere classified; Y92.129 Unspecified place in nursing home as the place of occurrence of the external cause; N40.1 Benign prostatic hyperplasia with lower urinary tract symptoms; F03.90 Unspecified dementia, unspecified severity, without behavioral disturbance, psychotic disturbance, mood disturbance, and anxiety; Z68.21 Body mass index [BMI] 21.0-21.9, adult; I69.328 Other speech and language deficits following cerebral infarction; Z85.810 Personal history of malignant neoplasm of tongue; I25.2 Old myocardial infarction; Z85.89 Personal history of malignant neoplasm of other organs and systems; Z22.322 Carrier or suspected carrier of Methicillin resistant Staphylococcus aureus; G30.9 Alzheimer's disease, unspecified; F02.80 Dementia in other diseases classified elsewhere, unspecified severity, without behavioral disturbance, psychotic disturbance, mood disturbance, and anxiety; E83.42 Hypomagnesemia; E87.6 Hypokalemia; E78.5 Hyperlipidemia, unspecified; E03.9 Hypothyroidism, unspecified; I25.10 Atherosclerotic heart disease of native coronary artery without angina pectoris; I73.9 Peripheral vascular disease, unspecified; F32.9 Major depressive disorder, single episode, unspecified; Z96.643 Presence of artificial hip joint, bilateral; Z87.440 Personal history of urinary (tract) infections; Z79.899 Other long term (current) drug therapy; Z79.02 Long term (current) use of antithrombotics/antiplatelets; K76.0 Fatty (change of) liver, not elsewhere classified; R91.8 Other nonspecific abnormal finding of lung field; R26.81 Unsteadiness on feet; R29.6 Repeated falls; M48.00 Spinal stenosis, site unspecified; M19.90 Unspecified osteoarthritis, unspecified site; Z87.01 Personal history of pneumonia (recurrent); N18.9 Chronic kidney disease, unspecified; D63.8 Anemia in other chronic diseases classified elsewhere
CPT/HCPCS: 36415; 70030-TC; 71045; 76700; 83605; 83735; 84100; 84443; 85025; 85730; 87040; 87086; 92526; 92610; 93005; A4217; A4663; G0378; J0696; J1580; J2270; J2405; J3475; J3490; J7030; J7060; J8999

== ENCOUNTER 2018-11-13 18:50 | Inpatient (IN) | payer MEDICARE, BC ==
[~2018-11-13] VITALS: Ht 180.3 cm; Wt 60.1 kg
[2018-11-20 10:58] VITALS: BP 91/49
== END 2018-11-20 17:45 | DRG 871 ==
LOC: ER 18:53 → TELE3 22:18 → MEDSURG3 11-14 13:00
PROVIDERS: ADMIT Registered Nurse; ATTEND Internal Medicine
DX: A41.9 Sepsis, unspecified organism (principal); N17.0 Acute kidney failure with tubular necrosis; J69.0 Pneumonitis due to inhalation of food and vomit; G92 Toxic encephalopathy; I21.A1 Myocardial infarction type 2; E43 Unspecified severe protein-calorie malnutrition; I50.33 Acute on chronic diastolic (congestive) heart failure; J96.01 Acute respiratory failure with hypoxia; N39.0 Urinary tract infection, site not specified; Z68.1 Body mass index [BMI] 19.9 or less, adult; D68.59 Other primary thrombophilia; J98.11 Atelectasis; E87.1 Hypo-osmolality and hyponatremia; Z96.643 Presence of artificial hip joint, bilateral; G30.9 Alzheimer's disease, unspecified; F02.80 Dementia in other diseases classified elsewhere, unspecified severity, without behavioral disturbance, psychotic disturbance, mood disturbance, and anxiety; N40.0 Benign prostatic hyperplasia without lower urinary tract symptoms; M48.00 Spinal stenosis, site unspecified; D64.9 Anemia, unspecified; E78.5 Hyperlipidemia, unspecified; E86.0 Dehydration; I11.0 Hypertensive heart disease with heart failure; I25.10 Atherosclerotic heart disease of native coronary artery without angina pectoris; I25.2 Old myocardial infarction; I08.0 Rheumatic disorders of both mitral and aortic valves; N14.1 Nephropathy induced by other drugs, medicaments and biological substances; T50.2X5A Adverse effect of carbonic-anhydrase inhibitors, benzothiadiazides and other diuretics, initial encounter; R32 Unspecified urinary incontinence; S39.93XA Unspecified injury of pelvis, initial encounter; W06.XXXA Fall from bed, initial encounter; Y92.013 Bedroom of single-family (private) house as the place of occurrence of the external cause; R29.6 Repeated falls; J47.9 Bronchiectasis, uncomplicated; Z79.899 Other long term (current) drug therapy; Z85.810 Personal history of malignant neoplasm of tongue; Z86.73 Personal history of transient ischemic attack (TIA), and cerebral infarction without residual deficits; Z79.02 Long term (current) use of antithrombotics/antiplatelets; Z79.890 Hormone replacement therapy; Z87.440 Personal history of urinary (tract) infections; Z95.1 Presence of aortocoronary bypass graft; E83.42 Hypomagnesemia; I73.9 Peripheral vascular disease, unspecified; I70.0 Atherosclerosis of aorta; R31.9 Hematuria, unspecified; T19.0XXA Foreign body in urethra, initial encounter; X58.XXXA Exposure to other specified factors, initial encounter; Y93.89 Activity, other specified; Y92.230 Patient room in hospital as the place of occurrence of the external cause
CPT/HCPCS: 36415; 70030-TC; 71045; 71275; 72170; 76770; 83605; 83735; 84100; 84443; 84550; 85025; 85730; 87040; 87086; 93005; 93307; 94640; 94664; A4663; G0378; J0456; J0696; J1940; J2543; J3370; J3475; J3590; J7030; J7040; J7050; J7060; J8999; Q9967

== ENCOUNTER 2018-11-25 22:54 | Inpatient (IN) | payer BC, MEDICARE ==
[~2018-11-25] VITALS: Ht 180.3 cm; Wt 56.4 kg
[~2018-11-25 22:54] MED LIST changes: -ACET325T53 PO; -ALFU10TA PO; +ALFU10TA10 PO; +ASPI-605 PO; -ASPI81TA31 PO; +LEVO75TA7 PO; -PROT30LI PO; -RXVAN XX; -TEMA7.5C PO; -TRAZ-213 PO
[2018-11-25 23:39] LABS: BASOPHILS # (AUTO) 0.1 K/uL (0.0-8.0); BASOPHILS % (AUTO) 0.9 % (0.0-2.0); EOSINOPHILS # (AUTO) 0.1 K/uL (0.0-0.7); EOSINOPHILS % (AUTO) 0.9 % (0.0-7.0); HEMOGLOBIN 11.6 g/dL (12.5-16.3); LYMPHOCYTES % (AUTO) 8.9 % (20.5-51.5); MEAN CORPUSCULAR HEMOGLOBIN 32.7 uug (23.8-33.4); MEAN CORPUSCULAR HGB CONC 34 g/dL (32.5-36.3); MEAN CORPUSCULAR VOLUME 96.2 fL (73.0-96.2); MONOCYTES # (AUTO) 0.7 K/uL (2.0-10.0); MONOCYTES % (AUTO) 6.1 % (0.0-11.0); NEUTROPHILS # (AUTO) 9.7 K/uL (1.8-8.9); NEUTROPHILS % (AUTO) 83.2 % (38.5-71.5); PLATELET COUNT (AUTO) 266 K/uL (152-348); RED BLOOD CELL COUNT(AUTO) 3.54 MIL/uL (4.06-5.63); WHITE BLOOD COUNT (AUTO) 11.6 K/uL (3.6-10.2)
[2018-11-25 23:42] LABS: CARBON DIOXIDE 19 mmol/L (21-32); CHLORIDE 107 mmol/L (98-107); CREATININE 2.3 mg/dL (0.6-1.3); GLUCOSE 95 mg/dL (74-106); POTASSIUM 4.1 mmol/L (3.5-5.1); UREA NITROGEN, BLOOD 58 mg/dL (7-18)
[2018-11-25 23:54] LABS: ALANINE AMINOTRANSFERASE 11 U/L (16-63); ALKALINE PHOSPHATASE 75 U/L (50-136); ASPARTATE AMINOTRANSFERASE 13 U/L (15-37); BILIRUBIN,DIRECT 0.1 mg/dL (0.0-0.2); BILIRUBIN,TOTAL 0.4 mg/dL (0.2-1.0); TOTAL PROTEIN, SERUM 7.8 g/dL (6.4-8.2)
--- NOTE | 2018-11-26 | NUR ---
Patient BIB RA for weakness from home. A/Ox2. Speech clear, speaks in complete sentences. Respiratory even and unlabored, no cough no sob. No cardiovascular distress noted, all pulses palpable. Denies any n/v/d. Patient in bed at lowest position, sr upx2, call light withi reach. Fall precautions implemented per protocol.
[2018-11-26] MEDS ORDERED: ONDANSETRON 4 MG/2 ML VIAL IV PRN (00:45)
[2018-11-26] MEDS ORDERED: MAGNESIUM HYDROXIDE 30 ML LIQUID UDC PO PRN (00:45)
[2018-11-26] MEDS ORDERED: IV NS 1000 ML 1,000 ML IV ONE (00:45)
--- NOTE | 2018-11-26 01:07 | NUR ---
Report given to KIMBERLY Arzola
--- NOTE | 2018-11-26 01:30 | NUR ---
Patient transported to TELE in stable condition.
[2018-11-26 02:01] VITALS: BP 90/50
[2018-11-26] MEDS ORDERED: PIPERACILLIN/TAZOBACTAM/D5W 50 ML IV ONE (03:26)
[2018-11-26 04:00] VITALS: BP 108/44
[2018-11-26] MEDS: PIPERACILLIN SODIUM/TAZOBACTAM 3.375 G in IV DEXTROSE 5% 50 ML IV SCH ×3 (05:06→22:00)
[2018-11-26 05:14] LABS: *BILIRUBIN,URIN NEGATIVE (NEGATIVE); *BLOOD, URINE 1+ (NEGATIVE); *CLARITY,URINE CLEAR (CLEAR); *COLOR,URINE YELLOW (YELLOW); *KETONES,URINE NEGATIVE (NEGATIVE); *UROBILINOGEN,URINE 0.2 E.U./dl (NORMAL); LEUKOCYTE ESTERASE ,URINE 2+ (NEGATIVE); NITRITE, URINE NEGATIVE (NEGATIVE); PH,URINE 5.5 (5.0-8.0); UGLUCOSE NEGATIVE (NEGATIVE)
[2018-11-26 05:25] LABS: BACTERIA,URINE FEW /HPF (NONE SEEN); SQUAMOUS EPITHELIAL CELL,UR FEW /HPF (NONE SEEN); WBC,URINE 20-50 /HPF (0-3)
[2018-11-26] MEDS ORDERED: LEVOTHYROXINE SODIUM 75 MCG TABLET PO SCH (07:00)
--- NOTE | 2018-11-26 07:30 | NUR ---
PATIENT IS AWAKE ALERT BUT IS FORGETFUL AT FIRST WAS REFUSING FOR THE BLOOD DRAW THIS MORNING WAS ABLE TO CONVINCE HIS AFTER ABOUT 5 MINUTES OF CONVINCING HIM TO ALLOW THE RADIOLOGY RN TO DRAW THE BLOOD REQUIRES MAX ASSIST FOR ALL ADL POOR SKIN INTERGRITY TURNED AND REPOSITIONED Q2H MADE COMFORTABLE AND WILL CONTINUE TO OBSERVE.
[2018-11-26 08:50] LABS: BASOPHILS % (AUTO) 0.3 % (0.0-2.0); EOSINOPHILS # (AUTO) 0.1 K/uL (0.0-0.7); HEMATOCRIT 30.4 % (36.7-47.1); HEMOGLOBIN 10.1 g/dL (12.5-16.3); LYMPHOCYTES # (AUTO) 0.7 K/uL (20.0-40.0); LYMPHOCYTES % (AUTO) 8.1 % (20.5-51.5); MEAN CORPUSCULAR HEMOGLOBIN 31.7 uug (23.8-33.4); MEAN CORPUSCULAR HGB CONC 33 g/dL (32.5-36.3); MEAN CORPUSCULAR VOLUME 95.5 fL (73.0-96.2); MONOCYTES # (AUTO) 0.7 K/uL (2.0-10.0); MONOCYTES % (AUTO) 7.6 % (0.0-11.0); NEUTROPHILS # (AUTO) 7.6 K/uL (1.8-8.9); PLATELET COUNT (AUTO) 209 K/uL (152-348); RED BLOOD CELL COUNT(AUTO) 3.18 MIL/uL (4.06-5.63); WHITE BLOOD COUNT (AUTO) 9.1 K/uL (3.6-10.2)
[2018-11-26] MEDS ORDERED: Medication Not On Formulary EA (Escitalopram Oxalate (Lexapro) 20 MG) PO SCH (09:00)
[2018-11-26] MEDS: ESCITALOPRAM OXALATE 10 MG TABLET PO SCH (09:01)
[2018-11-26] MEDS: CLOPIDOGREL 75 MG TABLET PO SCH (09:01)
[2018-11-26] MEDS: ASPIRIN EC 81 MG TABLET.DR PO SCH (09:01)
[2018-11-26] MEDS: METOPROLOL SUCCINATE XL 25 MG TAB.SR.24H PO SCH (09:02)
[2018-11-26] MEDS: Z GUARD REMEDY PASTE 57 GM TUBE TOP PRN (09:06)
[2018-11-26 09:34] LABS: ALANINE AMINOTRANSFERASE 7 U/L (16-63); ALKALINE PHOSPHATASE 58 U/L (50-136); ASPARTATE AMINOTRANSFERASE 12 U/L (15-37); BILIRUBIN,TOTAL 0.4 mg/dL (0.2-1.0); CARBON DIOXIDE 19 mmol/L (21-32); CHLORIDE 111 mmol/L (98-107); CREATININE 2.2 mg/dL (0.6-1.3); GLUCOSE 88 mg/dL (74-106); MAGNESIUM 1.7 mg/dL (1.8-2.4); PHOSPHOROUS 3.9 mg/dL (2.5-4.9); POTASSIUM 3.6 mmol/L (3.5-5.1); TOTAL PROTEIN, SERUM 6.2 g/dL (6.4-8.2); UREA NITROGEN, BLOOD 54 mg/dL (7-18)
[2018-11-26] MEDS ORDERED: MAGNESIUM SULFATE/D5W 100 ML IV SCH (10:45)
[2018-11-26] MEDS: ALFUZOSIN HCL 10 MG TAB.SR.24H PO SCH (10:59)
[2018-11-26 11:10] VITALS: BP 103/41
--- NOTE | 2018-11-26 12:59 | NUR ---
WOUND CARE CONSULT: PT PRESENTS WITH STAGE 3 ULCER TO LEFT POSTERIOR SHOULDER AREA, SCARRING TO RT SHOULDER AREA, SKIN TEAR TO LEFT JAWLINE/NECK AREA WITH MULTIPLE AREAS OF DISCOLORATION AND REDNESS, PRESENT ON ADMISSION. RECOMMEND SURGICAL CONSULT. DR LEDEZMA NOTIFIED OF CONSULT REQUEST. RECOMMENDATIONS MADE FOR SKIN PROTECTION. DISCUSSED WITH NURSING STAFF AND TIP BANDER. PER TIP BANDER, PT HAS RISK OF FALLING AND THEREFORE WOULD NOT RECOMMEND LOW AIRLOSS MATTRESS OVERLAY AT THIS TIME. WILL SEE PRN. IN AGREEMENT WITH PLAN OF CARE. CURRENT DAISY SCORE IS 15. Addendum: 11/26/18 at 1301 by PERRY MATHIAS RN Amended: Links added.
--- NOTE | 2018-11-26 14:28 | NUR ---
PATIENT SEEN A ND EXAMINED BY DR VALENZUELA SPOKE WITH PATIENTS AND EXPLAINED TO HER THE PLAN OF CARE MAG LEVEL IS 1.7 WITH REPLACEMENT ORDERS AND NOTED.
[2018-11-26] MEDS ORDERED: MISCELLANEOUS MED XX PRN (15:15)
[2018-11-26 15:30] VITALS: BP 120/47
--- NOTE | 2018-11-26 18:00 | NUR ---
PATIENTS DENNY HERE AND SIGNED THE CONSCENT FOR THE DEBRIDEMENT OF THE LEFT SHOULDER WOUND.TURNED AND REPOSITIONED Q2H HEELS FLOATED WITH DVT PUMPS IN USE MADE COMFORTABLE.
[2018-11-26 18:01] LABS: *BILIRUBIN,URIN NEGATIVE (NEGATIVE); *BLOOD, URINE 2+ (NEGATIVE); *CLARITY,URINE CLOUDY (CLEAR); *COLOR,URINE YELLOW (YELLOW); *KETONES,URINE NEGATIVE (NEGATIVE); *UROBILINOGEN,URINE 0.2 E.U./dl (NORMAL); NITRITE, URINE NEGATIVE (NEGATIVE); PH,URINE 5.5 (5.0-8.0); UGLUCOSE NEGATIVE (NEGATIVE)
[2018-11-26 18:40] LABS: LEUKOCYTE ESTERASE ,URINE 2+ (NEGATIVE)
[2018-11-26 18:42] LABS: *CREATININE,URINE 105.8 mg/dL (30-125); *URINE TOTAL PROTEIN RANDOM 60.9 mg/dL (<150/24HR); BACTERIA,URINE FEW /HPF (NONE SEEN); SQUAMOUS EPITHELIAL CELL,UR FEW /HPF (NONE SEEN); WBC,URINE 80-100 /HPF (0-3); YEAST,URINE MODERATE /HPF (NONE SEEN)
--- NOTE | 2018-11-26 20:00 | NUR ---
Received patient laying in bed. A/O x 2-3 with episodes of confusions. In room air. TELE SR at 75. Denies pain or SOB. Noted bilateral upper and lower ext. bruises. Noted Sacral Redness, Right shoulder blade wound and right neck scratch; Left open to air. Patient made a medium BM. Patient is able to ambulate with standby assists. Bed alarm on. Safety initiated. Call light within reach. Will continue to monitor.
[2018-11-26 20:16] VITALS: BP 102/46
[2018-11-26] MEDS: MIRTAZAPINE 15 MG TABLET PO SCH (20:27)
[2018-11-26] MEDS ORDERED: Medication Not On Formulary EA (Atorvastatin Calcium (Lipitor) 80 MG) PO SCH (21:00)
[2018-11-26] MEDS ORDERED: ATORVASTATIN 40 MG TABLET PO SCH (21:00)
[2018-11-26] MEDS ORDERED: MIRTAZAPINE 45 MG PO SCH (21:00)
[2018-11-27] VITALS: BP 110/49
[2018-11-27 04:00] VITALS: BP 105/52
--- NOTE | 2018-11-27 04:33 | NUR ---
Patient c/o pain in the abdomen. Bladder scan done, retaining 763 ml of urine. Contacted Dr. Redmond, gave orders for nazario cath insertion. Will continue to monitor.
--- NOTE | 2018-11-27 04:34 | NUR ---
Gave report to KIMBERLY Ahumada. Patient is in stable condition with no acute distress. All needs met. All meds given as ordered.
--- NOTE | 2018-11-27 04:35 | NUR ---
Hicks inserted. Patient tolerated it well. Will continue to monitor.
--- NOTE | 2018-11-27 04:45 | NUR ---
Received report from KIMBERLY Kidd. Received patient resting in bed, no signs of acute distress noted. Hicks catheter inserted, with good output. Will continue to monitor.
[2018-11-27] MEDS: PIPERACILLIN SODIUM/TAZOBACTAM 3.375 G in IV DEXTROSE 5% 50 ML IV SCH (06:10)
[2018-11-27] MEDS: LEVOTHYROXINE SODIUM 75 MCG TABLET PO SCH (06:21)
--- NOTE | 2018-11-27 08:00 | NUR ---
RECEIVED PT RESTING COMFORTABLY IN BED. NO ACUTE DISTRESS NOTED. NO SOB NOTED. CALL LIGHT WITHIN REACH. PT ON TELE MONITORING SINUS RHYTHM. WILL CONTINUE TO MONITOR.
[2018-11-27] MEDS: METOPROLOL SUCCINATE XL 25 MG TAB.SR.24H PO SCH (09:00)
[2018-11-27] MEDS: CLOPIDOGREL 75 MG TABLET PO SCH (09:00)
[2018-11-27] MEDS: ALFUZOSIN HCL 10 MG TAB.SR.24H PO SCH (09:00)
[2018-11-27] MEDS: ESCITALOPRAM OXALATE 10 MG TABLET PO SCH (09:00)
[2018-11-27] MEDS: ASPIRIN EC 81 MG TABLET.DR PO SCH (09:00)
--- NOTE | 2018-11-27 10:00 | NUR ---
PT REFUSED AM MEDS. EXPLAINED IMPORTANCE OF MEDS. WILL INFORM MD.
--- NOTE | 2018-11-27 10:30 | NUR ---
DR REAL AWARE OF PT'S MED REFUSAL.
[2018-11-27 12:00] VITALS: BP 132/58
--- NOTE | 2018-11-27 12:00 | NUR ---
PT IS RESTING COMFORTABLY IN BED. NO ACUTE DISTRESS OR SOB NOTED. CALL LIGHT WITHIN REACH. FAMILY MEMBER PRESENT. PT HAS BEEN DC'D FROM TELEMETRY. URINE HAS BECOME CLEARER YELLOW, STILL WITH SOME SCATTERED CLOTS.WILL CONTINUE TO MONITOR.
[2018-11-27] MEDS: CEFTRIAXONE 1 G in IV DEXTROSE 5% 50 ML IV SCH (14:07)
[2018-11-27] MEDS: FLUCONAZOLE 200 MG/NS 100ML IV 100 MG in PREMIXED 1 EACH IV SCH (15:02)
[2018-11-27 16:08] VITALS: BP 137/74
[2018-11-27 16:17] VITALS: BP 112/46
--- NOTE | 2018-11-27 18:00 | NUR ---
PT RESTING COMFORTABLY IN BED. AT BEDSIDE. NO ACUTE DISTRESS NOTED. NO SOB NOTED. URINE APPEARS GHAZALA AND CLOUDY. CALL LIGHT WITHIN REACH. SAFETY MEASURES IMPLEMENTED. PT IS MED SURG. VITAL SIGNS WNL. WILL GIVE SHIFT REPORT ACCORDINGLY.
--- NOTE | 2018-11-27 18:45 | NUR ---
PT REMOVED IV LINE. IV CATHETER INTACT. NO BLEEDING.
--- NOTE | 2018-11-27 19:00 | NUR ---
patient received up in bed alert and awake. patient is in no distress at this time. nazario is intact, iv site pulled out by patient per am nurse report, will replace. bed is locked with bed alarm on, call light within reach. remains afebrile. will continue to monitor.
[2018-11-27] MEDS ORDERED: MISCELLANEOUS MED XX STA (19:41)
--- NOTE | 2018-11-27 20:05 | NUR ---
INSERTED NEW IV LINE 22 G ON LEFT FOREARM, PATENT AND INTACT. NO INFILTRATION NOTED.
[2018-11-27 20:16] VITALS: BP 116/45
[2018-11-27] MEDS: MIRTAZAPINE 15 MG TABLET PO SCH (21:27)
[2018-11-27] MEDS: ATORVASTATIN 20 MG TABLET PO SCH (21:27)
[2018-11-28 04:58] VITALS: BP 147/46
[2018-11-28] MEDS: LEVOTHYROXINE SODIUM 75 MCG TABLET PO SCH (06:09)
--- NOTE | 2018-11-28 07:52 | NUR ---
RECEIVED PT RESTING. NO ACUTE DISTRESS OR SOB NOTED. SAFETY MEASURES IMPLEMENTED. CALL LIGHT WITHIN REACH. PT TURNED AND REPOSITIONED. IV PATENT AND INTACT. KIM INTACT. BED IN LOWEST POSITION, LOCKED WITH ALARM ON. WILL CONTINUE TO MONITOR.
[2018-11-28] MEDS: ESCITALOPRAM OXALATE 10 MG TABLET PO SCH (08:59)
[2018-11-28] MEDS: MULTIVIT, IRON, MIN NO. 8, FA TABLET PO SCH (09:01)
[2018-11-28] MEDS: CLOPIDOGREL 75 MG TABLET PO SCH (09:01)
[2018-11-28] MEDS: ASPIRIN EC 81 MG TABLET.DR PO SCH (09:01)
[2018-11-28] MEDS: METOPROLOL SUCCINATE XL 25 MG TAB.SR.24H PO SCH (09:02)
[2018-11-28] MEDS: ALFUZOSIN HCL 10 MG TAB.SR.24H PO SCH (09:05)
--- NOTE | 2018-11-28 12:00 | NUR ---
PT RESTING COMFORTABLY IN BED. NO ACUTE DISTRESS OR SOB NOTED. PT WAS MED COMPLIANT THIS AM. KIM CATHETER INTACT. CALL LIGHT WITHIN REACH. SAFETY MEASURES IMPLEMENTED. BED IN LOWEST POSITION, LOCKED WITH ALARM ON. WILL CONTINUE TO MONITOR.
[2018-11-28 12:04] VITALS: BP 112/50
[2018-11-28] MEDS: CEFTRIAXONE 1 G in IV DEXTROSE 5% 50 ML IV SCH (14:12)
[2018-11-28] MEDS: FLUCONAZOLE 200 MG/NS 100ML IV 100 MG in PREMIXED 1 EACH IV SCH (15:16)
[2018-11-28 15:50] VITALS: BP 118/45
--- NOTE | 2018-11-28 16:23 | NUR ---
REPORT GIVEN TO SERGEY HARRIS. NO ACUTE DISTRESS NOTED. NO SOB NOTED. KIM PATENT AND INTACT. SAFETY MEASURES IMPLEMENTED.
--- NOTE | 2018-11-28 18:47 | NUR ---
Report taken from Beny ,Patient agitated and confused wanting to get up out of bed. Patient is unaware of where he is at . Patient monitored closely through rest of shift. Patient educated about getting out of bed; patient unable to understand due to underlying diagnosis.
--- NOTE | 2018-11-28 19:51 | NUR ---
Report received from Harini HARRIS. Pt is in bed with no episodes of trying to get out of bed. Family at bedside. AxO to name but appears confused and forgetful. Requesting a warmer room, alerted house engrs. Indwelling nazario catheter intact, and patent draining yellow urine. Will continue to monitor.
[2018-11-28] MEDS: MIRTAZAPINE 15 MG TABLET PO SCH (20:21)
[2018-11-28] MEDS: ACETAMINOPHEN 325 MG TABLET PO PRN (20:21)
[2018-11-28] MEDS: ATORVASTATIN 20 MG TABLET PO SCH (20:21)
[2018-11-28 20:27] VITALS: BP 135/50
--- NOTE | 2018-11-28 21:51 | NUR ---
All due medicine given, and were tolerated well by patient. Slight dysphagia noted. Aspiration precautions reinforced. Patient is now resting well. Family not on bedside. Will reinforce fall precautions and monitor patient.
[2018-11-29] MEDS: LEVOTHYROXINE SODIUM 75 MCG TABLET PO SCH (06:06)
[2018-11-29 06:08] VITALS: BP 125/77
--- NOTE | 2018-11-29 07:19 | NUR ---
Patient slept through most of the shift. No major changes in condition. No pain or respiratory distress. Urine output is about 550 dark yellow/lakeisha urine that is cloudy and with sediments. Fluids reinforced, but patient only tolerated about 350 cc. Denies pain or discomfort in the pelvic area. Fall precautions maintained. Patient continues to be confused and had one episode of trying to get out in bed. Assisted back and reoriented. Able to be redirected. Endorsed to AM nurse in stable condition.
--- NOTE | 2018-11-29 07:30 | NUR ---
Patient calm and comfortable with no signs of distress; patient sleeping in bed with call light with in reach. Patient will continue to be monitored.
[2018-11-29] MEDS: ASPIRIN EC 81 MG TABLET.DR PO SCH (09:00)
[2018-11-29] MEDS: ESCITALOPRAM OXALATE 10 MG TABLET PO SCH (09:01)
[2018-11-29] MEDS: METOPROLOL SUCCINATE XL 25 MG TAB.SR.24H PO SCH (09:04)
[2018-11-29] MEDS: MULTIVIT, IRON, MIN NO. 8, FA TABLET PO SCH (09:04)
[2018-11-29] MEDS: ALFUZOSIN HCL 10 MG TAB.SR.24H PO SCH (09:05)
[2018-11-29] MEDS: CLOPIDOGREL 75 MG TABLET PO SCH (09:05)
[2018-11-29 12:07] VITALS: BP 122/45
[2018-11-29] MEDS ORDERED: ZIPRASIDONE MESYLATE 20 MG VIAL IM PRN (13:15)
[2018-11-29] MEDS: FLUCONAZOLE 200 MG/NS 100ML IV 100 MG in PREMIXED 1 EACH IV SCH (15:26)
[2018-11-29 15:40] VITALS: BP 153/59
[2018-11-29] MEDS: CEphaleXIN 500 MG CAPSULE PO SCH (18:15)
--- NOTE | 2018-11-29 18:53 | NUR ---
Patient calm and comfortable with moments of agitation; has stayed bedside through out the day. Patient medication compliant ; Patient redirected when confused. Report given to oncoming nurse
[2018-11-29 19:50] VITALS: BP 116/46
[2018-11-29] MEDS: MIRTAZAPINE 15 MG TABLET PO SCH (21:23)
[2018-11-29] MEDS: ATORVASTATIN 20 MG TABLET PO SCH (21:23)
[2018-11-30] MEDS: ACETAMINOPHEN 325 MG TABLET PO PRN (04:17)
[2018-11-30 04:43] VITALS: BP 146/53
--- NOTE | 2018-11-30 05:50 | NUR ---
patient slept intermittently. no signs of acute distress. v/s stable. all medication prescribed and tolerated well. will comminute to monitor and endorse accordingly to morning nurse.
[2018-11-30] MEDS: LEVOTHYROXINE SODIUM 75 MCG TABLET PO SCH (06:02)
[2018-11-30 06:40] LABS: BASOPHILS % (AUTO) 0.5 % (0.0-2.0); EOSINOPHILS # (AUTO) 0.3 K/uL (0.0-0.7); EOSINOPHILS % (AUTO) 4.3 % (0.0-7.0); HEMATOCRIT 29.3 % (36.7-47.1); HEMOGLOBIN 9.7 g/dL (12.5-16.3); LYMPHOCYTES # (AUTO) 1.1 K/uL (20.0-40.0); MEAN CORPUSCULAR HEMOGLOBIN 31.6 uug (23.8-33.4); MEAN CORPUSCULAR HGB CONC 33 g/dL (32.5-36.3); MONOCYTES % (AUTO) 12.9 % (0.0-11.0); NEUTROPHILS # (AUTO) 5.3 K/uL (1.8-8.9); NEUTROPHILS % (AUTO) 68.3 % (38.5-71.5); PLATELET COUNT (AUTO) 203 K/uL (152-348); RED BLOOD CELL COUNT(AUTO) 3.08 MIL/uL (4.06-5.63); WHITE BLOOD COUNT (AUTO) 7.7 K/uL (3.6-10.2)
[2018-11-30 07:22] LABS: ALANINE AMINOTRANSFERASE 12 U/L (16-63); ALKALINE PHOSPHATASE 60 U/L (50-136); ASPARTATE AMINOTRANSFERASE 24 U/L (15-37); BILIRUBIN,TOTAL 0.3 mg/dL (0.2-1.0); CARBON DIOXIDE 24 mmol/L (21-32); CHLORIDE 107 mmol/L (98-107); CREATININE 1.2 mg/dL (0.6-1.3); GLUCOSE 90 mg/dL (74-106); MAGNESIUM 1.4 mg/dL (1.8-2.4); POTASSIUM 3.5 mmol/L (3.5-5.1); UREA NITROGEN, BLOOD 26 mg/dL (7-18)
--- NOTE | 2018-11-30 08:00 | NUR ---
PATIENT IS AWAKE ALERT AND ORIENTED DENIES PAIN OR DISCOMFORTS AT THIS TIME NO NS/S OF HYPO/HYPERGLYCEMIC REACTIONS CALL LIGHTS AND PERSONAL BELONGINGS ARE WITHIN EASY REACH MADE COMFORTABLE NOT IN DISTRESS AT THIS TIME. Addendum: 11/30/18 at 1425 by OK GONZALES RN ERROR WRONG PATIENT
--- NOTE | 2018-11-30 09:00 | NUR ---
AWAKE ALERT TO SELF WITH CONFUSSION AND DISORIENTED ALL NEEDS ANTICIPATED AND SATISFIED TOTALLY DEPENDENT FOR ALL ADL TURNED AND REPOSITIONED Q2H TX IN PROGRESS ORDERED HEELS FLOATED MADE COMFORTABLE AND WILL CONTINUE TO OBSERVE.
[2018-11-30] MEDS: ESCITALOPRAM OXALATE 10 MG TABLET PO SCH (09:04)
[2018-11-30] MEDS: CLOPIDOGREL 75 MG TABLET PO SCH (09:04)
[2018-11-30] MEDS: MULTIVIT, IRON, MIN NO. 8, FA TABLET PO SCH (09:05)
[2018-11-30] MEDS: CEphaleXIN 500 MG CAPSULE PO SCH ×2 (09:05→17:06)
[2018-11-30] MEDS: ASPIRIN EC 81 MG TABLET.DR PO SCH (09:05)
[2018-11-30] MEDS: ALFUZOSIN HCL 10 MG TAB.SR.24H PO SCH (09:05)
[2018-11-30] MEDS: Z GUARD REMEDY PASTE 57 GM TUBE TOP PRN (09:06)
[2018-11-30] MEDS: METOPROLOL SUCCINATE XL 25 MG TAB.SR.24H PO SCH (09:06)
[2018-11-30 11:12] VITALS: BP 141/52
[2018-11-30] MEDS ORDERED: POTASSIUM CHLORIDE 20 MEQ POWDER PACKET PO ONE (13:15)
[2018-11-30] MEDS: MAGNESIUM SULFATE/D5W 100 ML IV SCH ×2 (13:32→14:31)
[2018-11-30] MEDS: ACIDOPHILUS/BULGARICUS CHEW TAB PO SCH ×2 (13:35→21:00)
[2018-11-30] MEDS: ZINC SULFATE 220 MG CAPSULE PO SCH (13:35)
[2018-11-30] MEDS: ASCORBIC ACID 500 MG TABLET PO SCH (13:35)
--- NOTE | 2018-11-30 14:00 | NUR ---
MAGNESSIUM LEVEL IS 1.4 AND POTASSIUM IS 3.[address] VERNON WITH NEW ORDERS AND NOTED.PATIENT IS ALERT BUT IS FORGETFUL ASKING FOR HIS AND HIS MOTHER AT TIMES REDIRECTED AND REORIENTED MADE COMFORTABLE.
[2018-11-30 15:15] VITALS: BP 106/56
[2018-11-30] MEDS: FLUCONAZOLE 200 MG/NS 100ML IV 100 MG in PREMIXED 1 EACH IV SCH (15:21)
--- NOTE | 2018-11-30 16:30 | NUR ---
DR SOTO HERE TO SEE PATIENT WITH NO NEW ORDERS AT THIS TIME.
[2018-11-30] MEDS: PROTEIN SUPPLEMENT (PROSTAT) 30 ML LIQUID PO SCH (17:06)
--- NOTE | 2018-11-30 18:15 | NUR ---
DR VALENZUELA HERE VISITED PATIENT WITH NO NEW ORDERS IS AT THE BEDSIDE WILL CONTINUE TO OBSERVE AND ENCOURAGE MEALS TURNING AND REPOSITIONING HEELS FLOATED.
--- NOTE | 2018-11-30 19:35 | NUR ---
Received patient awake in bed, confused, not in any form of distress. With IV access on the left forearm 22g, patent and intact. With nazario catheter to urine bag, noted with cloudy yellow urine output. Patient currently afebrile. Bed in low position, locked, side rails up for safety. Noise and lights subdued. Will continue to monitor.
[2018-11-30 19:55] VITALS: BP 107/48
[2018-11-30] MEDS: ATORVASTATIN 20 MG TABLET PO SCH (21:00)
[2018-11-30] MEDS: MIRTAZAPINE 15 MG TABLET PO SCH (21:00)
[2018-12-01 04:43] VITALS: BP 113/48
[2018-12-01] MEDS: LEVOTHYROXINE SODIUM 75 MCG TABLET PO SCH (06:33)
[2018-12-01] MEDS: ACETAMINOPHEN 325 MG TABLET PO PRN (06:36)
--- NOTE | 2018-12-01 07:05 | NUR ---
Patient slept intermittently throughout the night. No complaints were made. No untoward events noted. Contact isolation, observed. Will endorse accordingly.
--- NOTE | 2018-12-01 07:15 | NUR ---
RECEIVED PATIENT IN BED RESTING, NO C/O PAIN AT THIS TIME, NO S/S OF ACUTE DISTRESS NOTED, PATIENT IS COMFORTABLE , SAFETY AND COMFORT PROVIDED AT ALL TIMES. KEPT CLEAN AND DRY AT ALL TIMES. CALL LIGHT WITHIN REACHED AT ALL TIMES. WILL CONTINUE TO MONITOR.
[2018-12-01] MEDS: PROTEIN SUPPLEMENT (PROSTAT) 30 ML LIQUID PO SCH ×3 (08:37→17:11)
[2018-12-01] MEDS: ACIDOPHILUS/BULGARICUS CHEW TAB PO SCH ×2 (08:39→20:19)
[2018-12-01] MEDS: CLOPIDOGREL 75 MG TABLET PO SCH (08:39)
[2018-12-01] MEDS: ESCITALOPRAM OXALATE 10 MG TABLET PO SCH (08:39)
[2018-12-01] MEDS: ASCORBIC ACID 500 MG TABLET PO SCH (08:39)
[2018-12-01] MEDS: MULTIVIT, IRON, MIN NO. 8, FA TABLET PO SCH (08:39)
[2018-12-01] MEDS: ZINC SULFATE 220 MG CAPSULE PO SCH (08:39)
[2018-12-01] MEDS: ASPIRIN EC 81 MG TABLET.DR PO SCH (09:17)
[2018-12-01] MEDS: METOPROLOL SUCCINATE XL 25 MG TAB.SR.24H PO SCH (09:17)
[2018-12-01] MEDS: ALFUZOSIN HCL 10 MG TAB.SR.24H PO SCH (09:18)
--- NOTE | 2018-12-01 10:00 | NUR ---
NOTED PATIENT'S LEFT HAND SWOLLEN AND HIS LEFT SHOULDER A LITTLE SWOLLEN TOO, NO C/O PAIN AT THIS TIME, NO REDNESS ON THE AFFECTED AREA, PROVIDED COLD COMPRESSION ON THE AFFECTED AREA. WILL CONTINUE TO MONITOR AND PROVIDE COMFORT.
[2018-12-01 12:10] VITALS: BP 121/44
[2018-12-01] MEDS ORDERED: LINEZOLID IV 600 MG in PREMIXED 1 EACH IV SCH (13:00)
[2018-12-01 15:42] VITALS: BP 107/51
--- NOTE | 2018-12-01 16:30 | NUR ---
CONTINUE TO BE SEEN BY PHYSICAL THERAPY TOLERABLE
--- NOTE | 2018-12-01 16:32 | NUR ---
PATIENT IN BED RESTING, NO C/O PAIN AT THIS TIME, NO S/S OF ACUTE DISTRESS NOTED, PATIENT IS COMFORTABLE , SAFETY AND COMFORT PROVIDED AT ALL TIMES. KEPT CLEAN AND DRY AT ALL TIMES. CALL LIGHT WITHIN REACHED AT ALL TIMES. WILL CONTINUE TO MONITOR. GAVE REPORT TO ELAN
--- NOTE | 2018-12-01 17:04 | NUR ---
Received pt. from August. Pt. is resting in bed alert with at bedside. IV in left forearm 20 gauge intact patent. nazario catheter in place. Safety measures in place. call light within reach. Will continue to monitor pt.
--- NOTE | 2018-12-01 18:08 | NUR ---
Pt. drained 50 ml of urine in nazario. Using bladder scanner pt. is retaining 100 mLs of urine. Notified Dr. Lawler. No new orders made. Encouraging pt. to drink fluids.
--- NOTE | 2018-12-01 19:23 | NUR ---
Received patient awake in bed, confused, not in any form of distress. With IV access on the left forearm 22g, patent and intact. With nazario catheter to urine bag, noted with cloudy yellow urine output. Noted per morning shift patient with very minimal output and that Dr. Wright is already aware. Bed in low position, locked, side rails up for safety. Noise and lights subdued. Will continue to monitor.
[2018-12-01 20:00] VITALS: BP 117/47
[2018-12-01] MEDS: NITROFURANTOIN/NITROFURAN MAC 100 MG CAPSULE PO SCH (20:18)
[2018-12-01] MEDS: MIRTAZAPINE 15 MG TABLET PO SCH (20:19)
[2018-12-02 04:54] VITALS: BP 117/48
[2018-12-02] MEDS: LEVOTHYROXINE SODIUM 75 MCG TABLET PO SCH (06:05)
--- NOTE | 2018-12-02 06:14 | NUR ---
Patient slept intermittently throughout the night. No complaints were made. No untoward events noted. Contact isolation, observed. Will endorse accordingly.
--- NOTE | 2018-12-02 07:25 | NUR ---
PATIENT RECEIVED IN BED ASLEEP EASILY AROUSES WHEN TOUCHED OR NAME IS CALLED BUT PROMPTLY FALLS BACK TO SLEEP PATIENT IS ON ROOM AIR WITH NO SHORTNESS OF BREATH AT THIS TIME.HEELS ARE FLOATED CALL LIGHTS AND PERSONAL BELONGINGS ARE WITHIN EASY REACH WILL CONTINUE TO OBSERVE AND PROVIDE SAFE AND THERAPEUTIC ENVIRONMENT AT ALL TIMES.
[2018-12-02] MEDS: CLOPIDOGREL 75 MG TABLET PO SCH (08:44)
[2018-12-02] MEDS: ACIDOPHILUS/BULGARICUS CHEW TAB PO SCH (08:44)
[2018-12-02] MEDS: NITROFURANTOIN/NITROFURAN MAC 100 MG CAPSULE PO SCH (08:44)
[2018-12-02] MEDS: PROTEIN SUPPLEMENT (PROSTAT) 30 ML LIQUID PO SCH ×3 (08:44→17:22)
[2018-12-02] MEDS: ALFUZOSIN HCL 10 MG TAB.SR.24H PO SCH (08:45)
[2018-12-02] MEDS: ESCITALOPRAM OXALATE 10 MG TABLET PO SCH (08:45)
[2018-12-02] MEDS: ASPIRIN EC 81 MG TABLET.DR PO SCH (08:45)
[2018-12-02] MEDS: ZINC SULFATE 220 MG CAPSULE PO SCH (08:45)
[2018-12-02] MEDS: METOPROLOL SUCCINATE XL 25 MG TAB.SR.24H PO SCH (08:46)
[2018-12-02] MEDS: Z GUARD REMEDY PASTE 57 GM TUBE TOP PRN (08:47)
[2018-12-02] MEDS: MULTIVIT, IRON, MIN NO. 8, FA TABLET PO SCH (08:57)
[2018-12-02] MEDS: ASCORBIC ACID 500 MG TABLET PO SCH (08:57)
[2018-12-02] MEDS ORDERED: FOSFOMYCIN TROMETHAMINE 3 GM PACKET PO ONE (11:30)
[2018-12-02 11:44] VITALS: BP 97/43
--- NOTE | 2018-12-02 13:45 | NUR ---
NOTED REDNESS /SWELLING OF THE LEFT HAND/WRIST PATIENT STATED HAS PAIN WHEN TOUCHED DR VALENZUELA NOTIFIED WITH ORDER TO DO A STAT XRAY AND NOTED.
--- NOTE | 2018-12-02 14:53 | NUR ---
D/C PLANNING PER THE NET SORTER PATIENT WILL BE DISCHARGED TO [facility] TODAY AWAITING FOR DISCHARGE ORDER FROM DR VALENZUELA.
--- NOTE | 2018-12-02 15:45 | NUR ---
CALLED THE [facility] AND REPORT GIVEN TO MATEUS THE RN NOTE TELLER FOR CONTINUING CARE.
[2018-12-02 16:00] VITALS: BP 112/48
--- NOTE | 2018-12-02 16:02 | NUR ---
PATIENTS DENNY IS AT THE BEDSIDE AND AWARE THAT PATIENT WILL BE DISCHARGED TO [facility] TODAY AND EXPRESSED UNDERSTANDING
[2018-12-02] MEDS ORDERED: ASCO500T9 PO (16:26)
[2018-12-02] MEDS ORDERED: ACID1TAB4 PO (16:26)
[2018-12-02] MEDS ORDERED: ZINC220C8 PO (16:26)
[2018-12-02] MEDS ORDERED: Multivit, Iron, Min No. 8, Fa PO (16:26)
[2018-12-02] MEDS ORDERED: MAGN400O6 PO (16:26)
[2018-12-02] MEDS ORDERED: PROT30LI PO (16:26)
[2018-12-02] MEDS ORDERED: MENT71OI TOP (16:26)
[2018-12-02] MEDS ORDERED: ALFU10TA10 PO (16:26)
[2018-12-02] MEDS ORDERED: CALC-555 PO (16:28)
--- NOTE | 2018-12-02 18:24 | NUR ---
AWAITING FOR THE AMBULANCE TO PICK PATIENT UP ETA WAS SUPPOSED TO BE AT 1800
--- NOTE | 2018-12-02 19:00 | NUR ---
AMBULANCE HERE AND REPORT GIVEN TO THE AMBULANCE TECH AND PATIENT DISCHARGED TO [facility] WITH NO PERSONAL BELONGINGS SEEN.
== END 2018-12-02 19:10 | DRG 853 ==
LOC: ER 22:54 → TELE3 23:50 → MEDSURG3 11-27 11:49
PROVIDERS: ADMIT Registered Nurse; ATTEND Internal Medicine
PROC: 0JBF0ZZ Excision of Left Upper Arm Subcutaneous Tissue and Fascia, Open Approach (ICD-10-PCS; principal; 2018-11-27)
DX: A41.9 Sepsis, unspecified organism (principal); G92 Toxic encephalopathy; E43 Unspecified severe protein-calorie malnutrition; N17.0 Acute kidney failure with tubular necrosis; N39.0 Urinary tract infection, site not specified; Z68.1 Body mass index [BMI] 19.9 or less, adult; I13.0 Hypertensive heart and chronic kidney disease with heart failure and stage 1 through stage 4 chronic kidney disease, or unspecified chronic kidney disease; I50.32 Chronic diastolic (congestive) heart failure; D68.59 Other primary thrombophilia; J98.11 Atelectasis; A04.9 Bacterial intestinal infection, unspecified; G30.9 Alzheimer's disease, unspecified; F02.80 Dementia in other diseases classified elsewhere, unspecified severity, without behavioral disturbance, psychotic disturbance, mood disturbance, and anxiety; R80.9 Proteinuria, unspecified; Z85.810 Personal history of malignant neoplasm of tongue; E83.42 Hypomagnesemia; Z96.643 Presence of artificial hip joint, bilateral; Z95.1 Presence of aortocoronary bypass graft; Z86.73 Personal history of transient ischemic attack (TIA), and cerebral infarction without residual deficits; M48.00 Spinal stenosis, site unspecified; E03.9 Hypothyroidism, unspecified; Z79.890 Hormone replacement therapy; N40.0 Benign prostatic hyperplasia without lower urinary tract symptoms; N18.2 Chronic kidney disease, stage 2 (mild); R29.6 Repeated falls; Z87.440 Personal history of urinary (tract) infections; I73.9 Peripheral vascular disease, unspecified; Z79.02 Long term (current) use of antithrombotics/antiplatelets; B95.2 Enterococcus as the cause of diseases classified elsewhere; Z16.21 Resistance to vancomycin; K82.8 Other specified diseases of gallbladder; I49.3 Ventricular premature depolarization; Z86.14 Personal history of Methicillin resistant Staphylococcus aureus infection; Z91.81 History of falling; I25.2 Old myocardial infarction; I25.10 Atherosclerotic heart disease of native coronary artery without angina pectoris; E78.5 Hyperlipidemia, unspecified; D64.9 Anemia, unspecified; M85.842 Other specified disorders of bone density and structure, left hand
CPT/HCPCS: 36415; 70030-TC; 71045; 73130; 83605; 83735; 84100; 84153; 84156; 84300; 84443; 85025; 85730; 87040; 87077; 87086; 93005; A4663; G0378; J0696; J1450; J2543; J3475; J7030; J7060; J8499

== ENCOUNTER 2018-12-09 22:31 | Inpatient (IN) | payer MEDICARE, BC ==
[~2018-12-09] VITALS: Ht 172.7 cm; Wt 59.0 kg
[~2018-12-09 22:31] MED LIST changes: +ACID1TAB4 PO; +ASCO500T9 PO; -ATOR80TA PO; +CALC-555 PO; +MAGN400O6 PO; +MENT71OI TOP; +Multivit, Iron, Min No. 8, Fa PO; +PROT30LI PO; +ZINC220C8 PO
--- NOTE | 2018-12-09 22:50 | NUR ---
DR HAGAN at bedside for MSE
[2018-12-09] MEDS ORDERED: SODIUM BICARBONATE 4.2 % (NEUT) 5 ML VIAL ONE (22:52)
[2018-12-09] MEDS ORDERED: ONDANSETRON 4 MG/2 ML VIAL IV ONE (23:00)
[2018-12-09] MEDS ORDERED: SODIUM BICARBONATE 4.2 % (NEUT) 5 ML VIAL TP ONE (23:00)
[2018-12-09] MEDS ORDERED: HYDROMORPHONE 1 MG/1 ML DISP.SYRIN IV ONE (23:00)
[2018-12-09] MEDS ORDERED: IV NORMAL SALINE 500 ML BAG IV ONE (23:00)
[2018-12-09] MEDS ORDERED: TDAP DIPH,PERTUSS,TET VAC/PF 0.5 ML DISP.SYRIN IM ONE (23:00)
[2018-12-09] MEDS ORDERED: LIDOCAINE 1%-EPI 1:100,000 20 ML VIAL IJ ONE (23:00)
[2018-12-09] MEDS ORDERED: CEFTRIAXONE 1 G in IV DEXTROSE 5% 50 ML IV ONE (23:15)
[2018-12-09] MEDS ORDERED: HYDROMORPHONE 1 MG/1 ML DISP.SYRIN ONE (23:23)
[2018-12-09] MEDS ORDERED: ONDANSETRON 4 MG/2 ML VIAL ONE (23:24)
[2018-12-09 23:28] LABS: BASOPHILS # (AUTO) 0.1 K/uL (0.0-8.0); BASOPHILS % (AUTO) 0.7 % (0.0-2.0); EOSINOPHILS # (AUTO) 0.1 K/uL (0.0-0.7); EOSINOPHILS % (AUTO) 0.6 % (0.0-7.0); HEMATOCRIT 27.8 % (36.7-47.1); HEMOGLOBIN 9.6 g/dL (12.5-16.3); LYMPHOCYTES # (AUTO) 0.9 K/uL (20.0-40.0); LYMPHOCYTES % (AUTO) 8.9 % (20.5-51.5); MEAN CORPUSCULAR HEMOGLOBIN 32.6 uug (23.8-33.4); MEAN CORPUSCULAR HGB CONC 34 g/dL (32.5-36.3); MEAN CORPUSCULAR VOLUME 94.7 fL (73.0-96.2); MONOCYTES # (AUTO) 0.8 K/uL (2.0-10.0); MONOCYTES % (AUTO) 7.4 % (0.0-11.0); NEUTROPHILS # (AUTO) 8.5 K/uL (1.8-8.9); NEUTROPHILS % (AUTO) 82.4 % (38.5-71.5); PLATELET COUNT (AUTO) 299 K/uL (152-348); RED BLOOD CELL COUNT(AUTO) 2.94 MIL/uL (4.06-5.63); WHITE BLOOD COUNT (AUTO) 10.3 K/uL (3.6-10.2)
--- NOTE | 2018-12-09 23:33 | NUR ---
PT SENT DOWN FOR CT. NO ACUTE DISTRESS NOTED.
[2018-12-09] MEDS ORDERED: CEFTRIAXONE 1 G VIAL ONE (23:48)
[2018-12-09 23:50] LABS: BILIRUBIN,DIRECT 0.2 mg/dL (0.0-0.2); BILIRUBIN,TOTAL 0.4 mg/dL (0.2-1.0); CREATININE 1.1 mg/dL (0.6-1.3); POTASSIUM 4.2 mmol/L (3.5-5.1); TOTAL PROTEIN, SERUM 6.5 g/dL (6.4-8.2)
--- NOTE | 2018-12-10 | NUR ---
PT BACK FROM CT
[2018-12-10] MEDS ORDERED: TDAP DIPH,PERTUSS,TET VAC/PF 0.5 ML DISP.SYRIN IM ONE (00:02)
[2018-12-10 00:31] LABS: *OCCULT BLOOD STOOL POSITIVE (NEGATIVE)
[2018-12-10] MEDS ORDERED: CRAN425C6 PO (01:02)
[2018-12-10] MEDS ORDERED: ACET-2154 PO (01:02)
[2018-12-10] MEDS ORDERED: MULT1TAB73 PO (01:02)
[2018-12-10] MEDS ORDERED: ONDANSETRON 4 MG/2 ML VIAL IV PRN (01:45)
[2018-12-10] MEDS ORDERED: Z GUARD REMEDY PASTE 57 GM TUBE TOP PRN ×2 (01:45)
[2018-12-10] MEDS ORDERED: HYDROCODONE/APAP 5-325MG TABLET PO PRN (01:45)
[2018-12-10] MEDS ORDERED: ACETAMINOPHEN 325 MG TABLET PO PRN ×2 (01:45)
[2018-12-10] MEDS ORDERED: MAGNESIUM HYDROXIDE 30 ML LIQUID UDC PO PRN ×2 (01:45)
--- NOTE | 2018-12-10 01:52 | NUR ---
Pt. admitted to [facility] ROOM 308 , under care of Dr. RIOJAS Belongs List completed. VSS, NO ACUTE DISTRESS NOTED
[2018-12-10 02:49] VITALS: BP 130/55
--- NOTE | 2018-12-10 03:00 | NUR ---
TELE ADMISSION Patient transported via gurney by ER nurse arrived at 0215. Pt awake, alert, and verbally responsive. Oriented to self, place and time. But noted with memory recall issue, unable to remember why he is here. Had to remind about the fall. Admission process started. Belongings checked with Marisa COOK and documented on chart. Physical assessment done, all skin breakdown documented and photos taken. Patient able to answer some of admission questions, the others obtained from previous record. Denies any pain or discomfort. Indwelling nazario catheter intact draining to yellow urine, with some sediments noted. Very pleasant. Perineal care provided. Gown changed. Tele monitoring started. All needs taken care of at this time, will continue to monitor.
[2018-12-10] MEDS: IV NS 1000 ML 1,000 ML IV PRN ×2 (05:42→20:47)
--- NOTE | 2018-12-10 06:44 | NUR ---
END OF SHIFT Patient asleep at this time. No signs of discomfort noted. All VS stable at 0400. No noted rectal bleeding. Tele monitoring shows Sinus Rhythm at 80-86 with some PVC's. Fall precautions maintained. Will endorse to next shift accordingly.
[2018-12-10] MEDS: LEVOTHYROXINE SODIUM 75 MCG TABLET PO SCH (07:30)
--- NOTE | 2018-12-10 07:33 | NUR ---
RECEIVED PATIENT ASLEEP EASILY AROUSABLE ON ROUND ALERT TO SELF WITH CONFUSSION AND DISORIENTATION ALL NEEDS ANTICIPATED AND SATISFIED TURNED AND REPOSITIONED CONTINUED WITH TELE MONITORING WILL CONTINUE TO OBSERVE AND PROVIDE SAFE AND THERAPEUTIC ENVIRONMENTS AT ALL TIMES.
[2018-12-10] MEDS: ZINC SULFATE 220 MG CAPSULE PO SCH (09:22)
[2018-12-10] MEDS: CALCIUM CARB/VITAMIN D 500MG-200UNITS TABLET PO SCH (09:22)
[2018-12-10] MEDS: ASCORBIC ACID 500 MG TABLET PO SCH (09:23)
[2018-12-10] MEDS: ACIDOPHILUS/BULGARICUS CHEW TAB PO SCH ×2 (09:23→20:47)
[2018-12-10] MEDS: METOPROLOL SUCCINATE XL 25 MG TAB.SR.24H PO SCH (09:23)
[2018-12-10 10:57] VITALS: BP 116/53
--- NOTE | 2018-12-10 14:45 | NUR ---
WOUND CARE CONSULT: PT PRESENTS WITH MULTIPLE WOUNDS AND SKIN ISSUES INCLUDING LARGE SKIN TEAR TO LEFT UPPER ARM/SHOULDER AREA, SUTURED LACERATION TO LEFT FOREARM WITH SOME SEROSANGUINOUS DRAINAGE, ESCHAR TO LEFT JAW/NECK AREA, ESCHAR TO TOP OF HEAD, ESCHAR TO LEFT POSTERIOR SHOULDER, SCARRING TO RT POSTERIOR SHOULDER AND INCONTINENCE ASSOCIATED REDNESS TO BUTTOCKS, ALL PRESENT ON ADMISSION. Addendum: 12/10/18 at 1448 by PERRY MATHIAS RN Amended: Links added. Addendum: 12/10/18 at 1449 by PERRY MATHIAS RN RECOMMEND SURGICAL CONSULT/FOLLOW UP. DR LEDEZMA NOTIFIED OF CONSULT REQUEST. ALL SKIN PROTECTION RECOMMENDATIONS DISCUSSED WITH NURSING STAFF. WILL SEE PRN. MONTERO IN AGREEMENT WITH PLAN OF CARE.
[2018-12-10 16:00] VITALS: BP 115/52
--- NOTE | 2018-12-10 18:00 | NUR ---
GETTING MORE CONFUSED ASKING ABOUT THE SAME THINGS OVER AND OVER AGAIN REASSURED AND MADE COMFORTABLE AND WILL CONTINUE TO OBSERVE.
--- NOTE | 2018-12-10 20:00 | NUR ---
Received patient laying comfortably in bed. at bedside. A/O 1-2 with episodes of confusions. Patient denies pain or SOB. TELE SR at 86. In room air. Noted left forehead abrasion, C/D/I. IV on the right FA, patent and intact. intermediate assessment done, multiple skin issues (skin tear) on bilateral upper arms. Left arm is wrapped with kerlix. Sacral, scrotum, spine (bony prominences) redness. Safety initiated. Call light within reach. Will closely monitor.
[2018-12-10 22:35] VITALS: BP 114/42
[2018-12-11 01:09] VITALS: BP 109/53
--- NOTE | 2018-12-11 05:36 | NUR ---
Patient slept t/o shift. No acute distress noted. Patient IVF running on the left FA. Patent and intact. Med compliant. Aspiration precautions observed. TELE SR at 79. Vital signs stable. Small BM x 1. Good urine output. Hicks draining clear and yellow urine. All meds given as ordered. All needs met. Safety and comfort measures maintained t/o shift.
--- NOTE | 2018-12-11 06:10 | NUR ---
Wound care provided on the left arm. Will continue to monitor.
[2018-12-11] MEDS: LEVOTHYROXINE SODIUM 75 MCG TABLET PO SCH ×2 (06:21→06:38)
[2018-12-11 06:36] VITALS: BP 120/50
--- NOTE | 2018-12-11 08:00 | NUR ---
ASLEEP EASILY AROUSABLE WHEN TOUCHED OR NAME IS CALLED TOTALLY DEPENDENT ON NURSES FOR ALL ADL TURNED AND REPOSITIONED Q2H.IVF IN PROGRESS ORDERED APPETITE IS POOR ENCOURAGED TO EAT MADE COMFORTABLE AND WILL CONTINUE TO OBSERVE.
[2018-12-11] MEDS: ASCORBIC ACID 500 MG TABLET PO SCH (08:41)
[2018-12-11] MEDS: CALCIUM CARB/VITAMIN D 500MG-200UNITS TABLET PO SCH (08:41)
[2018-12-11] MEDS: ACIDOPHILUS/BULGARICUS CHEW TAB PO SCH ×2 (08:41→20:37)
[2018-12-11] MEDS: ZINC SULFATE 220 MG CAPSULE PO SCH (08:41)
[2018-12-11] MEDS: METOPROLOL SUCCINATE XL 25 MG TAB.SR.24H PO SCH (08:42)
[2018-12-11 11:56] VITALS: BP 119/50
[2018-12-11] MEDS: IV NS 1000 ML 1,000 ML IV PRN (12:26)
--- NOTE | 2018-12-11 12:30 | NUR ---
AMBULATED WITH THE PHYSICAL THERAPY WITH [facility] AT THIS TIME.
--- NOTE | 2018-12-11 15:00 | NUR ---
APPETITE CONTINUES TO BE POOR DESPITE ATTEMPTS TO FEED AND ASSIST HIM MADE COMFORTABLE NOT IN DISTRESS AT THIS TIME WILL CONTINUE TO OBSERVE.
[2018-12-11 16:26] VITALS: BP 122/50
--- NOTE | 2018-12-11 18:29 | NUR ---
RECEIVED A CALL FROM THE [facility] FOR POSITIVE MRSA NARES DR VALENZUELA NOTIFIED WITH ORDER TO PLACE ON ISOLATION AND TO START BACTROBAN AND NOTED.
[2018-12-11 20:00] VITALS: BP 106/35
--- NOTE | 2018-12-11 20:00 | NUR ---
RECEIVED PT VERBALLY RESPONSIVE BUT FORGETFUL. IVF NS @ 75CC/HR ON RFA. NO SIGNS OF INFILTRATION. KIM CATH IN PLACE TO GRAVITY DRAINAGE BAG W/ CLEAR GHAZALA URINE. C-SCOPE SR. REPOSITIONED ON HIS SIDE W/ HOB ELEVATED. NOT IN ANY DISTRESS.
[2018-12-11] MEDS: MUPIROCIN 2% OINT 22 GM TUBE NS SCH (20:38)
[2018-12-12] VITALS: BP 136/51
[2018-12-12] MEDS: IV NS 1000 ML 1,000 ML IV PRN (02:07)
[2018-12-12 06:58] LABS: ALANINE AMINOTRANSFERASE 19 U/L (16-63); ALKALINE PHOSPHATASE 65 U/L (50-136); ASPARTATE AMINOTRANSFERASE 18 U/L (15-37); BILIRUBIN,TOTAL 0.4 mg/dL (0.2-1.0); CARBON DIOXIDE 19 mmol/L (21-32); CHLORIDE 109 mmol/L (98-107); CREATININE 0.8 mg/dL (0.6-1.3); GLUCOSE 55 mg/dL (74-106); POTASSIUM 3.2 mmol/L (3.5-5.1); TOTAL PROTEIN, SERUM 5.5 g/dL (6.4-8.2); UREA NITROGEN, BLOOD 15 mg/dL (7-18)
[2018-12-12] MEDS: LEVOTHYROXINE SODIUM 75 MCG TABLET PO SCH (08:05)
[2018-12-12] MEDS: ZINC SULFATE 220 MG CAPSULE PO SCH (09:28)
[2018-12-12] MEDS: ACIDOPHILUS/BULGARICUS CHEW TAB PO SCH (09:28)
[2018-12-12] MEDS: ASCORBIC ACID 500 MG TABLET PO SCH (09:28)
[2018-12-12] MEDS: CALCIUM CARB/VITAMIN D 500MG-200UNITS TABLET PO SCH (09:28)
[2018-12-12] MEDS: MUPIROCIN 2% OINT 22 GM TUBE NS SCH (09:31)
[2018-12-12] MEDS: METOPROLOL SUCCINATE XL 25 MG TAB.SR.24H PO SCH (09:32)
[2018-12-12 11:24] VITALS: BP 127/66
[2018-12-12 12:00] VITALS: BP 123/49
[2018-12-12] MEDS ORDERED: POTASSIUM CHLORIDE 20 MEQ TAB.PRT.SR PO ONE (15:15)
[2018-12-12 16:00] VITALS: BP 159/129
--- NOTE | 2018-12-12 16:24 | NUR ---
Patient left by ambulance, d/c teaching given to viridiana with dc papers, TMS print out, FC is left, IV removed VS 136/57, hr 63. rr16 o2 96% RA
[2018-12-12] MEDS ORDERED: POTA10CA43 PO (17:00)
--- NOTE | 2018-12-12 18:15 | NUR ---
CALLED [facility] FOR REPORT, REPORT GIVEN TO MCKINLEY
== END 2018-12-12 16:30 | DRG 604 ==
LOC: ER 22:38 → TELE3 12-10 00:45
PROVIDERS: ATTEND Internal Medicine
PROC: 0HQ1XZZ Repair Face Skin, External Approach (ICD-10-PCS; principal; 2018-12-10)
PROC: 0HQEXZZ Repair Left Lower Arm Skin, External Approach (ICD-10-PCS; 2018-12-10)
DX: S01.81XA Laceration without foreign body of other part of head, initial encounter (principal); E43 Unspecified severe protein-calorie malnutrition; K92.2 Gastrointestinal hemorrhage, unspecified; D62 Acute posthemorrhagic anemia; Z68.1 Body mass index [BMI] 19.9 or less, adult; I50.32 Chronic diastolic (congestive) heart failure; D68.59 Other primary thrombophilia; S00.03XA Contusion of scalp, initial encounter; S51.812A Laceration without foreign body of left forearm, initial encounter; S61.411A Laceration without foreign body of right hand, initial encounter; G90.8 Other disorders of autonomic nervous system; W06.XXXA Fall from bed, initial encounter; Y92.122 Bedroom in nursing home as the place of occurrence of the external cause; Z66 Do not resuscitate; Z96.643 Presence of artificial hip joint, bilateral; Z86.73 Personal history of transient ischemic attack (TIA), and cerebral infarction without residual deficits; Z22.322 Carrier or suspected carrier of Methicillin resistant Staphylococcus aureus; M19.041 Primary osteoarthritis, right hand; I25.10 Atherosclerotic heart disease of native coronary artery without angina pectoris; Z85.810 Personal history of malignant neoplasm of tongue; S40.012A Contusion of left shoulder, initial encounter; S11.91XA Laceration without foreign body of unspecified part of neck, initial encounter; I73.9 Peripheral vascular disease, unspecified; G30.9 Alzheimer's disease, unspecified; F02.80 Dementia in other diseases classified elsewhere, unspecified severity, without behavioral disturbance, psychotic disturbance, mood disturbance, and anxiety; E78.5 Hyperlipidemia, unspecified; E87.6 Hypokalemia; M85.80 Other specified disorders of bone density and structure, unspecified site; N40.0 Benign prostatic hyperplasia without lower urinary tract symptoms; S40.022A Contusion of left upper arm, initial encounter; Z79.02 Long term (current) use of antithrombotics/antiplatelets; Z79.890 Hormone replacement therapy; Z79.899 Other long term (current) drug therapy; Z91.81 History of falling; M48.00 Spinal stenosis, site unspecified; Z91.19 Patient's noncompliance with other medical treatment and regimen
CPT/HCPCS: 36415; 70030-TC; 70450; 72125; 73060; 73090; 73130; 85025; 85730; 90715; 93005; A4663; G0378; J0696; J1170; J2405; J3490; J7030; J7060

== ENCOUNTER 2019-01-05 19:26 | Emergency (ER) | payer BC, MEDICARE ==
[~2019-01-05] VITALS: Ht 172.7 cm; Wt 65.8 kg
[~2019-01-05 19:26] MED LIST changes: +ACET-2154 PO; -CLOP75TA15 PO; +CRAN425C6 PO; -MAGN400O6 PO; +MULT1TAB73 PO; +POTA10CA43 PO
--- NOTE | 2019-01-05 19:26 | NUR ---
patient brought in by ambulance. patient placed in the room and connected to monitor to check vital signs. patient not breathing with no spontaneous respiration, no apical, radial, or brachial pulse palpatated, no corneal reflex, pale in color and cold to touch. ER Physician, Dr. Harvey, at site to assess patient. patient was prnounced by physician at 1930. patient came in with advance directive stating DNR. Patient came in with .
--- NOTE | 2019-01-05 19:59 | NUR ---
Called [facility], . Spoke to Jina regarding information on the patient. 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
--- NOTE | 2019-01-05 20:37 | NUR ---
SELVIN GUILLORY [phone] SPOKE TO TEE. CASE # [id number].
--- NOTE | 2019-01-05 20:38 | NUR ---
called [facility] sellers, spoke to Zheng, to follow up with SHANI for patient bean picker arrival. she stated they will call back
--- NOTE | 2019-01-05 20:47 | NUR ---
spoke to [employer] respresenative, Jerry Cantor, in regards to patient information. Reference # [id number]
--- NOTE | 2019-01-05 20:49 | NUR ---
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
--- NOTE | 2019-01-05 21:22 | NUR ---
[facility] sellers represenative here to pick up man patient.
--- NOTE | 2019-01-05 21:29 | NUR ---
patient was picked up by two representaives from [facility]. All information given to Son Boo. All documents signed and placed in patient chart at discharge. Family is aware of picker box operator and stated they have made prior arrange with [facility]. Post mortem care was done prior to patient being picked up by [facility].
== END 2019-01-05 21:34 | disposition expired ==
LOC: ER 19:26
DX: R53.1 Weakness (principal); E78.5 Hyperlipidemia, unspecified; F41.9 Anxiety disorder, unspecified; F32.9 Major depressive disorder, single episode, unspecified; Z79.899 Other long term (current) drug therapy; Z86.73 Personal history of transient ischemic attack (TIA), and cerebral infarction without residual deficits